=== PATIENT | female | born 1935 | race Caucasian/White ===

== ENCOUNTER → 2020-08-15 10:15 | Outpatient (BNVA) | payer MEDICARE, SELFPAY | PROVIDERS: PCP Internal Medicine; Visit Provider Internal Medicine Cardiovascular Disease ==

== ENCOUNTER → 2020-08-30 09:02 | Outpatient (REF) | payer MEDICARE, SELFPAY ==
--- NOTE | ~2020-08-30 | NM_ITS ---
Exercise Myocardial perfusion study Indication: Chest pain and shortness of breath to evaluate for myocardial ischemia Technique: The patient was brought in for an exercise perfusion study on 08/30/2020. Patient performed exercise as per Sanket protocol and was injected 30 mCi of sestamibi was given intravenously one target HR was achieved. Images were obtained using the SPECT gamma camera interlaced with the gating device. Images were obtained in supine position. Resting perfusion study was performed on 08/31/2020. Patient was administered 30 mCi of sestamibi intravenously at rest. Images were then obtained in supine position. Images obtained with and without CT attenuation. Total DLP 153 mGy-cm. Images were processed with the software and compared side to side in short axis, horizontal long axis and vertical long axis views. Findings: The stress perfusion study showed both on attenuated as well as attenuated corrected images show normal uptake of radiotracer in all segments of LV myocardium. There is suggestion of left ventricle hypertrophy.. The gated study shows normal LV systolic function with calculated LVEF of 70%. LV cavity is normal in size. The gated study shows normal systolic wall thickening and contraction of all segments. There is no transient ischemic dilation. Resting study shows nontender images show mildly reduced uptake in the basal and mid lateral wall of the LV myocardium. Attenuation corrected images show minimally reduced uptake in the distal septum of the LV myocardium.. Gating at rest reveals normal systolic wall motion with visually estimated ejection fraction at greater than 70 %. The findings are consistent with normal myocardial perfusion. NM/NM cardiolite stress test Impression: 1. Normal myocardial fusion 2. Gated LVEF is 70% 3. Transient ischemic dilatation not present Stress EKG is positive for ischemia
--- NOTE | 2020-08-30 09:06 | CA_ITS ---
Transthoracic Echocardiogram Patient (Last, First, Middle): Vanessa Hightower, Gender: Female Date of : 1935 Age: 84 Procedure Date: 08/30/2020 Procedure Type: Transthoracic Echocardiogram Location: OP Height: 167.64 cm Weight: 92.53 kg BSA: 2.02 m2 Heart Rate: bpm BP: 160 / 70 mmHg Motion And Time Study Teacher: ASCENCION Referring MD: Julio Cesar Min MD Tearoom Host: Julio Cesar Min MD Symptoms: R06.02 - Shortness of breath Study Quality: Technically Difficult ECG Rhythm: Sinus Conclusions: - 1. Technically difficult study 2. Normal LV systolic function with impaired relaxation filling pattern with elevated filling pressures 3. Mildly dilated left atrium 4. Bioprosthetic aortic valve with normal gradients up to 15 mm Hg 5. No gross pericardial effusion Findings Left Ventricle Normal left ventricular size, thickness, and systolic function. The visually estimated ejection fraction is between 55-60%. Regional wall motion abnormalities can not be excluded due to suboptimal endocardial definition. Spectral Doppler is indicative of an impaired relaxation filling pattern. Elevated filling pressures. E/E prime ratio is >15, consistent with elevated filling pressures. Right Ventricle Normal right ventricular cavity size and systolic function. Atria The left atrium is mildly dilated. Interatrial shunt cannot be excluded. The right atrium was not well visualized. Aortic Valve A bioprosthetic aortic valve is present. The prosthetic aortic valve appears to be functioning normally. The aortic valve was not well visualized. There is mild calcification of the aortic valve. The peak aortic gradient is 26 mmHg.The mean gradient is 15 mmHg. There is no aortic valve regurgitation. the valve leaflets are not well visualized. The valve is well seated with no abnormal rocking motion. Mitral Valve There is mild anterior and moderate posterior mitral leaflet thickening. There is mild mitral annular calcification. There is mild mitral valve regurgitation. There is no mitral valve stenosis. Pulmonic Valve The pulmonic valve was not well visualized. Tricuspid Valve The tricuspid valve was not well visualized. Tricuspid regurgitation envelope is inadequate for calculation of right ventricular systolic pressure. Great Vessels All visible segments of the aorta are normal in size. The pulmonary artery was not well visualized. Venous The inferior vena cava was not well visualized. Pericardium/Pleural There is no evidence of pericardial effusion. Prior Study Comparison No previous study in the last 5 years for comparison Measurements M-Mode Liner Measurements Normals - Women/Men AOV Cusps: 1.80 1.5-2.6 cm/m2 2D Linear Measurements IVSd: 1.07 0.6-0.9/0.6-1.0 cm LVIDd: 4.52 3.9-5.3/4.2-5.9 cm LVIDd Index: 2.24 2.4-3.2/2.2-3.1 cm/m2 LVIDs: 3.06 2.0-3.6 cm LVPWd: 1.07 0.7-1.1 cm Ao Root: 2.70 2.1-3.5 cm LA Diam: 3.60 2.7-3.8/3.0-4.0 cm LAIDs Index: 1.78 1.5-2.3 cm/m2 LV Mass: 211.19 67-162/88-224 g LV Mass Index: 104.55 43-95/49-115 g/m2 LVOT Diam: 2.20 3.0+(-)1.3 cm 2D Systolic Function EF 4C: 46.40 >55% EF 2C: 56.70 >55% Mitral Valve MV Pk E: 1.48 MV PK A: 1.53 MV Decel Time: 309.00 E/A: 1.00 E'Lateral: 7.51 E'Medial: 4.57 E/E' Med: 32.40 E/E' Lat: 19.70 PHT: 90.00 MVA PHT: 2.44 Decel [place]: 4.78 Aortic Valve AoV Pk Tim: 2.53 AoV Mn Tim: 1.77 AoV VTI: 0.60 AoV Pk Grad: 26.00 Aov Mn Grad: 15.00 RODRIGO Cont.VTI: 1.85 LVOT LVOT Pk Tim: 1.07 LVOT Mn Tim: 0.68 LVOT VTI: 0.29 LVOT Pk Grad: 5.00 LVOT Mn Grad: 2.00 LVOT Diam: 2.20 LVOT Area: 3.80 Diastolic Function MV Pk E: 1.48 MV Pk A: 1.53 E/A: 1.00 E'Medial: 4.57 E/E' Med: 32.40 E' Laterial: 7.51 E/E' Lat: 19.70 Tricuspid Valve RA Press: 8.00 Great Vessels Aorta Ao Root-2D: 2.70 2.0-3.7 cm Ao Asc: 2.60 2.1-3.4 cm Ao Arch: 2.90 Pulmonary Valve PV Pk Tim: 1.29 Peak PV Grad: 7.00 Updated in Other Vendor System with Status of Final Julio Cesar Min MD electronically signed on 08/31/2020 5:38:14 PM with status of Final
--- NOTE | 2020-08-30 09:30 | CA_ITS ---
Acquisition Time: 2020-08-30 09:27:21 Total Exercise Time: 00:05:01 Test Indications: SOB Medications: SEE CHART Protocol: SILVIA Max HR: 137 BPM 99% of Pred: 138 BPM Max BP: 210/084 mmHG Max Work Load: 4.6 METS Exercise stress test with exercise 5 min 1 sec of Silvia stage 1, with moderate shortness of breath, no chest discomfort, with one 3 beat NSVT at 4 min exercise, with hypertensive response to exercise with max BP 210/84, with EKG changes meeting criteria for ischemia: downsloping ST depressions 2mm lead II, 1.5mm leads III, aVF, V5, 1 mm V4, V6 with slow gradual improvement in recovery back to baseline. SOB improved quickly with rest. Nuclear images pending. Test reviewed with Dr Min. Referred By: Julio Cesar Min Overread By: MERRITT LEYVA
== END ==
LOC: HO.CARD 09:02
PROVIDERS: PCP Nurse Practitioner Family; Visit Provider Internal Medicine Cardiovascular Disease
DX: R07.9 Chest pain, unspecified (principal); R06.02 Shortness of breath
CPT/HCPCS: 78452; 93017; 93306; A9500

== ENCOUNTER → 2020-08-30 | Outpatient (REF) | payer MEDICARE, SELFPAY | LOC: HO.CARD | PROVIDERS: Visit Provider Internal Medicine Cardiovascular Disease | DX: R06.02 Shortness of breath (principal); I10 Essential (primary) hypertension; E78.5 Hyperlipidemia, unspecified; Z95.2 Presence of prosthetic heart valve; Z79.82 Long term (current) use of aspirin; Z79.899 Other long term (current) drug therapy | CPT/HCPCS: 93005; 99202 ==

== ENCOUNTER → 2020-09-06 10:04 | Outpatient (BNVA) | payer MEDICARE, SELFPAY | PROVIDERS: PCP Nurse Practitioner Family; Visit Provider Internal Medicine Cardiovascular Disease | DX: Z13.89 Encounter for screening for other disorder (principal) | CPT/HCPCS: Q3014 ==

== ENCOUNTER → 2021-05-04 10:53 | Outpatient (BNVA) | payer MEDICARE, SELFPAY | PROVIDERS: PCP Nurse Practitioner Family; Visit Provider Internal Medicine Cardiovascular Disease | DX: I10 Essential (primary) hypertension (principal); Z95.2 Presence of prosthetic heart valve | CPT/HCPCS: 99212 ==

== ENCOUNTER → 2021-08-22 10:32 | Outpatient (REF) | payer MEDICARE, SELFPAY ==
--- NOTE | 2021-08-22 10:34 | CA_ITS ---
Transthoracic Echocardiogram Patient (Last, First, Middle): Vanessa Hightower, Gender: Female Date of : 1935 Age: 85 Procedure Date: 08/22/2021 Procedure Type: Transthoracic Echocardiogram Location: OP Height: 170.18 cm Weight: 89.81 kg BSA: 2.01 m2 Heart Rate: 71 bpm BP: 143 / 73 mmHg Diaper Folder: BILL Referring MD: Julio Cesar Min MD Events Associate: Julio Cesar Min MD Symptoms: Z95.2 - Presence of prosthetic heart valve Study Quality: Fair/Contrast ECG Rhythm: Sinus Conclusions: - 1. Normal LV systolic function with impaired relaxation filling pattern with elevated filling pressures 2. Moderately dilated left atrium 3. Normally function bioprosthetic aortic valve with mean gradient of 12 mmHg 4. Severe mitral calcification 5. No gross pericardial effusion Findings Procedure Information Contrast agent, definity, is being given per protocol without apparent complications. Left Ventricle Normal left ventricular size, thickness, and systolic function. The visually estimated ejection fraction is between 65-70%. Spectral Doppler is indicative of an impaired relaxation filling pattern. Elevated left atrial and left ventricular end-diastolic pressures. E/E prime ratio is >15, consistent with elevated filling pressures. There is mild septal asymmetric hypertrophy. Right Ventricle Normal right ventricular cavity size and systolic function. Atria The left atrium is moderately dilated. There is no evidence of interatrial shunt. The right atrium is mildly dilated. Aortic Valve A bioprosthetic aortic valve is present. The prosthetic aortic valve appears to be functioning normally. The mean gradient is 12 mmHg. There is no aortic valve regurgitation. Mitral Valve There is mild anterior and moderate posterior mitral leaflet thickening. There is severe mitral annular calcification. There is trace mitral valve regurgitation. There is no mitral valve stenosis. Pulmonic Valve The pulmonic valve is likely normal. There is trace pulmonic valve regurgitation. Tricuspid Valve Likely normal tricuspid valve structure and function. Tricuspid regurgitation envelope is inadequate for calculation of right ventricular systolic pressure. Normal right atrial pressure. Great Vessels All visible segments of the aorta are normal in size. The pulmonary artery was not well visualized. Venous The inferior vena cava is normal in size and collapses greater than 50% with inspiration. Pericardium/Pleural There is no evidence of pericardial effusion. Prior Study Comparison No significant change compared to prior study dated: 08/30/2020. Measurements 2D Linear Measurements IVSd: 1.46 0.6-0.9/0.6-1.0 cm LVIDd: 3.85 3.9-5.3/4.2-5.9 cm LVIDd Index: 1.92 2.4-3.2/2.2-3.1 cm/m2 LVIDs: 2.51 2.0-3.6 cm LVPWd: 0.89 0.7-1.1 cm LA Diam: 4.20 2.7-3.8/3.0-4.0 cm LAIDs Index: 2.09 1.5-2.3 cm/m2 LV Mass: 188.15 67-162/88-224 g LV Mass Index: 93.61 43-95/49-115 g/m2 LVOT Diam: 2.20 3.0+(-)1.3 cm 2D Systolic Function EF 4C: 74.70 >55% EF 2C: 79.80 >55% Mitral Valve MV VTI: 0.52 MV Pk Tim: 1.58 MV Mn Tim: 0.94 MV Pk Grad: 10.00 MV Mn Grad: 4.00 MV Pk E: 1.40 MV PK A: 1.48 MV Decel Time: 313.00 E/A: 0.90 E'Lateral: 8.60 E'Medial: 6.24 E/E' Med: 22.40 E/E' Lat: 16.30 PHT: 92.00 MVA PHT: 2.39 MVA Continuity: 1.92 Decel [place]: 4.47 Aortic Valve AoV Pk Tim: 2.21 AoV Mn Tim: 1.53 AoV VTI: 0.46 AoV Pk Grad: 20.00 Aov Mn Grad: 12.00 RODRIGO Cont.VTI: 2.15 LVOT LVOT Pk Tim: 1.02 LVOT Mn Tim: 0.74 LVOT VTI: 0.26 LVOT Pk Grad: 4.00 LVOT Mn Grad: 3.00 LVOT Diam: 2.20 LVOT Area: 3.80 Diastolic Function MV Pk E: 1.40 MV Pk A: 1.48 E/A: 0.90 E'Medial: 6.24 E/E' Med: 22.40 E' Laterial: 8.60 E/E' Lat: 16.30 Right Ventricle TAPSE (mm): 15.10 TVS' Tim: 7.97 Tricuspid Valve RA Press: 3.00 Great Vessels Aorta Ao Asc: 3.30 2.1-3.4 cm Pulmonary Valve PV Pk Tim: 1.06 Peak PV Grad: 4.00 Updated in Other Vendor System with Status of Final Julio Cesar Min MD electronically signed on 08/23/2021 4:16:32 PM with status of Final
== END ==
LOC: HO.CARD 10:32
PROVIDERS: PCP Nurse Practitioner Family; Visit Provider Internal Medicine Cardiovascular Disease
DX: Z95.2 Presence of prosthetic heart valve (principal)
CPT/HCPCS: 93306; Q9957

== ENCOUNTER → 2021-11-08 10:40 | Outpatient (BNVA) | payer MEDICARE, SELFPAY | PROVIDERS: PCP Nurse Practitioner Family; Visit Provider Internal Medicine Cardiovascular Disease | DX: I10 Essential (primary) hypertension (principal); Z95.2 Presence of prosthetic heart valve | CPT/HCPCS: 93005; 99212 ==

== ENCOUNTER → 2022-10-23 10:00 | Outpatient (REF) | payer MEDICARE, SELFPAY ==
--- NOTE | 2022-10-23 10:03 | CA_ITS ---
Transthoracic Echocardiogram Patient (Last, First, Middle): Vanessa Hightower, Gender: Female Date of : 1935 Age: 86 Procedure Date: 10/23/2022 Procedure Type: Transthoracic Echocardiogram Location: OP Height: 167.64 cm Weight: 83.92 kg BSA: 1.93 m2 Heart Rate: bpm BP: 148 / 66 mmHg Finance Business Partner: TO Referring MD: Julio Cesar Min MD Symptoms: Z95.2 - Presence of prosthetic heart valve Study Quality: Fair/contrast ECG Rhythm: Sinus Conclusions: - The left ventricular systolic function is hyperdynamic. The visually estimated ejection fraction is >70%. - A bioprosthetic aortic valve is present. The prosthetic aortic valve appears to be functioning normally. Findings Procedure Information Contrast agent, definity, is being given per protocol without apparent complications. Left Ventricle Normal left ventricular cavity size. The left ventricular systolic function is hyperdynamic. The visually estimated ejection fraction is >70%. There is no evidence of regional wall motion abnormalities. Evidence suggests grade I (mild) diastolic dysfunction. There is moderate septal asymmetric hypertrophy. Right Ventricle Mildly increased right ventricular cavity size. There is normal right ventricular systolic function. Atria The left atrium is moderately dilated. The right atrium is normal in size. Aortic Valve A bioprosthetic aortic valve is present. The prosthetic aortic valve appears to be functioning normally. There is no aortic valve regurgitation. Mitral Valve There is mild anterior mitral leaflet thickening. There is mild mitral annular calcification. There is trace mitral valve regurgitation. There is no mitral valve stenosis. Pulmonic Valve There is trace pulmonic valve regurgitation. Tricuspid Valve Normal tricuspid valve structure. There is trace tricuspid valve regurgitation. There is no evidence of pulmonary hypertension. Great Vessels The asc aorta is normal in size. Venous The inferior vena cava is normal in size and collapses greater than 50% with inspiration. Pericardium/Pleural There is no evidence of pericardial effusion. Prior Study Comparison No significant change compared to prior study dated: 08/22/2021. Measurements 2D Linear Measurements IVSd: 1.36 0.6-0.9/0.6-1.0 cm LVIDd: 3.80 3.9-5.3/4.2-5.9 cm LVIDd Index: 1.97 2.4-3.2/2.2-3.1 cm/m2 LVIDs: 2.32 2.0-3.6 cm LVPWd: 1.01 0.7-1.1 cm LA Diam: 3.90 2.7-3.8/3.0-4.0 cm LAIDs Index: 2.02 1.5-2.3 cm/m2 LV Mass: 187.21 67-162/88-224 g LV Mass Index: 97.00 43-95/49-115 g/m2 LVOT Diam: 2.00 3.0+(-)1.3 cm 2D Systolic Function EF 4C: 75.50 >55% Mitral Valve MV VTI: 0.59 MV Pk Tim: 1.58 MV Mn Tim: 0.82 MV Pk Grad: 10.00 MV Mn Grad: 3.00 MV Pk E: 1.19 MV PK A: 1.38 MV Decel Time: 328.00 E/A: 0.90 E'Lateral: 7.18 E'Medial: 3.70 E/E' Med: 32.20 E/E' Lat: 16.60 PHT: 96.00 MVA PHT: 2.29 MVA Continuity: 1.54 Decel [place]: 3.64 Aortic Valve AoV Pk Tim: 2.46 AoV Mn Tim: 1.83 AoV VTI: 0.62 AoV Pk Grad: 24.00 Aov Mn Grad: 15.00 RODRIGO Cont.VTI: 1.47 LVOT LVOT Pk Tim: 1.09 LVOT Mn Tim: 0.77 LVOT VTI: 0.29 LVOT Pk Grad: 5.00 LVOT Mn Grad: 3.00 LVOT Diam: 2.00 LVOT Area: 3.14 Diastolic Function MV Pk E: 1.19 MV Pk A: 1.38 E/A: 0.90 E'Medial: 3.70 E/E' Med: 32.20 E' Laterial: 7.18 E/E' Lat: 16.60 Right Ventricle TAPSE (mm): 17.80 TVS' Tim: 8.81 Tricuspid Valve RA Press: 3.00 Great Vessels Aorta Sinus of Valsalva: 3.07 2.0-3.[address] [place]: 2.21 1.7-3.4 cm Ao Asc: 3.40 2.1-3.4 cm Updated in Other Vendor System with Status of Final Dante Barnett MD electronically signed on 10/26/2022 9:58:46 AM with status of Final
== END ==
LOC: HO.CARD 10:00
PROVIDERS: PCP Nurse Practitioner Family; Visit Provider Internal Medicine Cardiovascular Disease
DX: Z95.2 Presence of prosthetic heart valve (principal)
CPT/HCPCS: 93306; Q9957

== ENCOUNTER → 2022-10-23 10:03 | Outpatient (BNV) | payer MEDICARE, SELFPAY | PROVIDERS: PCP Nurse Practitioner Family; Visit Provider Internal Medicine | DX: I34.81 Nonrheumatic mitral (valve) annulus calcification (principal); Z95.2 Presence of prosthetic heart valve | CPT/HCPCS: 93306 ==

== ENCOUNTER 2022-11-11 11:12 | Outpatient (AMB) | payer MEDICARE, SELFPAY ==
[2022-11-11 11:16] VITALS: BP 140/50; PULSE 69; BMI 31.0
--- NOTE | 2022-11-11 11:16 | A.OFFVIS_ITS ---
Intake Vital Signs 11/11/22 11:16 Height 5 ft 6 in Weight 191 lb 12.835 oz BMI 31.0 BP 140/50 H Blood Pressure Location Lt brachial Position Sitting Pulse 69 Intake Visit Reasons: 1 year follow up, after echo Intake Note: 1 year f/up after echo some s/b Recyclable Materials Collector Required: No Allergies Sulfa (Sulfonamide Antibiotics) [SULFA (SULFONAMIDE ANTIBIOTICS)] Allergy (Unknown, Verified 11/11/22 11:27) RASH Medication List - Last Reconciled 11/11/22 by Julio Cesar Min MD acetaminophen (Tylenol Extra Strength) 1,000 mg PO ONCE PRN amlodipine 5 mg PO DAILY amoxicillin 2,000 mg (4 x 500 mg) PO ONCE PRN aspirin (Adult Low Dose Aspirin) 81 mg PO DAILY atorvastatin 20 mg PO DAILY cholecalciferol (vitamin D3) 25 mcg PO DAILY levothyroxine 125 mcg PO DAILY losartan 100 mg PO DAILY metoprolol succinate ER 25 mg PO DAILY omeprazole 20 mg PO DAILY HPI HPI Comments History of Present Illness Details Vanessa comes for follow-up. She denies any new cardiac symptoms. Denies any prolonged palpitation irregular heartbeat. Denies any worsening shortness of breath. Continues to have exertional shortness of breath. Recent echocardiogram shows normally functioning bioprosthetic aortic valve. She denies any orthopnea, PND, leg edema. Denies any prolonged palpitations or lightheadedness. [facility] Medical History HTN (hypertension) Hyperlipidemia Melanoma Severe aortic stenosis Surgical History H/O mastectomy History of partial colectomy Status post aortic valve replacement Family History Father No problems noted. Mother No problems noted. Social History Household Members: Children Housing: House Alcohol intake: former Patient Tobacco Use Status: Former Tobacco user Quit Date: 1975 Tobacco use type: Cigarette Cigarette Packs Per Day: 1 Current occupational status: retired Review of Systems ENT Reports dizziness Card Denies chest pain, Denies chest pain at rest, Denies chest pain with activity, Denies rapid heart rate, Denies pedal edema, Denies edema, Denies leg edema, Denies lightheadedness, Denies palpitations, Denies dyspnea, Denies dyspnea on exertion and Denies orthopnea Resp Denies cough, Denies dyspnea and Denies dyspnea on exertion GI Denies hematochezia and Denies change in stool character Musc Denies abnormal gait, Reports limited range of motion, Reports muscle cramps, Denies muscle weakness, Denies numbness, Denies radiating pain into limb, Denies stiffness and Denies tingling Neuro Denies abnormal gait, Reports dizziness, Denies numbness and Denies tingling Endo Denies palpitations Physical Exam Vital Signs: Last Vital Signs Pulse 69 11/11/22 11:16 BP 140/50 H 11/11/22 11:16 BMI result Body Mass Index 31.0 Repeat blood pressure is 152/70 Const General: cooperative, comfortable, no acute distress, alert, awake and well groomed Nutritional Appearance: obese Orientation/consciousness: patient oriented x3 Limitations: no limitations HEENT Head: Yes normocephalic and Yes atraumatic Neck Neck: Yes trachea midline, Yes supple and Yes no JVD Chest Chest palpation & inspection: abnormal inspection of the chest kyphotic and other (Well-healed sternotomy scar) Resp Effort & Inspection: normal respiratory effort Auscultation: clear to auscultation bilaterally Cardio Jugular venous distension: no JVD Palpation: normal PMI Rate: regular rate Rhythm: regular rhythm Heart sounds: S1 normal heart sound present, S2 normal heart sound present, Murmur heart sound present systolic early and Other heart sounds present (S4 present) GI Auscultation: normal bowel sounds Skin General skin exam: no rashes or lesions noted Neuro General: patient oriented x3 and no focal motor deficits Extrem General: No no clubbing, cyanosis or edema and Yes other (Bilateral varicosities as well as discoloration around the ankles and spide) Psych Appearance: grossly normal Office Procedures EKG Details: EKG shows normal sinus rhythm with nonspecific ST T wave changes [id number], Complete Assessment & Plan Assessment & Plan (1) Status post aortic valve replacement: Comment: 23 mm bioprosthetic aortic valve replacement, bovine prosthesis, April [address] Nando Hendricks. No concomitant CAD Code(s): Z95.2 - Presence of prosthetic heart valve Plan: Status post bioprosthetic aortic valve replacement surgically. No recurrent symptoms and the bioprosthetic valve is working well. She is doing very well from this perspective. Continue low-dose aspirin therapy for life. Continue SBE prophylaxis as per ACC/aha guidelines. Advise lipid modification goal LDL less than 100 mg/dL. (2) HTN (hypertension): Code(s): I10 - Essential (primary) hypertension Plan: Hypertension which is currently well optimized. Advised to monitor blood pressure intermittently at home. Target goal blood pressure less than 130/84. Low-salt diet was discussed. Advised to maintain activity level as tolerated. Will follow up in the clinic in 1 year's time, sooner p.r.n.. Thank you for allowing me to partake in her care Orders: Orders CA echo transthoracic complete 52 Weeks Z95.2 - Presence of prosthetic heart valve Coding Level of Care Code Est Pt Level 4 (90800) Diagnoses Status post aortic valve replacement Z95.2 HTN (hypertension) I10 CPT Codes EKG - CPT: 93378-[id number], Complete ([id number])
== END 2022-11-11 11:37 | disposition home or self-care (01) ==
PROVIDERS: PCP Nurse Practitioner Family; Visit Provider Internal Medicine Cardiovascular Disease
DX: Z95.2 Presence of prosthetic heart valve (principal); I10 Essential (primary) hypertension
CPT/HCPCS: 93010; 99214

== ENCOUNTER → 2022-11-11 11:12 | Outpatient (BNVA) | payer MEDICARE, SELFPAY | PROVIDERS: PCP Nurse Practitioner Family; Visit Provider Internal Medicine Cardiovascular Disease | DX: I10 Essential (primary) hypertension (principal); Z95.2 Presence of prosthetic heart valve | CPT/HCPCS: 93005; 99212 ==

== ENCOUNTER 2022-12-14 19:42 | Inpatient (IN) | payer MEDICARE, SELFPAY ==
--- NOTE | ~2022-12-14 | FL_ITS ---
EXAMINATION: Intraoperative fluoroscopy CLINICAL INFORMATION: Intramedullary nailing of the right hip. COMPARISON: Right hip x-rays December 14, 2022 TECHNIQUE: Intraoperative fluoroscopy was provided for use by Dr. Phelps. A total of 4 images were saved to PACS. A radiologist was not present during imaging. Today's dictation is only for administrative purposes to document intraoperative fluoroscopic usage. TOTAL FLUOROSCOPIC TIME: 0.7 minutes DAP: 0.416 mGy-m2 FL/FL guidance in OR FINDINGS~\^^ Intraoperative fluoroscopy provided for use by Dr. Phelps. Please see operative note for detailed findings.
--- NOTE | ~2022-12-14 | XR_ITS ---
EXAMINATION: XR CHEST CLINICAL INFORMATION: Preoperative. COMPARISON: None available. TECHNIQUE: Frontal view of the chest was obtained. FINDINGS: Prominent cardiomediastinal silhouette with midline sternotomy wires and aortic valve replacement. Diffuse nonspecific interstitial thickening. No focal consolidation, pleural effusion or pneumothorax. Bilateral axillary surgical clips. No acute osseous findings. Additional surgical clips projecting over the right lower cervical region. XR/XR chest 1V IMPRESSION: 1. No focal consolidation, pleural effusion or pneumothorax. 2. Nonspecific diffuse interstitial thickening which could be seen with asthma, bronchitis, reactive airways disease or atypical infections. This could also be chronic in nature related with underlying emphysema/interstitial lung disease. No prior images are available for comparison.
--- NOTE | ~2022-12-14 | XR_ITS ---
EXAMINATION: XR HIP, RIGHT CLINICAL INFORMATION: Fall. COMPARISON: None available. TECHNIQUE: Two views of the right hip. FINDINGS: Right intertrochanteric femoral fracture with approximately 1.5 cm of lateral distraction of the distal fragment. Suggestion of nonspecific cortical irregularity of the left lesser trochanter. Pelvic rim and pubic symphysis are maintained. SI joints are symmetric. Prominent multifocal osseous spurring. 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 Small pelvic phleboliths. Scattered vascular calcifications. XR/XR hip RT w PEL1V IMPRESSION: 1. Right intertrochanteric femoral fracture with approximately 1.5 cm of lateral distraction of the distal fragment. 2. Suggestion of nonspecific cortical irregularity of the left lesser trochanter, underlying pathologic fracture is not excluded, recommend correlation with point tenderness. Further evaluation with CT or MRI as clinically deemed appropriate.
[2022-12-14 19:53] VITALS: BP 182/62; PULSE 60; RESP 14; TEMP 36.8; O2SAT 96; BMI 28.2
[2022-12-14 19:57] VITALS: BP 182/62; PULSE 60; RESP 14; TEMP 36.8; O2SAT 96
[2022-12-14 20:02] VITALS: BP 182/62; PULSE 60; RESP 14; TEMP 36.8; O2SAT 96
--- NOTE | 2022-12-14 20:03 | PC.NURSE ---
Pt ca&ox4, no signs of distress. Pts family member at bedside. Pt reports she took her HTN meds this morning, but expected her b/p to be high. Pt denies headstrike/LOC Pt reports 10/10 inner right leg/thigh/groin pain. Plan of care ongoing.
--- NOTE | 2022-12-14 20:30 | ED.FALL ---
HPI - Fall General Chief Complaint: Fall Stated Complaint: fall, pain in hip on right side, per ems Time Seen by Provider: 12/14/22 19:45 Source: patient Mode of arrival: EMS Limitations: no limitations History of Present Illness HPI Narrative: Patient apparently was in the kitchen cleaning up after dinner psychiatric social worker supervisor door was open when she turned tripped over the psychiatric social worker supervisor door and landed on her right side complaining of pain in the right hip and groin area unable to bear weight because of pain no head injury no loss of consciousness no chest pain dizziness or palpitation patient not on any blood thinners Related Data Home Medications Medication Instructions Recorded Confirmed acetaminophen 500 mg tablet 1,000 mg PO ONCE PRN Pain 08/15/20 11/11/22 (Tylenol Extra Strength) aspirin 81 mg tablet,delayed 81 mg PO DAILY 08/15/20 11/11/22 release (Adult Low Dose Aspirin) atorvastatin 20 mg tablet 20 mg PO DAILY 08/15/20 11/11/22 levothyroxine 125 mcg tablet 125 mcg PO DAILY 08/15/20 11/11/22 omeprazole 20 mg capsule,delayed 20 mg PO DAILY 08/15/20 11/11/22 release cholecalciferol (vitamin D3) 25 25 mcg PO DAILY 09/06/20 11/11/22 mcg (1,000 unit) capsule Previous Rx's Medication Instructions Recorded amoxicillin 500 mg tablet 2,000 mg (4 x 500 mg) PO ONCE PRN 09/04/21 Prior to dental visit #4 tabs amlodipine 5 mg tablet 5 mg PO DAILY #90 tabs 01/14/22 losartan 100 mg tablet 100 mg PO DAILY #90 tabs 10/07/22 metoprolol succinate 25 mg 25 mg PO DAILY #90 tabs 12/12/22 tablet,extended release 24 hr Allergies Allergy/AdvReac Type Severity Reaction Status Date / Time Sulfa (Sulfonamide Allergy Unknown RASH Verified 11/11/22 11:27 Antibiotics) [SULFA (SULFONAMIDE ANTIBIOTICS)] Review of Systems Review of Systems: Yes all other systems are reviewed and are negative PMFSH Past Medical History Medical History Melanoma Hyperlipidemia HTN (hypertension) Severe aortic stenosis Surgical History H/O mastectomy History of partial colectomy Status post aortic valve replacement Family History Family History Father No problems noted. Mother No problems noted. Social History Social History Household Members: Children Housing: House Alcohol intake: former Patient Tobacco Use Status: Former Tobacco user Quit Date: 1975 Tobacco use type: Cigarette Cigarette Packs Per Day: 1 Smoked in Last 30 Days: No Use of substances other than those prescribed or required for medical reasons: No Advance Directives: No Advance Directives Information Provided: No Current occupational status: retired Physical Exam Vital Signs: Vital Signs: Last Vital Signs Temp 98.2 F 12/14/22 20:02 Pulse 60 12/14/22 20:02 Resp 14 12/14/22 20:02 BP 182/62 H 12/14/22 20:02 Pulse Ox 96 12/14/22 20:02 O2 Del Method Room Air 12/14/22 20:02 BMI result Body Mass Index 28.2 Appearance: Alert. Oriented X3. In moderate distress Eyes: PERRLA, ENT: Pharynx normal. Oral Mucosa moist Neck: Normal inspection. Neck supple. CVS: Normal heart rate and rhythm. Pulses normal. Respiratory: No respiratory distress. Equal air entry bilateral, no wheezing/rales/rhonchi Abdomen: Soft and nontender. Bowel sounds are present, no mass palpable, no CVA tenderness Skin: Skin warm and dry. Normal skin color. Normal skin turgor. Extremities: No lower extremity edema. No calf tenderness right leg externally rotated and shortened tenderness in the groin area Neuro: Oriented X 3. No motor deficit. No sensory deficit.No cerebellar signs , cranial nerves II-XII intact Medical Decision Making Medical Decision Making MDM Narrative: Patient with mechanical fall hip x-ray showed a right intertrochanteric fracture will admit patient for Ortho Consult Healthcare Provider Management of the patient was discussed with: Hospitalist Discharge Plan Discharge Clinical Impression: Closed fracture of right hip Patient Disposition: Admitted As Inpatient
--- NOTE | 2022-12-14 20:36 | ECG_ITS ---
Test Reason : FALL Blood Pressure : / mmHG Vent. Rate : 059 BPM Atrial Rate : 059 BPM P-R Int : 118 ms QRS Dur : 108 ms QT Int : 450 ms P-R-T Axes : 046 041 076 degrees QTc Int : 445 ms Sinus bradycardia Nonspecific T wave abnormality Abnormal ECG No previous ECGs available Referred By: Jorge Luis Sherwood Electronically Signed By:HOMERO BOB
[2022-12-14] MEDS: Morphine Sulfate 4 MG/ML CARTRIDGE IVPUSH (21:52)
[2022-12-14] MEDS: ondansetron HCL 4 MG/2 ML VIAL IVPUSH (21:52)
[2022-12-14 21:53] LABS: Basophils Absolute Auto 0.1 X10*3/uL (0.0-0.2); Basophils Percent Auto 1.2 % (0-2); Eosinophils Absolute Auto 0.5 X10*3/uL (0.0-0.4); Eosinophils Percent Auto 3.9 % (0-4); Hematocrit 40.2 % (37.0-47.0); Hemoglobin 12.7 g/dl (12.0-16.0); Imm Gran Abs Auto 0.04 X10*3/uL (0.00-0.03); Imm Gran Pct Auto 0.3 % (0.0-0.4); Lymphocytes Absolute Auto 2.8 X10*3/uL (1.2-4.9); MANUAL DIFF FLAG NO; Mean Corpuscular HGB Conc 31.6 g/dl (31.0-35.0); Mean Corpuscular Hemoglobin 30.5 pg (27.0-33.0); Mean Corpuscular Volume 96.4 fL (80.0-98.0); Mean Platelet Volume 10.9 fL (9.4-12.3); Monocytes Absolute Auto 0.9 X10*3/uL (0.1-1.2); Neutrophils Absolute Auto 7.2 x10*3/uL (2.0-8.3); Neutrophils Percent Auto 62.6 % (45-73); Platelet Count 193 X10*3/uL (160-400); Red Blood Count 4.17 X10*6/uL (4.20-5.50); Red Cell Distribution Width 13.8 % (11.0-16.0); White Blood Count 11.6 X10*3/uL (4.8-10.8)
--- NOTE | 2022-12-14 21:57 | P.HPHOSP_ITS ---
History of Present Illness Date of Service: 12/14/22 Chief Complaint: Fall This is a 87-year-old female with pertinent history of essential hypertension, mixed hyperlipidemia, hypothyroidism, gastroesophageal reflux disease presents to the emergency department for evaluation after a fall. 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 No loss of consciousness prior to the fall. No chest pain or palpitations prior to the fall. No rhythmic jerking movement of extremities or tongue bite. Patient complains of severe right-sided hip pain after the fall. No fever, chills, shortness of breath, abdominal pain, changes in urinary or bowel habits. In the emergency department, imaging with right intertrochanteric femur fracture Review of Systems 2 Constitutional: Constitutional: Reports no additional constitutional complaints Cardiovascular: Cardiovascular: Reports no additional cardiovascular complaints Respiratory: Respiratory: Reports no additional respiratory complaints Gastrointestinal: Gastrointestinal: Reports no additional gastrointestinal complaints Genitourinary: Genitourinary: Reports no additional female genitourinary complaints Musculoskeletal: Musculoskeletal: Reports arthralgias PMFSH Medical History Melanoma Hyperlipidemia HTN (hypertension) Severe aortic stenosis Family History Father No problems noted. Mother No problems noted. Surgical History H/O mastectomy History of partial colectomy Status post aortic valve replacement Social History Household Members: Children Housing: House Alcohol intake: former Patient Tobacco Use Status: Former Tobacco user Quit Date: 1975 Tobacco use type: Cigarette Cigarette Packs Per Day: 1 Smoked in Last 30 Days: No Use of substances other than those prescribed or required for medical reasons: No Advance Directives: No Advance Directives Information Provided: No Current occupational status: retired Meds Allergies Allergy/AdvReac Type Severity Reaction Status Date / Time Sulfa (Sulfonamide Allergy Unknown RASH Verified 11/11/22 11:27 Antibiotics) [SULFA (SULFONAMIDE ANTIBIOTICS)] Home Medications Medication Instructions Recorded Confirmed Last Taken Type acetaminophen 500 mg tablet 1,000 mg PO ONCE PRN Pain 08/15/20 11/11/22 Unknown History (Tylenol Extra Strength) aspirin 81 mg tablet,delayed 81 mg PO DAILY 08/15/20 11/11/22 Unknown History release (Adult Low Dose Aspirin) atorvastatin 20 mg tablet 20 mg PO DAILY 08/15/20 11/11/22 Unknown History levothyroxine 125 mcg tablet 125 mcg PO DAILY 08/15/20 11/11/22 Unknown History omeprazole 20 mg capsule,delayed 20 mg PO DAILY 08/15/20 11/11/22 Unknown History release cholecalciferol (vitamin D3) 25 25 mcg PO DAILY 09/06/20 11/11/22 Unknown History mcg (1,000 unit) capsule Physical Exam 2 Vital Signs and Narrative: Vital Signs: Last Vital Signs Temp 98.2 F 12/14/22 20:02 Pulse 60 12/14/22 20:02 Resp 14 12/14/22 20:02 BP 182/62 H 12/14/22 20:02 Pulse Ox 96 12/14/22 20:02 O2 Del Method Room Air 12/14/22 20:02 BMI result Body Mass Index 28.2 Elderly female lying in bed in no distress, hard of hearing Neck supple, no JVD Regular rate and rhythm, S1-S2 heard Regular breath sounds bilaterally, no wheezing or crackles appreciated Abdomen soft nontender, no guarding, no rigidity Patient is awake, alert and oriented to self, place, time and person ; no focal motor deficit Musculoskeletal: Limited right lower extremity movement due to pain Psych: Normal mood No pedal edema Results Labs 12/14/22 21:47 12/14/22 21:47 Labs: Laboratory Results - last 24 hr 12/14/22 21:47 MCV 96.4 MCH 30.5 MCHC 31.6 RDW 13.8 Plt Count 193 MPV 10.9 Immature Gran % (Auto) 0.3 Neut % (Auto) 62.6 Lymph % (Auto) 24.0 [place]es % (Auto) 8.0 Eos % (Auto) 3.9 Baso % (Auto) 1.2 Lymph # (Auto) 2.8 [place] # (Auto) 0.9 Eos # (Auto) 0.5 H Baso # (Auto) 0.1 Abs Immat Gran (auto) 0.04 H Absolute Neuts (auto) 7.2 Absolute Nucleated RBC 0.000 Nucleated RBC % (auto) 0.0 Imaging Radiologist's Impressions: Impressions Chest X-Ray 12/14/22 21:06 IMPRESSION: 1. No focal consolidation, pleural effusion or pneumothorax. 2. Nonspecific diffuse interstitial thickening which could be seen with asthma, bronchitis, reactive airways disease or atypical infections. This could also be chronic in nature related with underlying emphysema/interstitial lung disease. No prior images are available for comparison. Hip/Pelvis X-Ray 12/14/22 21:06 IMPRESSION: 1. Right intertrochanteric femoral fracture with approximately 1.5 cm of lateral distraction of the distal fragment. 2. Suggestion of nonspecific cortical irregularity of the left lesser trochanter, underlying pathologic fracture is not excluded, recommend correlation with point tenderness. Further evaluation with CT or MRI as clinically deemed appropriate. Assessment and Plan (1) Fracture, intertrochanteric, right femur: Status: Acute Plan This is a 87-year-old female with pertinent history of essential hypertension, mixed hyperlipidemia, hypothyroidism, gastroesophageal reflux disease presents to the emergency department for evaluation after a fall. #. Right intertrochanteric femoral fracture due to mechanical fall. Will admit patient and initiate IV opioids p.r.n. for symptomatic relief. Consult orthopedic surgery, appreciate assistance. Will keep patient NPO after midnight #. Preoperative risk. RCRI score 0, class 1 risk. #. Essential hypertension. Hold ARB for possible surgery to prevent postoperative hypotension. Continue beta-taran and amlodipine #. Mixed hyperlipidemia on statin #. Hypothyroidism on Synthroid #. Gastroesophageal reflux disease on PPI Med rec pending DVT prophylaxis: Hold Lovenox until surgical evaluation Full code. Discussed with patient and daughter at bedside Admit as inpatient and will require two night minimum hospital stay for evaluation of right femoral fracture. Specialist consult pending Time Spent With Patient Time: Total time managing care of this patient today ____ minutes. Quality Stroke Does the patient have a stroke diagnosis?: No VTE Prior VTE?: No VTE Risk Level:: Medical - moderate - high VTE Device Contraindication: Treatment Not Indicated VTE Drug Contraindication: Treatment Not Indicated
--- NOTE | 2022-12-14 21:57 | PC.NURSE ---
pt ca&ox4, no signs of distress. daughter remains at bedside. Pt medicated per may. IV placed 20g in right ac
--- NOTE | 2022-12-14 21:59 | PC.NURSE ---
labs collected and sent. plan of care ongoing.
[2022-12-14 22:05] LABS: Prothrombin Time 12.5 SEC (11.1-13.3)
[2022-12-14 22:10] LABS: Alanine Aminotransferase 17 U/L (0-31); Albumin Level 4.2 g/dL (3.5-5.0); Alkaline Phosphatase 140 U/L (39-117); Anion Gap 18 (12-20); Aspartate Amino Transferase 26 U/L (5-31); Bilirubin Total 0.5 mg/dL (0.0-1.0); Blood Urea Nitrogen 20 mg/dL (9-16); Calcium 9.8 mg/dL (8.4-10.2); Carbon Dioxide 22 mmol/L (22-29); Chloride 106 mmol/L (96-108); Creatinine Clr Calc Pharmacy 39.3; Estimated Glomerular Filt Rate 45; Glucose Random 111 mg/dL (60-115); Potassium 4.1 mmol/L (3.3-5.1); Sodium 142 mmol/L (135-145); Total Protein 8.5 g/dL (6.5-8.0)
[2022-12-14 22:36] VITALS: BP 154/58; PULSE 59; RESP 17; TEMP 36.7; O2SAT 94
--- NOTE | 2022-12-14 23:43 | PC.NURSE ---
Pt changed into hospital attire. Nikolai farrar placed Pt repositioned Plan of care ongoing.
[2022-12-15] VITALS (16 sets, daily range): BP systolic 128–169; BP diastolic 18–88; PULSE 61–73; RESP 13–18; TEMP 36.2–36.9; O2SAT 76–97
[2022-12-15] MEDS: 0.9 % Sodium Chloride Flush 3 ML SYRINGE IVFLUSH ×4 (00:37→23:46)
--- NOTE | 2022-12-15 01:06 | PC.NURSE ---
Pt noted to desat while asleep down to 82%. When stimulated, O2 sat increasing easily. MD Mckinney notified, O2 applied @ 1 lpm via NC. O2 sat increasing to 96%. Primary RN [place] notified. Staff transferring pt into a hospital bed for comfort and pain management.
[2022-12-15] MEDS: Morphine Sulfate 4 MG/ML CARTRIDGE IVPUSH ×2 (01:18→06:39)
--- NOTE | 2022-12-15 01:22 | PC.NURSE ---
Pt ca&ox4, no signs of distress. Pt reporting 8/10 hip pain pt medicated per mar. Plan of care ongoing.
--- NOTE | 2022-12-15 01:24 | PC.NURSE ---
Provider Dr. Mckinney made aware of pts b/p 156/37.
--- NOTE | 2022-12-15 05:14 | PC.NURSE ---
Camera placed in patient room due to hip fracture post fall. Camera #[id number], and camera room notified. I delivered patient label stickers to camera room. There were two staff and they informed me that they are at the max amount of patients they can each watch on their screen. There is hope there will be three camera monitors in the morning to add this patient to the camera sitter system. Patient however is alert and oriented and knows their limits, and agrees to ring for assistance.
[2022-12-15 08:14] LABS: Alanine Aminotransferase 19 U/L (0-31); Albumin Level 3.5 g/dL (3.5-5.0); Alkaline Phosphatase 111 U/L (39-117); Anion Gap 16 (12-20); Aspartate Amino Transferase 28 U/L (5-31); Bilirubin Total 0.5 mg/dL (0.0-1.0); Blood Urea Nitrogen 22 mg/dL (9-16); Calcium 9.3 mg/dL (8.4-10.2); Carbon Dioxide 25 mmol/L (22-29); Chloride 107 mmol/L (96-108); Creatinine Clr Calc Pharmacy 37.9; Estimated Glomerular Filt Rate 43; Glucose Random 111 mg/dL (60-115); Potassium 4.6 mmol/L (3.3-5.1); Sodium 143 mmol/L (135-145)
--- NOTE | 2022-12-15 08:35 | PM.EVENT ---
Event Note Date of Service: 12/15/22 Event Note: Right hip intertrochanteric fx -plan is to take to OR today for Right IMN -NPO full consult note to follow Time Spent With Patient Time: Total time managing care of this patient today ____ minutes.
--- NOTE | 2022-12-15 08:53 | PHA.MEDREC ---
Pharmacy Consult ? Medication Reconciliation Pharmacy has completed the medication reconciliation. Spoke to patient at bedside, she was able to report on most medications
--- NOTE | 2022-12-15 11:51 | HO.ANESPROP2 ---
HPI - Anesthesia Eval Consult details Narrative: Right femur fracture PMF Active Problems Active Problems: All Active Problems (Updated 12/14/22 @ 22:01 by Peri Mckinney MD) Fracture, intertrochanteric, right femur (Acute) Closed fracture of right hip (Acute) SOB (shortness of breath) on exertion (Acute) Breast cancer (Chronic) Hyperlipidemia (Acute) HTN (hypertension) (Acute) Status post aortic valve replacement (Acute) Past Medical History Medical History (Updated 12/15/22 @ 11:52 by Nasir Horta MD) Hypothyroidism Melanoma Hyperlipidemia HTN (hypertension) Severe aortic stenosis Family History Family History Father No problems noted. Mother No problems noted. Family history of problems with anesthesia: No Surgical History Surgical History H/O mastectomy History of partial colectomy Status post aortic valve replacement History of Problems with Anesthesia: No Social History Social History Household Members: Spouse and Family Housing: House Do you presently have visiting nurse or other home services: No Alcohol intake: former Patient Tobacco Use Status: Former Tobacco user Quit Date: 1975 Tobacco use type: Cigarette Cigarette Packs Per Day: 1 Second Hand Smoke Exposure: No Current occupational status: retired Meds Allergies Allergy/AdvReac Type Severity Reaction Status Date / Time Sulfa (Sulfonamide Allergy Unknown RASH Verified 11/11/22 11:27 Antibiotics) [SULFA (SULFONAMIDE ANTIBIOTICS)] Active Medications: Current Medications Acetaminophen (Acetaminophen 325 Mg Tablet) 650 mg PO Q6H PRN PRN Reason: Pain, Mild (Pain Scale 1-3) Acetaminophen (Acetaminophen Supp 650 Mg Supp.Rect) 650 mg AR Q6H PRN PRN Reason: Pain, Mild (Pain Scale 1-3) Amlodipine Besylate (Amlodipine Besylate 5 Mg Tablet) 5 mg PO DAILY [facility]; Protocol Atorvastatin Calcium (Atorvastatin Calcium 20 Mg Tablet) 20 mg PO DAILY [facility] Cefazolin Sodium/Dextrose (Ancef) 2 gm in 50 mls @ 100 mls/hr IV PREOP ONE Stop: 12/15/22 12:03 Levothyroxine Sodium (Levothyroxine Sodium 125 Mcg Tablet) 125 mcg PO DAILY@0600 [facility] Metoprolol Succinate (Metoprolol Succinate Er 25 Mg Tab.Er.24h) 25 mg PO DAILY [facility]; Protocol Morphine Sulfate (Morphine Sulfate 4 Mg/Ml Cartridge) 4 mg IVPUSH Q4H PRN; Protocol PRN Reason: Pain, Severe (Pain Scale 7-10) Last Admin: 12/15/22 06:39 Dose: 4 mg Omeprazole (Omeprazole 20 Mg Capsule.Dr) 20 mg PO DAILY@0630 [facility] Ondansetron HCl (Ondansetron Hcl 4 Mg/2 Ml Vial) 4 mg IVPUSH Q8H PRN PRN Reason: Nausea and Vomiting Sodium Chloride (0.9 % Sodium Chloride Flush 3 Ml Syringe) [facility] Last Admin: 12/15/22 08:22 Dose: 3 ml Home Medications Medication Instructions Recorded Confirmed Last Taken Type aspirin 81 mg tablet,delayed 81 mg PO DAILY 08/15/20 12/15/22 12/14/22 History release (Adult Low Dose Aspirin) atorvastatin 20 mg tablet 20 mg PO DAILY 08/15/20 12/15/22 12/14/22 History levothyroxine 125 mcg tablet 125 mcg PO DAILY 08/15/20 12/15/22 12/14/22 History omeprazole 20 mg capsule,delayed 20 mg PO DAILY 08/15/20 12/15/22 12/14/22 History release cholecalciferol (vitamin D3) 25 25 mcg PO DAILY 09/06/20 12/15/22 12/14/22 History mcg (1,000 unit) capsule Exam Exam Date and Time: December 15, 2022 115 Height,Weight and Vital Signs: Height 5 ft 7 in Weight 81.647 kg Last Vital Signs Temp 97.1 F 12/15/22 07:45 Pulse 61 12/15/22 07:45 Resp 18 12/15/22 07:45 BP 145/67 H 12/15/22 07:45 Pulse Ox 96 12/15/22 07:45 O2 Del Method Nasal Cannula 12/15/22 07:45 O2 Flow Rate 1 12/15/22 07:45 Pertinent Lab Results Pertinent Lab Results: Laboratory Tests 12/14/22 12/15/22 21:47 06:29 WBC 11.6 H RBC 4.17 L Hgb 12.7 Hct 40.2 MCV 96.4 MCH 30.5 MCHC 31.6 RDW 13.8 Plt Count 193 MPV 10.9 Immature Gran % (Auto) 0.3 Neut % (Auto) 62.6 Lymph % (Auto) 24.0 [place] % (Auto) 8.0 Eos % (Auto) 3.9 Baso % (Auto) 1.2 Lymph # (Auto) 2.8 [place] # (Auto) 0.9 Eos # (Auto) 0.5 H Baso # (Auto) 0.1 Abs Immat Gran (auto) 0.04 H Absolute Neuts (auto) 7.2 Absolute Nucleated RBC 0.000 Nucleated RBC % (auto) 0.0 Hold Purple Top SEE NOTE PT 12.5 INR 1.0 Sodium 142 143 Potassium 4.1 4.6 Chloride 106 107 Carbon Dioxide 22 25 Anion Gap 18 16 BUN 20 H 22 H Creatinine 1.15 1.19 Estim Creat Clear Calc 39.3 37.9 Estimated GFR 45 43 Random Glucose 111 111 Calcium 9.8 9.3 Total Bilirubin 0.5 0.5 AST 26 28 ALT 17 19 Alkaline Phosphatase 140 H 111 Total Protein 8.5 H 7.0 Albumin 4.2 3.5 Airway Mallampati Class: II TM Dist: >3cm Neck ROM: Full Loose/Missing/Broken Teeth: No Heart: RRR Lungs: CTA Assessment and Plan Assessment Anesthesia Assessment: Anesthesia Plan Discussed and Chart Reviewed Final Anesthetic Review Family History of Problems with Anesthesia: No History of Problems with Anesthesia: No NPO: Yes ASA Class: III and Emergency Final Preanesthetic Review: No Changes in Pt Med Stat, Meds/Allgs Chart Reviewed, Consent Obtained/Reviewed and Anes Risks/Benef Reviewed Patient Risk: Intermediate Procedure Risk: Intermediate Anesthetic Plan Anesthetic Plan: GA Disposition: Standard PACU
--- NOTE | 2022-12-15 11:54 | P.CONOP_ITS ---
History of Present Illness [facility] Consult date: 12/15/22 Consult reason: fracture Chief complaint: Fall Narrative: 87 yo F s/p fall on right hip. no LOC. No additional complaints. Imaging in the ED revealed an intertrochanteric femur fracture. She was admitted to the hospitalist service. Today she complains of right hip pain with movement. She was previously ambulatory. Review of Systems 2 Review of Systems: Yes all other systems are reviewed and are negative, unobtainable due to endotracheal tube, Unobtainable due to mental condition, Unobtainable due to mental status and Other Constitutional: Constitutional: Reports no additional constitutional complaints Eyes: Eyes: Reports no additional eye complaints ENT: Reports system reviewed and no additional complaints, except as documented Cardiovascular: Cardiovascular: Reports no additional cardiovascular complaints Respiratory: Respiratory: Reports no additional respiratory complaints Gastrointestinal: Gastrointestinal: Reports no additional gastrointestinal complaints Musculoskeletal: Musculoskeletal: Reports as per HPI Integumentary/Breasts: Skin/Breast: Reports system reviewed and no additional complaints, except as docu Neurologic: Reports system reviewed and no additional complaints, except as documented and Reports as per HPI Psychiatric: Psychiatric: Reports no additional psychiatric complaints [facility] Past Medical History Medical History (Updated 12/15/22 @ 11:52 by Nasir Horta MD) Hypothyroidism Melanoma Hyperlipidemia HTN (hypertension) Severe aortic stenosis Family History Family History Father No problems noted. Mother No problems noted. Surgical History Surgical History H/O mastectomy History of partial colectomy Status post aortic valve replacement Social History Social History Household Members: Spouse and Family Housing: House Do you presently have visiting nurse or other home services: No Alcohol intake: former Patient Tobacco Use Status: Former Tobacco user Quit Date: 1975 Tobacco use type: Cigarette Cigarette Packs Per Day: 1 Second Hand Smoke Exposure: No Current occupational status: retired Meds Allergies Allergy/AdvReac Type Severity Reaction Status Date / Time Sulfa (Sulfonamide Allergy Unknown RASH Verified 11/11/22 11:27 Antibiotics) [SULFA (SULFONAMIDE ANTIBIOTICS)] Active Medications: Current Medications Acetaminophen (Acetaminophen 325 Mg Tablet) 650 mg PO Q6H PRN PRN Reason: Pain, Mild (Pain Scale 1-3) Acetaminophen (Acetaminophen Supp 650 Mg Supp.Rect) 650 mg DE Q6H PRN PRN Reason: Pain, Mild (Pain Scale 1-3) Amlodipine Besylate (Amlodipine Besylate 5 Mg Tablet) 5 mg PO DAILY [facility]; Protocol Atorvastatin Calcium (Atorvastatin Calcium 20 Mg Tablet) 20 mg PO DAILY [facility] Cefazolin Sodium/Dextrose (Ancef) 2 gm in 50 mls @ 100 mls/hr IV PREOP ONE Stop: 12/15/22 12:03 Levothyroxine Sodium (Levothyroxine Sodium 125 Mcg Tablet) 125 mcg PO DAILY@0600 [facility] Metoprolol Succinate (Metoprolol Succinate Er 25 Mg Tab.Er.24h) 25 mg PO DAILY [facility]; Protocol Morphine Sulfate (Morphine Sulfate 4 Mg/Ml Cartridge) 4 mg IVPUSH Q4H PRN; Protocol PRN Reason: Pain, Severe (Pain Scale 7-10) Last Admin: 12/15/22 06:39 Dose: 4 mg Omeprazole (Omeprazole 20 Mg Capsule.Dr) 20 mg PO DAILY@0630 [facility] Ondansetron HCl (Ondansetron Hcl 4 Mg/2 Ml Vial) 4 mg IVPUSH Q8H PRN PRN Reason: Nausea and Vomiting Sodium Chloride (0.9 % Sodium Chloride Flush 3 Ml Syringe) [facility] Last Admin: 12/15/22 08:22 Dose: 3 ml Home Medications Medication Instructions Recorded Confirmed Last Taken Type aspirin 81 mg tablet,delayed 81 mg PO DAILY 08/15/20 12/15/22 12/14/22 History release (Adult Low Dose Aspirin) atorvastatin 20 mg tablet 20 mg PO DAILY 08/15/20 12/15/22 12/14/22 History levothyroxine 125 mcg tablet 125 mcg PO DAILY 08/15/20 12/15/22 12/14/22 History omeprazole 20 mg capsule,delayed 20 mg PO DAILY 08/15/20 12/15/22 12/14/22 History release cholecalciferol (vitamin D3) 25 25 mcg PO DAILY 09/06/20 12/15/22 12/14/22 History mcg (1,000 unit) capsule Physical Exam 2 Vital Signs: Vital Signs: Last Vital Signs Temp 97.1 F 12/15/22 07:45 Pulse 61 12/15/22 07:45 Resp 18 12/15/22 07:45 BP 145/67 H 12/15/22 07:45 Pulse Ox 96 12/15/22 07:45 O2 Del Method Nasal Cannula 12/15/22 07:45 O2 Flow Rate 1 12/15/22 07:45 BMI result Body Mass Index 28.2 Const: General: cooperative, healthy appearing, no acute distress, well developed and alert HEENT: Head: Yes normal to inspection, Yes normocephalic and Yes atraumatic Mouth: moist mucous membranes Eyes: General: appearance normal, both eyes and all related structures EOM: EOMs intact bilaterally Chest: Other: no audible wheezing. Resp: Other: No audible wheezing Effort & Inspection: normal respiratory effort Cardio: Other: Radial pulse palpable with no rythmic abnormalities Back/Spine/Pelvis: Cervical Spine: normal cervical lordosis Skin: General skin exam: no rashes or lesions noted Neuro: General: no focal motor deficits Extrem: Other: externally rotated right hip. Pain with log roll. Psych: Appearance: grossly normal and well kempt Mental Status: mental status grossly normal Speech and movement: Normal speech and movement present Affect: normal affect Attitude: cooperative Results Labs 12/14/22 21:47 12/15/22 06:29 Labs: Abnormal lab results 12/14/22 12/15/22 Range/Units 21:47 06:29 WBC 11.6 H (4.8-10.8) X10*3/uL RBC 4.17 L (4.20-5.50) X10*6/uL Eos # (Auto) 0.5 H (0.0-0.4) X10*3/uL Abs Immat Gran (auto) 0.04 H (0.00-0.03) X10*3/uL BUN 20 H 22 H (9-16) mg/dL Alkaline Phosphatase 140 H (39-117) U/L Total Protein 8.5 H (6.5-8.0) g/dL H & H 12/14/22 Range/Units 21:47 Hgb 12.7 (12.0-16.0) g/dl Hct 40.2 (37.0-47.0) % Coagulation 12/14/22 Range/Units 21:47 INR 1.0 (0.9-1.1) All other labs normal. Diagnostic results Hip x-ray: image reviewed (Intertrochanteric hip fracture right hip) Assessment and Plan (1) Closed fracture of right hip: Status: Acute Plan Closed fracture , intertrochanteric, right hip. I recommend fixation. SHe is ambulatroy. She does have but not modifiable. This is a risk factor as well as ago and complaints of SOB at baseline. I discussed the risks benefits and alternatives including but not limited to the risk of pain, infection, stiffness, need for further surgery as well as potential medical complications such as blood clots, pulmonary embolism and cardiac complications. We will proceed forward. Time Spent With Patient Time: Total time managing care of this patient today __20__ minutes. Procedures Date of Service Date of Service: 12/15/22
[2022-12-15] MEDS: Metoprolol Succinate ER 25 MG TAB.ER.24H PO (12:00)
--- NOTE | 2022-12-15 12:14 | HO.PM.IMPN ---
Subjective Subjective Date of Service: 12/15/22 Interval History: seen and evaluated this morning Pain under fair control No other complaints Review of Systems Review of Systems: Yes all other systems are reviewed and are negative Physical Exam Vital Signs: Vital Signs: Last Vital Signs Temp 97.1 F 12/15/22 07:45 Pulse 61 12/15/22 07:45 Resp 18 12/15/22 07:45 BP 145/67 H 12/15/22 07:45 Pulse Ox 96 12/15/22 07:45 O2 Del Method Nasal Cannula 12/15/22 07:45 O2 Flow Rate 1 12/15/22 07:45 BMI result Body Mass Index 28.2 Const: Other: Constitutional : Awake, interactive, not in distress Neck : Normal inspection, Supple Cardiovascular : RRR, no JVP, no lower extremity edema Respiratory : good bilateral air entry, no crackles, wheezes or rhonchi Gastrointestinal: soft, lax, Normal bowel sounds, Non tender Skin : Warm, Dry Skeletal: Right leg shorter and externally rotated Neurological : Alert & oriented x3, No focal deficit Objective Data Active Medications Acetaminophen (Acetaminophen 325 Mg Tablet) 650 mg PO Q6H PRN PRN Reason: Pain, Mild (Pain Scale 1-3) Acetaminophen (Acetaminophen Supp 650 Mg Supp.Rect) 650 mg [place] Q6H PRN PRN Reason: Pain, Mild (Pain Scale 1-3) Amlodipine Besylate (Amlodipine Besylate 5 Mg Tablet) 5 mg PO DAILY [facility]; Protocol Atorvastatin Calcium (Atorvastatin Calcium 20 Mg Tablet) 20 mg PO DAILY [facility] Fentanyl (Fentanyl Citrate/Pf 100 Mcg/2 Ml Vial) 25 mcg IVPUSH Q5M PRN; Protocol PRN Reason: Pain, Moderate(Pain Scale 4-6) Cefazolin Sodium/Dextrose (Ancef) 2 gm in 50 mls @ 100 mls/hr IV PREOP ONE Stop: 12/15/22 12:30 Levothyroxine Sodium (Levothyroxine Sodium 125 Mcg Tablet) 125 mcg PO DAILY@0600 [facility] Metoprolol Succinate (Metoprolol Succinate Er 25 Mg Tab.Er.24h) 25 mg PO DAILY [facility]; Protocol Last Admin: 12/15/22 12:00 Dose: 25 mg Documented By: ALEKSANDR Morphine Sulfate (Morphine Sulfate 4 Mg/Ml Cartridge) 4 mg IVPUSH Q4H PRN; Protocol PRN Reason: Pain, Severe (Pain Scale 7-10) Last Admin: 12/15/22 06:39 Dose: 4 mg Documented By: MONALISA Morphine Sulfate (Morphine Sulfate 2 Mg/Ml Cartridge) 2 mg IVPUSH Q5M PRN; Protocol PRN Reason: Pain, Moderate(Pain Scale 4-6) Omeprazole (Omeprazole 20 Mg Capsule.Dr) 20 mg PO DAILY@0630 [facility] Ondansetron HCl (Ondansetron Hcl 4 Mg/2 Ml Vial) 4 mg IVPUSH Q8H PRN PRN Reason: Nausea and Vomiting Oxycodone HCl (Oxycodone Hcl Immed Release 5 Mg Tablet) 5 mg PO ONCE PRN PRN Reason: Pain, Severe (Pain Scale 7-10) Sodium Chloride (0.9 % Sodium Chloride Flush 3 Ml Syringe) 3 ml IVFLUSH QSHIFT [facility] Last Admin: 12/15/22 08:22 Dose: 3 ml Documented By: ALEKSANDR Labs 12/14/22 21:47 12/15/22 06:29 Labs: Laboratory Results - last 24 hr 12/14/22 12/15/22 21:47 06:29 MCV 96.4 MCH 30.5 MCHC 31.6 RDW 13.8 Plt Count 193 MPV 10.9 Immature Gran % (Auto) 0.3 Neut % (Auto) 62.6 Lymph % (Auto) 24.0 [place] % (Auto) 8.0 Eos % (Auto) 3.9 Baso % (Auto) 1.2 Lymph # (Auto) 2.8 [place] # (Auto) 0.9 Eos # (Auto) 0.5 H Baso # (Auto) 0.1 Abs Immat Gran (auto) 0.04 H Absolute Neuts (auto) 7.2 Absolute Nucleated RBC 0.000 Nucleated RBC % (auto) 0.0 Hold Purple Top SEE NOTE PT 12.5 INR 1.0 Anion Gap 18 16 Estim Creat Clear Calc 39.3 37.9 Estimated GFR 45 43 Random Glucose 111 111 Calcium 9.8 9.3 Total Bilirubin 0.5 0.5 AST 26 28 ALT 17 19 Alkaline Phosphatase 140 H 111 Total Protein 8.5 H 7.0 Albumin 4.2 3.5 Assessment and Plan (1) Fracture, intertrochanteric, right femur: Status: Acute (2) Closed fracture of right hip: Status: Acute Plan This is a 87-year-old female with pertinent history of essential hypertension, mixed hyperlipidemia, hypothyroidism, gastroesophageal reflux disease presents to the emergency department for evaluation after a fall. # Right intertrochanteric femoral fracture due to mechanical fall. IV opioids p.r.n. for pain orthopedic surgery NPO after midnight # Essential hypertension Hold ARB to prevent postoperative hypotension. Continue beta-taran and amlodipine # Mixed hyperlipidemia statin # Hypothyroidism Synthroid # Gastroesophageal reflux disease PPI DVT prophylaxis SCDs Admit as inpatient and will require overnight minimum hospital stay for evaluation of right femoral fracture. Specialist consult pending Time Spent With Patient Time: Total time managing care of this patient today ____ minutes. Quality Stroke Does the patient have a stroke diagnosis?: No VTE Prior VTE?: No VTE Risk Level:: Medical - moderate - high VTE Device Contraindication: Treatment Not Indicated VTE Drug Contraindication: Treatment Not Indicated
--- NOTE | 2022-12-15 14:14 | PM.OP ---
Brief Operative Note Date of Service: 12/15/22 Pre-op diagnosis: Right IT hip fracture Post-op diagnosis: same Procedure: IMN right hip Implants: Karen [id number] 125 deg imn with 105 mm hip screw and 40 mm distal interlock Surgeon: Nestor Phelps MD Anesthesia: GETA Was an Lumber Salvager used for this Procedure?: No Estimated blood loss (mL): 100 IV fluids (mL): 600 Pathology: none sent Condition: stable Disposition: PACU
--- NOTE | 2022-12-15 14:50 | MHC.CM.PN ---
CM MET WITH PTS DAUGHTER, MONSE, GRAND DAUGHTER, AND SON IN ROOM WHILE PT WAS OFF UNIT PER FAMILY, PT LIVES WITH HER , DAUGHTER AND GRAND DAUGHTER AND IS INDEPENDENT WITH CARE SHE USES A CANE PRN AND HAD NO SERVICES PER FAMILY, PT IS VERY INDEPENDENT AND ACTIVE AT BASELINE THEY REPORT THERE IS A HCP AT HOME, THEY WILL BRING A COPY ON FRIDAY PCP: SADIQ HAN DCP: [facility] IS PREFERRED [facility] SECOND CHOICE BLS TRANSPORT
[2022-12-15] MEDS: Acetaminophen 325 MG TABLET 650 MG PO (15:52)
[2022-12-15] MEDS: ceFAZolin Sodium/Dextrose,Iso 2 GM/50 ML PIGGYBACK IV (19:18)
[2022-12-16] VITALS: BP 121/58; PULSE 61; RESP 18; TEMP 36.4; O2SAT 99
[2022-12-16] MEDS: Levothyroxine Sodium 125 MCG TABLET PO (05:16)
[2022-12-16] MEDS: Omeprazole 20 MG CAPSULE.DR PO (05:16)
[2022-12-16] MEDS: Acetaminophen 325 MG TABLET 650 MG PO (05:19)
[2022-12-16 05:27] VITALS: O2SAT 96
[2022-12-16 07:04] VITALS: BP 120/83; PULSE 55; RESP 16; TEMP 36.6; O2SAT 91
[2022-12-16 07:25] LABS: Hematocrit 32.5 % (37.0-47.0); Hemoglobin 10.1 g/dl (12.0-16.0); Mean Corpuscular HGB Conc 31.1 g/dl (31.0-35.0); Mean Corpuscular Hemoglobin 31.1 pg (27.0-33.0); Mean Platelet Volume 12.5 fL (9.4-12.3); Platelet Count 141 X10*3/uL (160-400); Red Blood Count 3.25 X10*6/uL (4.20-5.50); Red Cell Distribution Width 14.1 % (11.0-16.0); White Blood Count 9.8 X10*3/uL (4.8-10.8)
--- NOTE | 2022-12-16 07:27 | PM.PNORT ---
Subjective Subjective Date of Service: 12/16/22 Interval history: POD1 s/p rt hip IM Nail. No overnight events. Pain is well managed. Resting in bed comfortably. No additional compalints. Physical Exam Vital Signs: Vital Signs: Last Vital Signs Temp 97.9 F 12/16/22 07:04 Pulse 55 12/16/22 07:04 Resp 16 12/16/22 07:04 BP 120/83 12/16/22 07:04 Pulse Ox 91 L 12/16/22 07:04 O2 Del Method Room Air 12/16/22 07:04 O2 Flow Rate 2 12/16/22 00:00 BMI result Body Mass Index 28.2 Const: General: cooperative, healthy appearing and no acute distress Resp: Effort & Inspection: normal respiratory effort and able to speak in complete sentences Cardio: Rate: regular rate Peripheral pulses: Peripheral pulses 2+ throughout GI: Palpation (GI): Soft to palpation Skin: Lesions: no lesions Rashes: no rashes Extrem: Other: Right hip bandages are c/d/i. Able o dorsi/plantar flex. NVI. Procedures Date of Service Date of Service: 12/16/22 Progress Note: A&P Assessment and plan (1) Fracture, intertrochanteric, right femur: Status: Acute Plan Continue pain mgmnt Begin Lovenox for dvt ppx begin PT for right hip IM Nail - WBAT Dispo planning-Pending PT eval, pain mgmnt Time Spent With Patient Time: Total time managing care of this patient today ____ minutes. Quality Stroke Does the patient have a stroke diagnosis?: No VTE Prior VTE?: No VTE Risk Level:: Medical - moderate - high VTE Device Contraindication: Treatment Not Indicated VTE Drug Contraindication: Treatment Not Indicated
[2022-12-16] MEDS: Morphine Sulfate 4 MG/ML CARTRIDGE IVPUSH ×2 (07:28→14:14)
[2022-12-16 07:40] LABS: Anion Gap 13 (12-20); Blood Urea Nitrogen 26 mg/dL (9-16); Calcium 9.1 mg/dL (8.4-10.2); Carbon Dioxide 25 mmol/L (22-29); Chloride 106 mmol/L (96-108); Estimated Glomerular Filt Rate 46; Glucose Random 118 mg/dL (60-115); Sodium 139 mmol/L (135-145)
[2022-12-16 08:26] VITALS: BP 120/83; PULSE 55; O2SAT 91
--- NOTE | 2022-12-16 08:43 | W.PM.OPN ---
Operative Note Operative Note Date of Service: 12/15/22 Narrative: Date of Service: 12/15/22 Pre-op diagnosis: Right IT hip fracture Post-op diagnosis: same Procedure: IMN right hip Implants: Karen [id number] 125 deg imn with 105 mm hip screw and 40 mm distal interlock Surgeon: Nestor Phelps MD Anesthesia: GETA Was an Pharmacy Graduate Intern used for this Procedure?: No Estimated blood loss (mL): 100 IV fluids (mL): 600 Pathology: none sent Condition: stable Disposition: PACU Procedure in detail: Patient was brought to the operating room and prepped and draped in standard sterile fashion. Time-out was called to identify proper site procedure proper surgeon and IV antibiotics per weight were administered. She was positioned on the fracture table and a traction and slight internal rotation were performed and biplanar fluoroscopy confirmed initial fracture reduction. I then made a stab incision proximal to the greater trochanter in using a guidewire made a entry point just lateral to the tip of the greater trochanter and placed a guidewire into the femoral metadiaphysis. I then over-reamed with 15 mm Reamer placed my ball-tip guidewire down distally in the femur. I selected a [id number] 125 deg IMN nail. I placed the nail without difficulty. I then turned my attention to the hip screw where I used a guidewire and a tip apex distance of less than 1.5 measured my hip screw. The K wire was not passing through the center of the nail and the tip sheared off. This was not retrievable and was left intra-osseous adjacent to the nail. It was of no clinical significance and retrieval would have been morbid. The size was < 5 mm. A second K wire was reinserted and the hip screw re measured. A 105 mm hip screw was measured. I then pre drilled and placed a hip screw using biplanar fluoroscopy. Once I was happy with the position of the hip screw I turned my attention to the distal aspect of the nail. Using the staytic guide I placed 1 static distal interlocking screw in standard AO technique. I then removed all I then placed my set screw proximally and removed all extraneous instrumentation. Final biplanar radiographs were taken. I was satisfied with the position of the hardware and the fracture reduction. I think copiously irrigated closed with absorbable sutures charleen Traction was let down patient was placed in sterile dressing awakened from anesthesia brought to recovery room stable condition there were no known complications.
[2022-12-16] MEDS: 0.9 % Sodium Chloride Flush 3 ML SYRINGE IVFLUSH ×3 (09:03→20:19)
[2022-12-16] MEDS: Atorvastatin Calcium 20 MG TABLET PO (09:04)
[2022-12-16] MEDS: amLODIPine Besylate 5 MG TABLET PO (09:04)
[2022-12-16] MEDS: Metoprolol Succinate ER 25 MG TAB.ER.24H PO (09:04)
[2022-12-16 09:14] LABS: Hematocrit 31.6 % (37.0-47.0); Hemoglobin 9.8 g/dl (12.0-16.0)
[2022-12-16] MEDS: Enoxaparin Sodium 40 MG/0.4 ML SYRINGE SUBCUT (14:04)
--- NOTE | 2022-12-16 14:21 | HO.POSTANES ---
Post Anesthesia Evaluation Post Anesthesia Evaluation Date of Service: 12/16/22 Vital Signs: Vital Signs Temp Pulse Resp BP Pulse Ox O2 Del Method 12/16/22 08:26 55 120/83 91 L 12/16/22 07:04 97.9 F 55 16 120/83 91 L Room Air 12/16/22 05:27 96 Room Air Anesthesia: General Mental Status: Awake Pain Control: Satisfactory Nausea/Vomiting: None Hydration: Adequate Anesthesia-Related Issues: No Anes. Related Issues
--- NOTE | 2022-12-16 14:59 | P.PNIM_ITS ---
Subjective Subjective Date of Service: 12/16/22 Interval History: seen and evaluated this morning Pain under fair control POD1 No other complaints Review of Systems Review of Systems: Yes all other systems are reviewed and are negative Physical Exam 2 Vital Signs: Vital Signs: Last Vital Signs Temp 97.9 F 12/16/22 07:04 Pulse 55 12/16/22 08:26 Resp 16 12/16/22 07:04 BP 120/83 12/16/22 08:26 Pulse Ox 91 L 12/16/22 08:26 O2 Del Method Room Air 12/16/22 07:04 O2 Flow Rate 2 12/16/22 00:00 BMI result Body Mass Index 28.2 Const: Other: Constitutional : Awake, interactive, not in distress Neck : Normal inspection, Supple Cardiovascular : RRR, no JVP, no lower extremity edema Respiratory : good bilateral air entry, no crackles, wheezes or rhonchi Gastrointestinal: soft, lax, Normal bowel sounds, Non tender Skin : Warm, Dry Skeletal: surgical wound clean with no surrounding erythema or drainage Neurological : Alert & oriented x3, No focal deficit Objective Data Active Medications Acetaminophen (Acetaminophen 325 Mg Tablet) 650 mg PO Q6H PRN PRN Reason: Pain, Mild (Pain Scale 1-3) Last Admin: 12/16/22 05:19 Dose: 650 mg Documented By: PRADIP Acetaminophen (Acetaminophen Supp 650 Mg Supp.Rect) 650 mg [place] Q6H PRN PRN Reason: Pain, Mild (Pain Scale 1-3) Amlodipine Besylate (Amlodipine Besylate 5 Mg Tablet) 5 mg PO DAILY [facility]; Protocol Last Admin: 12/16/22 09:04 Dose: 5 mg Documented By: GA Atorvastatin Calcium (Atorvastatin Calcium 20 Mg Tablet) 20 mg PO DAILY [facility] Last Admin: 12/16/22 09:04 Dose: 20 mg Documented By: GA Enoxaparin Sodium (Enoxaparin Sodium 40 Mg/0.4 Ml Syringe) 40 mg SUBCUT Q24H [facility] Last Admin: 12/16/22 14:04 Dose: 40 mg Documented By: GA Levothyroxine Sodium (Levothyroxine Sodium 125 Mcg Tablet) 125 mcg PO DAILY@0600 [facility] Last Admin: 12/16/22 05:16 Dose: 125 mcg Documented By: PRADIP Metoprolol Succinate (Metoprolol Succinate Er 25 Mg Tab.Er.24h) 25 mg PO DAILY [facility]; Protocol Last Admin: 12/16/22 09:04 Dose: 25 mg Documented By: GA Morphine Sulfate (Morphine Sulfate 4 Mg/Ml Cartridge) 4 mg IVPUSH Q4H PRN; Protocol PRN Reason: Pain, Severe (Pain Scale 7-10) Last Admin: 12/16/22 14:14 Dose: 4 mg Documented By: GA Omeprazole (Omeprazole 20 Mg Capsule.Dr) 20 mg PO DAILY@0630 [facility] Last Admin: 12/16/22 05:16 Dose: 20 mg Documented By: PRADIP Ondansetron HCl (Ondansetron Hcl 4 Mg/2 Ml Vial) 4 mg IVPUSH Q8H PRN PRN Reason: Nausea and Vomiting Sodium Chloride (0.9 % Sodium Chloride Flush 3 Ml Syringe) 3 ml IVFLUSH QSHIFT [facility] Last Admin: 12/16/22 09:03 Dose: 3 ml Documented By: GA Labs 12/16/22 08:58 12/16/22 05:44 Labs: Laboratory Results - last 24 hr 12/16/22 05:44 MCV 100.0 H MCH 31.1 MCHC 31.1 RDW 14.1 Plt Count 141 L D MPV 12.5 H Absolute Nucleated RBC 0.000 Nucleated RBC % (auto) 0.0 Anion Gap 13 Estim Creat Clear Calc 40.0 Estimated GFR 46 Random Glucose 118 H Calcium 9.1 Assessment and Plan (1) Fracture, intertrochanteric, right femur: Status: Acute Plan This is a 87-year-old female with pertinent history of essential hypertension, mixed hyperlipidemia, hypothyroidism, gastroesophageal reflux disease presents to the emergency department for evaluation after a fall. # Right intertrochanteric femoral fracture S\P IMN right hip POD 1 opioids p.r.n. for pain orthopedic surgery following PT, OT start Lovenox dvt ppx # Essential hypertension Hold ARB to prevent postoperative hypotension. Continue beta-taran and amlodipine # Mixed hyperlipidemia statin # Hypothyroidism Synthroid # Gastroesophageal reflux disease PPI DVT prophylaxis Lovenox Admit as inpatient and will require overnight minimum hospital stay for evaluation of right femoral fracture. Specialist consult pending Time Spent With Patient Time: Total time managing care of this patient today ____ minutes. Quality Stroke Does the patient have a stroke diagnosis?: No VTE Prior VTE?: No VTE Risk Level:: Medical - moderate - high VTE Device Contraindication: Treatment Not Indicated VTE Drug Contraindication: Treatment Not Indicated
[2022-12-16 16:00] VITALS: BP 133/86; PULSE 71; RESP 16; TEMP 36.1
--- NOTE | 2022-12-16 16:17 | MHC.CM.PN ---
EMR reviewed. Per MD rounds pt to DC tomorrow 12/17/22. [facility] has accepted. Transportation scheduled for 12/17 at 11am via [facility]. LM for daughter, Sangeeta, to update on plan and request copy of HCP. Awaiting response. CM will continue to follow.
[2022-12-17] VITALS: BP 130/87; PULSE 81; RESP 18; TEMP 37.5; O2SAT 96
[2022-12-17] MEDS: Omeprazole 20 MG CAPSULE.DR PO (05:13)
[2022-12-17] MEDS: Levothyroxine Sodium 125 MCG TABLET PO (05:13)
[2022-12-17] MEDS: Morphine Sulfate 4 MG/ML CARTRIDGE IVPUSH (05:16)
[2022-12-17 08:00] VITALS: BP 132/60; PULSE 64; RESP 17; TEMP 36.3; O2SAT 100
[2022-12-17] MEDS: Metoprolol Succinate ER 25 MG TAB.ER.24H PO (09:14)
[2022-12-17] MEDS: Atorvastatin Calcium 20 MG TABLET PO (09:14)
[2022-12-17] MEDS: amLODIPine Besylate 5 MG TABLET PO (09:14)
[2022-12-17] MEDS: 0.9 % Sodium Chloride Flush 3 ML SYRINGE IVFLUSH (09:15)
--- NOTE | 2022-12-17 10:27 | P.DS_ITS ---
DS: Providers Provider Date of Service: 12/17/22 Date of admission: 12/14/22 21:55 Primary care physician: Christiane Greenwood NP Consults: 12/14/22 22:44 Consult to Orthopedics Routine Consulting Provider: [facility] [place] Orth[facility] Surgeons Reason for consultation: right femur fracture DS: Diagnosis Discharge Diagnosis (1) Fracture, intertrochanteric, right femur: Status: Acute (2) Closed fracture of right hip: Status: Acute (3) Fall: Status: Acute DS: Summary Hospital Course Hospital Course: Admission note HPI This is a 87-year-old female with pertinent history of essential hypertension, mixed hyperlipidemia, hypothyroidism, gastroesophageal reflux disease presents to the emergency department for evaluation after a fall. Patient states the structural steel engineer door was open and while she was stepping back, she tripped on it and fell on her right side. No loss of consciousness prior to the fall. No chest pain or palpitations prior to the fall. No rhythmic jerking movement of extremities or tongue bite. Patient complains of severe right-sided hip pain after the fall. No fever, chills, shortness of breath, abdominal pain, changes in urinary or bowel habits. In the emergency department, imaging with right intertrochanteric femur fracture Hospital course # Right intertrochanteric femoral fracture S\P IMN right hip Admitted for surgical intervention. IMN was done by dr Phelps with good results as she was able to participate with PT with good tolerance. Started on Lovenox SC for DVT prophylaxis. Continue physical therapy Oxycodone as needed for pain Miralax daily for constipation Lovenox for clots prevention for 4 weeks To follow with Orthopedic team as outpatient in clinic Time Spent with Patient Time attestation: Total time managing care of this patient today ____ minutes. Discharge coordination time: Greater than 30 minutes Quality: Safe Use of Opioids Does Pt have an Active Cancer Diagnosis on the Problem List?: No Quality: Stroke Does the patient have a stroke diagnosis?: No Physical Exam Vital Signs: Vital Signs: Last Vital Signs Temp 97.4 F 12/17/22 08:00 Pulse 64 12/17/22 08:00 Resp 17 12/17/22 08:00 BP 132/60 12/17/22 08:00 Pulse Ox 100 12/17/22 08:00 O2 Del Method Nasal Cannula 12/17/22 08:00 O2 Flow Rate 3.0 12/17/22 08:00 BMI result Body Mass Index 28.2 Const: Other: Constitutional : Awake, interactive, not in distress Neck : Normal inspection, Supple Cardiovascular : RRR, no JVP, no lower extremity edema Respiratory : good bilateral air entry, no crackles, wheezes or rhonchi Gastrointestinal: soft, lax, Normal bowel sounds, Non tender Skin : Warm, Dry Skeletal: surgical wound clean with no surrounding erythema or drainage Neurological : Alert & oriented x3, No focal deficit DS: Data Imaging XR : Radiologist's impression: ITS Impressions Chest X-Ray 12/14/22 21:06 IMPRESSION: 1. No focal consolidation, pleural effusion or pneumothorax. 2. Nonspecific diffuse interstitial thickening which could be seen with asthma, bronchitis, reactive airways disease or atypical infections. This could also be chronic in nature related with underlying emphysema/interstitial lung disease. No prior images are available for comparison. Hip/Pelvis X-Ray 12/14/22 21:06 IMPRESSION: 1. Right intertrochanteric femoral fracture with approximately 1.5 cm of lateral distraction of the distal fragment. 2. Suggestion of nonspecific cortical irregularity of the left lesser trochanter, underlying pathologic fracture is not excluded, recommend correlation with point tenderness. Further evaluation with CT or MRI as clinically deemed appropriate. Guidance Fluoroscopy 12/15/22 14:02 FINDINGS~\^^ Intraoperative fluoroscopy provided for use by Dr. Phelps. Please see operative note for detailed findings. Discharge Plan Discharge Anticipated Discharge Date/Time: 12/17/22 10:22 Patient Disposition: Xfer SNF Discharge Diagnosis: Femur fracture Referrals: [facility] [place] [Outside] - 1 Week Christiane Greenwood NP [Primary Care Provider] - 1 Week Discharge Medications: New enoxaparin 40 mg/0.4 mL Syringe 40 mg subcut Q24H 28 Days Qty: 11.2 0RF oxycodone 5 mg tablet 5 mg PO Q6H PRN (Reason: pain (scale score 7-10)) Qty: 14 0RF Rx Instructions: Partial Fill upon patient request. polyethylene glycol 3350 [Miralax] 17 gram/dose powder 17 g PO DAILY 10 Days Qty: 170 0RF Continued amlodipine 5 mg tablet 5 mg PO DAILY Qty: 90 2RF losartan 100 mg tablet 100 mg PO DAILY Qty: 90 3RF metoprolol succinate 25 mg tablet extended release 24 hr 25 mg PO DAILY Qty: 90 3RF cholecalciferol (vitamin D3) 25 mcg (1,000 unit) capsule 25 mcg PO DAILY omeprazole 20 mg capsule,delayed release(DR/EC) 20 mg PO DAILY levothyroxine 125 mcg tablet 125 mcg PO DAILY atorvastatin 20 mg tablet 20 mg PO DAILY aspirin [Adult Low Dose Aspirin] 81 mg tablet,delayed release (DR/EC) 81 mg PO DAILY Discharge Orders: Discharge Order (Routine); Ordered 12/17/22 Ordered By: Sunny Julian Diet: Low salt diet Activity on Discharge: As tolerated Stand Alone Forms: Patient Portal Discharge page Care Plan Goals: Read below Health Concerns: Read below Plan of Treatment: Read below Assessment: You were admitted for right hip fracture that was corrected by surgical intervention. Continue physical therapy Oxycodone as needed for pain Miralax daily for constipation Lovenox for clots prevention for 4 weeks To follow with Orthopedic team as outpatient in clinic Discharge Date/Time: 12/17/22 15:37
--- NOTE | 2022-12-17 10:54 | PM.PNORT ---
Subjective Subjective Date of Service: 12/17/22 Interval history: POD 2 s/p rt hip IM Nail. No overnight events. Pain is well managed. Resting in bed comfortably. No additional compalints. Physical Exam Vital Signs: Vital Signs: Last Vital Signs Temp 97.4 F 12/17/22 08:00 Pulse 64 12/17/22 08:00 Resp 17 12/17/22 08:00 BP 132/60 12/17/22 08:00 Pulse Ox 100 12/17/22 08:00 O2 Del Method Nasal Cannula 12/17/22 08:00 O2 Flow Rate 3.0 12/17/22 08:00 BMI result Body Mass Index 28.2 Const: General: cooperative, healthy appearing and no acute distress Resp: Effort & Inspection: normal respiratory effort and able to speak in complete sentences Cardio: Rate: regular rate Peripheral pulses: Peripheral pulses 2+ throughout GI: Palpation (GI): Soft to palpation Skin: Lesions: no lesions Rashes: no rashes Extrem: Other: Right hip bandages are c/d/i. Able o dorsi/plantar flex. NVI. Procedures Date of Service Date of Service: 12/17/22 Progress Note: A&P Assessment and plan (1) Fracture, intertrochanteric, right femur: Status: Acute Plan Continue pain mgmnt Lovenox for dvt ppx PT for right hip IM Nail - WBAT Dispo planning-Pending PT eval, pain mgmnt Time Spent With Patient Time: Total time managing care of this patient today ____ minutes. Quality Stroke Does the patient have a stroke diagnosis?: No VTE Prior VTE?: No VTE Risk Level:: Medical - moderate - high VTE Device Contraindication: Treatment Not Indicated VTE Drug Contraindication: Treatment Not Indicated
--- NOTE | 2022-12-17 11:20 | MHC.CM.PN ---
IMM 12/17/22 Patient is discharged today to [facility]. 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 DC info has been sent to the facility.
--- NOTE | 2022-12-17 12:36 | P.CDIM_ITS ---
PROVIDER RESPONSE TEXT: To clarify, the appropriate diagnosis supported by the clinical indicators: Acute blood loss anemia QUERY TEXT: PHYSICIAN'S DOCUMENTATION REQUEST Date of Query: 12/16/2022 12:33 PM EDT Patient Name: Vanessa Hightower Admit Date: 12/15/2022 Dear Sunny Julian, A review of the medical record indicates additional documentation may be needed. Please review below and update the documentation accordingly. Clinical Indicators: H&H on 12/14/22: 12.7/40.2 Underwent IMN R intertrochanteric fracture on 12/15/22, EBL 100 ml H&H on 12/16/22: 9.8/31.6 Based on the above, could you clarify which of the following is the most likely type of anemia you ar e evaluating, treating, and/or monitoring? Acute blood loss anemia Other Anemia, please specify (specify type) Other (explain)Clinically unable to determine (explain)Thank you, Bruna Garnica RN Use of terms such as suspected, likely, concern for, or probable (associated with a specific diagnosi s that is being evaluated, monitored, or treated as if it exists) are acceptable and can be coded in the inpatient se tting, when documented at the time of discharge. Please use your independent medical judgment in providing your response. THIS QUERY IS PART OF THE PERMANENT MEDICAL RECORD
[2022-12-17] MEDS: Acetaminophen 325 MG TABLET 650 MG PO (14:08)
[2022-12-17] MEDS: Enoxaparin Sodium 40 MG/0.4 ML SYRINGE SUBCUT (14:08)
== END 2022-12-17 15:37 | disposition skilled nursing facility (03) | DRG 481 ==
LOC: HO.ED 21:20 → HO.EDOVER 22:00 → HO.S3 12-15 01:12
PROVIDERS: Orthopaedic Surgery; Physician Assistant; Admitting Provider Student in an Organized Health Care Education/Training Program; Emergency Provider Internal Medicine; PCP Nurse Practitioner Family; Visit Provider Student in an Organized Health Care Education/Training Program
DX: S72.141A Displaced intertrochanteric fracture of right femur, initial encounter for closed fracture (principal); D62 Acute posthemorrhagic anemia; K21.9 Gastro-esophageal reflux disease without esophagitis; Z95.2 Presence of prosthetic heart valve; W01.0XXA Fall on same level from slipping, tripping and stumbling without subsequent striking against object, initial encounter; E78.2 Mixed hyperlipidemia; E03.9 Hypothyroidism, unspecified; Z87.891 Personal history of nicotine dependence; Z79.82 Long term (current) use of aspirin; Z79.890 Hormone replacement therapy; Z79.899 Other long term (current) drug therapy
CPT/HCPCS: 36415; 71045; 73502; 80048; 80053; 85014; 85018; 85025; 85027; 85610; 93005; 97161; 99285; C1713; J0690; J1100; J1650; J2270; J2405; J3010

== ENCOUNTER → 2022-12-14 21:55 | Outpatient (BNV) | payer MEDICARE, SELFPAY | PROVIDERS: Admitting Provider Student in an Organized Health Care Education/Training Program; Emergency Provider Internal Medicine; PCP Nurse Practitioner Family; Visit Provider Student in an Organized Health Care Education/Training Program | DX: S72.141A Displaced intertrochanteric fracture of right femur, initial encounter for closed fracture (principal); W19.XXXA Unspecified fall, initial encounter | CPT/HCPCS: 99222; 99232; 99239 ==

== ENCOUNTER → 2022-12-14 21:55 | Outpatient (BNV) | payer MEDICARE, SELFPAY | PROVIDERS: Admitting Provider Student in an Organized Health Care Education/Training Program; Emergency Provider Internal Medicine; PCP Nurse Practitioner Family; Visit Provider Physician Assistant | DX: S72.141A Displaced intertrochanteric fracture of right femur, initial encounter for closed fracture (principal) | CPT/HCPCS: 27245; 99024; 99212; 99231 ==

== ENCOUNTER 2023-01-02 11:21 | Outpatient (AMB) | payer MEDICARE, SELFPAY ==
--- NOTE | 2023-01-02 11:43 | A.OFFVIS_ITS ---
Intake Intake Visit Reasons: PO- RT hip IMN 12/15/22 Intake Note: Vanessa an 87 year old female presents today for a post operative right hip IMN, DOS 12/15/22. Patient reports she is doing well, denies pain. Allergies Sulfa (Sulfonamide Antibiotics) [SULFA (SULFONAMIDE ANTIBIOTICS)] Allergy (Unknown, Verified 01/02/23 11:47) RASH acetaminophen [From Percocet] Adverse Reaction (Verified 01/02/23 11:47) Headache oxycodone [From Percocet] Adverse Reaction (Verified 01/02/23 11:47) Headache HPI PO- RT hip IMN 12/15/22 HPI Details 87-year-old female who returns to the [facility] today in a wheelchair for post-op right hip IMN, 12/15/22. She states she has no pain and is doing well overall. She has no concerns today. [facility] Medical History (Updated 12/25/22 @ 00:02 by Tamia Kamara) Hypothyroidism Melanoma Hyperlipidemia HTN (hypertension) Severe aortic stenosis Surgical History H/O mastectomy History of partial colectomy Status post aortic valve replacement Family History Father No problems noted. Mother No problems noted. Social History Household Members: Spouse and Family Housing: House Do you presently have visiting nurse or other home services: No Alcohol intake: former Patient Tobacco Use Status: Former Tobacco user Quit Date: 1975 Tobacco use type: Cigarette Cigarette Packs Per Day: 1 Second Hand Smoke Exposure: No service: No Current occupational status: retired Review of Systems Const All systems reviewed & are unremarkable except as noted in HPI and below Physical Exam Extrem Other: Right hip: Incision clean, dry and intact. No erythema. No pain with hip ROM. Mild discomfort with hip flexion. Calf supple, nontender. NVI. Results Reviewed Results Reviewed: Xrays were obtained in the office today and personally reviewed by me of the right hip show intact IMN with interval healing. Assessment & Plan Assessment & Plan (1) Fracture, intertrochanteric, right femur: Code(s): S72.141A - Displaced intertrochanteric fracture of right femur, initial encounter for closed fracture Plan [place] removed, steri strips applied. She will begin to transition to Outpatient PT to continue working on Gait training, ROM and quad strength. No driving for another 4 weeks. She will require ppx abx for dental procedures. She will f/u in 4 weeks, sooner if needed. Orders: Orders XR knee RT 2V 01/02/23 M25.569 - Pain in unspecified knee XR pelvis 1-2V 01/02/23 M25.559 - Pain in unspecified hip Patient Instructions: Scribed for Elvis Al PA-C, by Pedro Alonso biomedical equipment technician, on 01/02/2023 at 11:15 AM EST. Elvis Akhtar PA-C, have personally reviewed and agree with the information entered by the scribe. Coding Level of Care Code Global (38496) Diagnoses Fracture, intertrochanteric, right femur S72.141A
== END 2023-01-02 12:14 | disposition home or self-care (01) ==
PROVIDERS: PCP Nurse Practitioner Family; Visit Provider Physician Assistant
DX: S72.141A Displaced intertrochanteric fracture of right femur, initial encounter for closed fracture (principal)
CPT/HCPCS: 99024

== ENCOUNTER 2023-01-02 16:34 | Outpatient (REF) | payer MEDICARE, SELFPAY ==
--- NOTE | ~2023-01-02 | XR_ITS ---
EXAMINATION: XR PELVIS XR KNEE, RIGHT CLINICAL INFORMATION: Pain of unspecified knee. Pain in unspecified hip. COMPARISON: Right hip x-rays 12/14/2022. TECHNIQUE: 2 AP views of the pelvis. AP and 2 lateral views of the right knee. FINDINGS: PELVIS: Intramedullary miguel and fixation screw traverse previously identified right intertrochanteric femoral fracture. Bones are diffusely demineralized. Vascular calcifications. Redemonstration of mild cortical irregularity of the left lesser trochanter of uncertain significance. Moderate degenerative changes in bilateral hips. Degenerative changes in the imaged lower lumbar spine. Degenerative changes in the bilateral sacroiliac joints. RIGHT KNEE: The bones are diffusely demineralized. Distal portion of femoral intramedullary miguel is seen in the mid femur and appears intact. Small joint effusion at the knee. Advanced degenerative changes on limited views of the knee with joint space narrowing and hypertrophic change. Dedicated views centered on the knee should be obtained if there is concern for pathology at this level. XR/XR pelvis 1-2V IMPRESSION: 1. Status post internal fixation of right intertrochanteric femoral fracture. Hardware appears intact. Distraction of fragments has improved. 2. Advanced degenerative changes on limited views of the knee. Dedicated views centered on the knee should be obtained if there is concern for pathology at this level.
--- NOTE | ~2023-01-02 | XR_ITS ---
EXAMINATION: XR PELVIS XR KNEE, RIGHT CLINICAL INFORMATION: Pain of unspecified knee. Pain in unspecified hip. COMPARISON: Right hip x-rays 12/14/2022. TECHNIQUE: 2 AP views of the pelvis. AP and 2 lateral views of the right knee. FINDINGS: PELVIS: Intramedullary miguel and fixation screw traverse previously identified right intertrochanteric femoral fracture. Bones are diffusely demineralized. Vascular calcifications. Redemonstration of mild cortical irregularity of the left lesser trochanter of uncertain significance. Moderate degenerative changes in bilateral hips. Degenerative changes in the imaged lower lumbar spine. Degenerative changes in the bilateral sacroiliac joints. RIGHT KNEE: The bones are diffusely demineralized. Distal portion of femoral intramedullary miguel is seen in the mid femur and appears intact. Small joint effusion at the knee. Advanced degenerative changes on limited views of the knee with joint space narrowing and hypertrophic change. Dedicated views centered on the knee should be obtained if there is concern for pathology at this level. XR/XR knee RT 2V IMPRESSION: 1. Status post internal fixation of right intertrochanteric femoral fracture. Hardware appears intact. Distraction of fragments has improved. 2. Advanced degenerative changes on limited views of the knee. Dedicated views centered on the knee should be obtained if there is concern for pathology at this level.
== END 2023-01-02 16:35 | disposition home or self-care (01) ==
LOC: HO.HOSX 16:34
PROVIDERS: Visit Provider Physician Assistant
DX: S72.141D Displaced intertrochanteric fracture of right femur, subsequent encounter for closed fracture with routine healing (principal); M25.561 Pain in right knee
CPT/HCPCS: 72170; 73560; 99212

== ENCOUNTER 2023-02-06 09:02 | Outpatient (REF) | payer MEDICARE, SELFPAY ==
--- NOTE | ~2023-02-06 | XR_ITS ---
EXAMINATION: XR HIP, RIGHT CLINICAL INFORMATION: Pain. COMPARISON: Radiographs dated 01/02/2023. TECHNIQUE: AP and frog-leg lateral views of the right hip are submitted, together with a frontal view of the pelvis. FINDINGS: There is bony demineralization. An intramedullary miguel, femoral neck compression screw and fixator screws are applied to the proximal right femur. There is stable alignment of intertrochanteric fracture lines. No hardware failure or loosening is seen. The left acetabular joint space is well-maintained. The bilateral sacroiliac joints are symmetric and well-maintained. There is old osteitis pubis. There are pelvic phleboliths. No foreign body is seen. There are atherosclerotic calcifications. XR/XR hip RT w PEL1V IMPRESSION: A fracture is redemonstrated of the intertrochanteric region of the proximal right femur, in stable alignment. No new callus formation is seen. No hardware failure or loosening is noted.
== END 2023-02-06 09:03 | disposition home or self-care (01) ==
LOC: HO.HOSX 09:02
PROVIDERS: Visit Provider Physician Assistant
DX: S72.144D Nondisplaced intertrochanteric fracture of right femur, subsequent encounter for closed fracture with routine healing (principal)
CPT/HCPCS: 73502

== ENCOUNTER 2023-02-06 14:52 | Outpatient (AMB) | payer MEDICARE, SELFPAY ==
--- NOTE | 2023-02-06 15:12 | A.OFFVIS_ITS ---
Intake Intake Visit Reasons: PO-RT hip IMN 12/15/22 w xrays Intake Note: Vanessa an 87 year old female presents today for a post operative right hip IMN, DOS 12/15/22. Xrays updated in office. Patient reports she is doing well, states good and bad days. Allergies Sulfa (Sulfonamide Antibiotics) [SULFA (SULFONAMIDE ANTIBIOTICS)] Allergy (Unknown, Verified 01/02/23 11:47) RASH acetaminophen [From Percocet] Adverse Reaction (Verified 01/02/23 11:47) Headache oxycodone [From Percocet] Adverse Reaction (Verified 01/02/23 11:47) Headache HPI PO-RT hip IMN 12/15/22 w xrays HPI Details 87-year-old female who returns to the [facility] today for post-op right hip IMN, 12/15/22. She states she has occasional pain in her hip but is doing well overall. She has no other concerns today. [facility] Medical History (Updated 02/07/23 @ 12:49 by Elvis Al PA-C) Hypothyroidism Melanoma Hyperlipidemia HTN (hypertension) Severe aortic stenosis Surgical History H/O mastectomy History of partial colectomy Status post aortic valve replacement Family History Father No problems noted. Mother No problems noted. Social History Household Members: Spouse and Family Housing: House Do you presently have visiting nurse or other home services: No Alcohol intake: former Patient Tobacco Use Status: Former Tobacco user Quit Date: 1975 Tobacco use type: Cigarette Cigarette Packs Per Day: 1 Second Hand Smoke Exposure: No service: No Current occupational status: retired Review of Systems Const All systems reviewed & are unremarkable except as noted in HPI and below Physical Exam Extrem Other: Right hip: Incision clean well healed. No erythema. No pain with hip ROM. Mild discomfort with hip flexion. Calf supple, nontender. NVI. Results Reviewed Results Reviewed: Xrays were obtained in the office today and personally reviewed by me of the right hip show intact IMN with interval healing. Assessment & Plan Assessment & Plan (1) Fracture, intertrochanteric, right femur: Code(s): S72.141A - Displaced intertrochanteric fracture of right femur, initial encounter for closed fracture Qualifiers: Encounter type: subsequent encounter Fracture type: closed Fracture alignment: nondisplaced Fracture healing: with routine healing Qualified Code(s): S72.144D - Nondisplaced intertrochanteric fracture of right femur, subsequent encounter for closed fracture with routine healing Plan She is going to continue working with physical therapy. I would like to see her back in 6 weeks with new x-rays, sooner if needed. Orders: Orders XR hip RT w PEL1V 02/06/23 M25.559 - Pain in unspecified hip UA CC w/rflx Micro + Cult 02/06/23 R35.0 - Frequency of micturition Patient Instructions: Scribed for Elvis Al PA-C, by Pedro Alonso medical assistant dermatology, on 02/06/2023 at 2:45 PM EST. I, Elvis Al PA-C, have personally reviewed and agree with the information entered by the scribe. Coding Level of Care Code Global (16472) Diagnoses Closed nondisplaced intertrochanteric fracture of right femur with routine healing, subsequent encounter S72.144D Encounter type: subsequent encounter Fracture type: closed Fracture alignment: nondisplaced Fracture healing: with routine healing
== END 2023-02-06 15:49 | disposition home or self-care (01) ==
PROVIDERS: PCP Nurse Practitioner Family; Visit Provider Physician Assistant
DX: S72.144D Nondisplaced intertrochanteric fracture of right femur, subsequent encounter for closed fracture with routine healing (principal)
CPT/HCPCS: 99024

== ENCOUNTER 2023-02-13 11:24 | Emergency (ER) | payer MEDICARE, SELFPAY ==
--- NOTE | ~2023-02-13 | US_ITS ---
EXAMINATION: US VENOUS ULTRASOUND WITH DOPPLER LOWER EXTREMITY, RIGHT CLINICAL INFORMATION: Pain and swelling COMPARISON: None available. TECHNIQUE: Ultrasound of the deep veins is performed from the hip to the calf with compression sonography and color and pulse Doppler assessment. Spectral analysis with color-flow imaging is performed. FINDINGS: There is normal venous compression and respiratory variation and augmented flow. The visualized common femoral vein, superficial femoral vein, profunda femoral vein, popliteal vein, and the trifurcation region shows no evidence of deep venous thrombosis. The peroneal vein is not visualized. There are prominent varicose vein with thrombus suggestive of thrombophlebitis. There is no significant popliteal fossa cyst. If the patient's symptoms persist, followup ultrasound in 5 days 7 days might be of value to exclude proximal propagation from a non-visualized calf vein. US/US venous duplex LE RT IMPRESSION: No DVT demonstrated in the right lower extremity. Superficial thrombophlebitis in right proximal calf.
[2023-02-13 11:29] VITALS: BP 150/57; PULSE 78; RESP 18; TEMP 36.1; O2SAT 95; BMI 29.0
--- NOTE | 2023-02-13 11:29 | ED.GENADULT ---
HPI - General Adult General Chief complaint: Extremity Injury, Lower Stated complaint: Lump on R calf Time Seen by Provider: 02/13/23 11:43 Related Data Home Medications Medication Instructions Recorded Confirmed aspirin 81 mg tablet,delayed 81 mg PO DAILY 08/15/20 12/15/22 release (Adult Low Dose Aspirin) atorvastatin 20 mg tablet 20 mg PO DAILY 08/15/20 12/15/22 levothyroxine 125 mcg tablet 125 mcg PO DAILY 08/15/20 12/15/22 omeprazole 20 mg capsule,delayed 20 mg PO DAILY 08/15/20 12/15/22 release cholecalciferol (vitamin D3) 25 25 mcg PO DAILY 09/06/20 12/15/22 mcg (1,000 unit) capsule Previous Rx's Medication Instructions Recorded amlodipine 5 mg tablet 5 mg PO DAILY #90 tabs 01/14/22 losartan 100 mg tablet 100 mg PO DAILY #90 tabs 10/07/22 metoprolol succinate 25 mg 25 mg PO DAILY #90 tabs 12/12/22 tablet,extended release 24 hr enoxaparin 40 mg/0.4 mL 40 mg (0.4 mL) subcut Q24H 28 days 12/17/22 subcutaneous syringe #11.2 mL oxycodone 5 mg tablet 5 mg PO Q6H PRN pain (scale score 12/17/22 7-10) #14 tabs polyethylene glycol 3350 17 17 g PO DAILY 10 days #170 grams 12/17/22 gram/dose oral powder (Miralax) Allergies Allergy/AdvReac Type Severity Reaction Status Date / Time Sulfa (Sulfonamide Allergy Unknown RASH Verified 01/02/23 11:47 Antibiotics) [SULFA (SULFONAMIDE ANTIBIOTICS)] acetaminophen [From Percocet] AdvReac Headache Verified 01/02/23 11:47 oxycodone [From Percocet] AdvReac Headache Verified 01/02/23 11:47 PMFSH Past Medical History Medical History Hip fracture Hypothyroidism Melanoma Hyperlipidemia HTN (hypertension) Severe aortic stenosis Surgical History H/O mastectomy History of partial colectomy Status post aortic valve replacement Family History Family History Father No problems noted. Mother No problems noted. Social History Household Members: Spouse and Family Housing: House Do you presently have visiting nurse or other home services: No Alcohol intake: former Patient Tobacco Use Status: Former Tobacco user Quit Date: 1975 Tobacco use type: Cigarette Cigarette Packs Per Day: 1 Smoked in Last 30 Days: No Second Hand Smoke Exposure: No Use of substances other than those prescribed or required for medical reasons: No Advance Directives: Yes Advance Directives Information Provided: No Advance Directives on File: No service: No Current occupational status: retired Physical Exam ED Vital Signs: Vital Signs - 24 hr 02/13/23 11:29 02/13/23 11:48 Temperature 96.9 F 98.3 F Pulse Rate 78 80 Respiratory Rate 18 20 Blood Pressure 150/57 H 112/40 L Pulse Oximetry 95 92 Oxygen Delivery Method Room Air Room Air BMI result Body Mass Index 29.0 Course Course Course Narrative: This is a rapid medical exam: Additional HPI, ROS, PE not included below will be deferred to primary provider. Patient is an 87-year-old female presenting to the emergency department with complaint of right calf pain and swelling since this morning. Daughter reports patient had surgery to her femur around 7 weeks ago, was on lovenox for 2 weeks following surgery, but is not on lovenox now. Patient denies any injury to the area. Plan: basic labs, U/S Reevaluation(s) Reevaluation #1: 87-year-old female with superficial thrombophlebitis of a varicose vein in the right calf, the case discussed with Dr. Mckenzie who I recommended no anticoagulation, warm compression, NSAIDs, and follow up at his office this week. Time: 14:46 Medical Decision Making Differential Diagnosis Differential Diagnoses: The differential diagnosis associated with the presentation includes ( DVT, superficial thrombophlebitis, infection, severe anemia, electrolyte abnormality.) Admission/Observation Consideration of admission/observation: Escalation of care including admission/observation considered Consult Healthcare Provider Management of the patient was discussed with: [employer]er ( Dr. Mckenzie) Lab Data MDM Lab Attestation statement: I reviewed the patient's lab results. 02/13/23 11:59 02/13/23 11:59 Labs: Lab Results 02/13/23 Range/Units 11:59 WBC 9.9 (4.8-10.8) X10*3/uL RBC 3.99 L D (4.20-5.50) X10*6/uL Hgb 11.9 L D (12.0-16.0) g/dl Hct 38.0 D (37.0-47.0) % MCV 95.2 (80.0-98.0) fL MCH 29.8 (27.0-33.0) pg MCHC 31.3 (31.0-35.0) g/dl RDW 13.9 (11.0-16.0) % Plt Count 246 D (160-400) X10*3/uL MPV 10.3 (9.4-12.3) fL Immature Gran % (Auto) 0.3 (0.0-0.4) % Neut % (Auto) 52.0 (45-73) % Lymph % (Auto) 31.7 (20-40) % [place] % (Auto) 10.4 (2-11) % Eos % (Auto) 4.2 H (0-4) % Baso % (Auto) 1.4 (0-2) % Lymph # (Auto) 3.1 (1.2-4.9) X10*3/uL [place] # (Auto) 1.0 (0.1-1.2) X10*3/uL Eos # (Auto) 0.4 (0.0-0.4) X10*3/uL Baso # (Auto) 0.1 (0.0-0.2) X10*3/uL Abs Immat Gran (auto) 0.03 (0.00-0.03) X10*3/uL Absolute Neuts (auto) 5.1 (2.0-8.3) x10*3/uL Absolute Nucleated RBC 0.000 (0.0-0.012) X10*3/uL Nucleated RBC % (auto) 0.0 (0.0-0.2) /100WBC PT 12.3 (11.1-13.3) SEC INR 1.0 (0.9-1.1) APTT 31.0 (26.0-36.4) SEC Sodium 140 (135-145) mmol/L Potassium 4.0 (3.3-5.1) mmol/L Chloride 105 (96-108) mmol/L Carbon Dioxide 26 (22-29) mmol/L Anion Gap 13 (12-20) BUN 16 (9-16) mg/dL Creatinine 1.38 (0.5-1.4) mg/dL Estim Creat Clear Calc 32.0 Estimated GFR 36 Random Glucose 128 H (60-115) mg/dL Calcium 10.0 D (8.4-10.2) mg/dL Chronic Conditions Patient?s care impacted by: Other ( varicose vein) Discharge Plan Discharge Clinical Impression: Superficial thrombophlebitis Qualifiers: Superficial thrombophlebitis-Involved body area: lower extremity Laterality: right Qualified Code(s): I80.01 - Phlebitis and thrombophlebitis of superficial vessels of right lower extremity Varicose vein of leg Qualifiers: Laterality: right Patient Disposition: Home, Self-Care Instructions: Superficial Thrombophlebitis (ED) Additional Instructions: apply warm compression on the tender area. take 200 mg tablet of ibuprofen ([id number]) every 12 hours if needed for pain. Prescriptions: No Action amlodipine 5 mg tablet 5 mg PO DAILY Qty: 90 2RF losartan 100 mg tablet 100 mg PO DAILY Qty: 90 3RF metoprolol succinate 25 mg tablet extended release 24 hr 25 mg PO DAILY Qty: 90 3RF enoxaparin 40 mg/0.4 mL Syringe 40 mg subcut Q24H 28 Days Qty: 11.2 0RF oxycodone 5 mg tablet 5 mg PO Q6H PRN (Reason: pain (scale score 7-10)) Qty: 14 0RF Rx Instructions: Partial Fill upon patient request. polyethylene glycol 3350 [Miralax] 17 gram/dose powder 17 g PO DAILY 10 Days Qty: 170 0RF cholecalciferol (vitamin D3) 25 mcg (1,000 unit) capsule 25 mcg PO DAILY omeprazole 20 mg capsule,delayed release(DR/EC) 20 mg PO DAILY levothyroxine 125 mcg tablet 125 mcg PO DAILY atorvastatin 20 mg tablet 20 mg PO DAILY aspirin [Adult Low Dose Aspirin] 81 mg tablet,delayed release (DR/EC) 81 mg PO DAILY Referrals: Valerio Mckenzie MD [Physician] -
[2023-02-13 11:48] VITALS: BP 112/40; PULSE 80; RESP 20; TEMP 36.8; O2SAT 92
--- NOTE | 2023-02-13 11:54 | PC.NURSE ---
patient a&ox3, RLE palpable lump that the patient states is painful only with palp, tech to draw labs, US ordered-pt awaiting radiology, call marshall within reach, will continue to monitor
--- NOTE | 2023-02-13 11:57 | ED.LOWEXIN ---
HPI - Extremity Injury (Lower) General Chief Complaint: Extremity Injury, Lower Stated Complaint: Lump on R calf Time Seen by Provider: 02/13/23 11:43 Source: patient and family ( Daughter) Mode of arrival: ambulatory Limitations: no limitations History of Present Illness HPI Narrative: 87-year-old female s/p right hip replacement 4 weeks ago woke up this morning with a painful lump on her right calf. No fever, no chills, no SOB, no CP. Related Data Home Medications Medication Instructions Recorded Confirmed aspirin 81 mg tablet,delayed 81 mg PO DAILY 08/15/20 12/15/22 release (Adult Low Dose Aspirin) atorvastatin 20 mg tablet 20 mg PO DAILY 08/15/20 12/15/22 levothyroxine 125 mcg tablet 125 mcg PO DAILY 08/15/20 12/15/22 omeprazole 20 mg capsule,delayed 20 mg PO DAILY 08/15/20 12/15/22 release cholecalciferol (vitamin D3) 25 25 mcg PO DAILY 09/06/20 12/15/22 mcg (1,000 unit) capsule Previous Rx's Medication Instructions Recorded amlodipine 5 mg tablet 5 mg PO DAILY #90 tabs 01/14/22 losartan 100 mg tablet 100 mg PO DAILY #90 tabs 10/07/22 metoprolol succinate 25 mg 25 mg PO DAILY #90 tabs 12/12/22 tablet,extended release 24 hr enoxaparin 40 mg/0.4 mL 40 mg (0.4 mL) subcut Q24H 28 days 12/17/22 subcutaneous syringe #11.2 mL oxycodone 5 mg tablet 5 mg PO Q6H PRN pain (scale score 12/17/22 7-10) #14 tabs polyethylene glycol 3350 17 17 g PO DAILY 10 days #170 grams 12/17/22 gram/dose oral powder (Miralax) Allergies Allergy/AdvReac Type Severity Reaction Status Date / Time Sulfa (Sulfonamide Allergy Unknown RASH Verified 01/02/23 11:47 Antibiotics) [SULFA (SULFONAMIDE ANTIBIOTICS)] acetaminophen [From Percocet] AdvReac Headache Verified 01/02/23 11:47 oxycodone [From Percocet] AdvReac Headache Verified 01/02/23 11:47 Review of Systems Review of Systems: All other systems are reviewed and are negative Constitutional: Reports as per HPI and Reports no additional constitutional complaints Eyes: Reports as per HPI and Reports no additional eye complaints Reports system reviewed and no additional complaints, except as documented Cardiovascular: Reports as per HPI and Reports no additional cardiovascular complaints Respiratory: Reports as per HPI and Reports no additional respiratory complaints Gastrointestinal: Reports as per HPI and Reports no additional gastrointestinal complaints Genitourinary: Reports no additional female genitourinary complaints Musculoskeletal: Reports no additional musculoskeletal complaints Skin/Breast: Reports system reviewed and no additional complaints, except as docu Psychiatric: Reports no additional psychiatric complaints Endocrine: Reports no additional endocrine complaints Hematologic/Lymphatic: Reports no additional hematologic/lymphatic complaints Allergic/Immunologic: Reports no additional allergic/immunologic complaints Reports system reviewed and no additional complaints, except as documented and Reports Abnormal speech present [facility] Past Medical History Medical History Hip fracture Hypothyroidism Melanoma Hyperlipidemia HTN (hypertension) Severe aortic stenosis Surgical History H/O mastectomy History of partial colectomy Status post aortic valve replacement Family History Family History Father No problems noted. Mother No problems noted. Social History Household Members: Spouse and Family Housing: House Do you presently have visiting nurse or other home services: No Alcohol intake: former Patient Tobacco Use Status: Former Tobacco user Quit Date: 1975 Tobacco use type: Cigarette Cigarette Packs Per Day: 1 Smoked in Last 30 Days: No Second Hand Smoke Exposure: No Use of substances other than those prescribed or required for medical reasons: No Advance Directives: Yes Advance Directives Information Provided: No Advance Directives on File: No service: No Current occupational status: retired Physical Exam Vital Signs: Vital Signs: Last Vital Signs Temp 98.3 F 02/13/23 11:48 Pulse 80 02/13/23 11:48 Resp 20 02/13/23 11:48 BP 112/40 L 02/13/23 11:48 Pulse Ox 92 02/13/23 11:48 O2 Del Method Room Air 02/13/23 11:48 BMI result Body Mass Index 29.0 Vital signs have been reviewed and appear to be correct. Blood pressure elevated. Heart rate normal. Respiratory rate normal. Temperature normal. Oxygen saturation normal. Appearance: Alert. Oriented X3. No acute distress. Head: Normal external exam. Normocephalic. Atraumatic. No Gil signs noted. No raccoon eyes noted Eyes: PERRLA. EOMI. Conjunctiva and sclera normal. Eyelids normal. ENT: TM's Normal. Pharynx normal. Uvula midline. Moist mucous membranes. No trismus noted. No drooling noted. No muffled voice noted. Neck: Normal inspection. Neck supple. FROM. No adenopathy. Thyroid Normal. No meningeal signs. No neck mass noted. CVS: Normal heart rate and rhythm. Heart sound normal. No murmurs noted. Pulses normal throughout. Respiratory: No respiratory distress. Painless inspiration. Breath sounds normal. No wheezes/rales/rhonchi noted. Chest nontender. No accessory muscle usage noted or decreased air movement noted. Abdomen: Soft and nontender. Bowel sounds normal in all 4 quadrants. No distention noted. No organomegaly noted. No visible injury noted. Back: No CVA tenderness. Full range of motion noted. Skin: Skin warm and dry. Normal skin color. Normal skin turgor. No rashes/lesions/lacerations noted. Extremities: 2 x 3 cm area of tenderness with cystic consistency, no redness, no hotness. Neuro: Oriented X 3. Cranial nerve exam: II-XII are grossly intact No motor deficit. No sensory deficit. Reflexes normal. Course Course Course Narrative: 87-year-old female came in with right superficial thrombophlebitis of a varicose vein, the case discussed with Dr. Mckenzie who recommended no anticoagulation and he will follow as an outpatient. Medical Decision Making Differential Diagnosis Differential Diagnoses: The differential diagnosis associated with the presentation includes (DVT, superficial thrombophlebitis, pulled muscle.) Admission/Observation Consideration of admission/observation: Escalation of care including admission/observation considered Consult Healthcare Provider Management of the patient was discussed with: Director Internal Control (Dr. Mckenzie) Lab Data [facility] Lab Attestation statement: I reviewed the patient's lab results. 02/13/23 11:59 02/13/23 11:59 Labs: Lab Results 02/13/23 Range/Units 11:59 WBC 9.9 (4.8-10.8) X10*3/uL RBC 3.99 L D (4.20-5.50) X10*6/uL Hgb 11.9 L D (12.0-16.0) g/dl Hct 38.0 D (37.0-47.0) % MCV 95.2 (80.0-98.0) fL MCH 29.8 (27.0-33.0) pg MCHC 31.3 (31.0-35.0) g/dl RDW 13.9 (11.0-16.0) % Plt Count 246 D (160-400) X10*3/uL MPV 10.3 (9.4-12.3) fL Immature Gran % (Auto) 0.3 (0.0-0.4) % Neut % (Auto) 52.0 (45-73) % Lymph % (Auto) 31.7 (20-40) % [place] % (Auto) 10.4 (2-11) % Eos % (Auto) 4.2 H (0-4) % Baso % (Auto) 1.4 (0-2) % Lymph # (Auto) 3.1 (1.2-4.9) X10*3/uL [place] # (Auto) 1.0 (0.1-1.2) X10*3/uL Eos # (Auto) 0.4 (0.0-0.4) X10*3/uL Baso # (Auto) 0.1 (0.0-0.2) X10*3/uL Abs Immat Gran (auto) 0.03 (0.00-0.03) X10*3/uL Absolute Neuts (auto) 5.1 (2.0-8.3) x10*3/uL Absolute Nucleated RBC 0.000 (0.0-0.012) X10*3/uL Nucleated RBC % (auto) 0.0 (0.0-0.2) /100WBC PT 12.3 (11.1-13.3) SEC INR 1.0 (0.9-1.1) APTT 31.0 (26.0-36.4) SEC Sodium 140 (135-145) mmol/L Potassium 4.0 (3.3-5.1) mmol/L Chloride 105 (96-108) mmol/L Carbon Dioxide 26 (22-29) mmol/L Anion Gap 13 (12-20) BUN 16 (9-16) mg/dL Creatinine 1.38 (0.5-1.4) mg/dL Estim Creat Clear Calc 32.0 Estimated GFR 36 Random Glucose 128 H (60-115) mg/dL Calcium 10.0 D (8.4-10.2) mg/dL Independent Interpretation I performed an independent interpretation of an: Ultrasound (No DVT demonstrated in the right lower extremity. Superficial thrombophlebitis in right proximal calf. ) Radiology Impression Discussion of test interpretation with radiology: I have reviewed the radiologist's reading. Discharge Plan Discharge Clinical Impression: Superficial thrombophlebitis, Varicose vein of leg Patient Disposition: Home, Self-Care Instructions: Superficial Thrombophlebitis (ED) Additional Instructions: apply warm compression on the tender area. take 200 mg tablet of ibuprofen ([id number]) every 12 hours if needed for pain. Prescriptions: No Action amlodipine 5 mg tablet 5 mg PO DAILY Qty: 90 2RF losartan 100 mg tablet 100 mg PO DAILY Qty: 90 3RF metoprolol succinate 25 mg tablet extended release 24 hr 25 mg PO DAILY Qty: 90 3RF enoxaparin 40 mg/0.4 mL Syringe 40 mg subcut Q24H 28 Days Qty: 11.2 0RF oxycodone 5 mg tablet 5 mg PO Q6H PRN (Reason: pain (scale score 7-10)) Qty: 14 0RF Rx Instructions: Partial Fill upon patient request. polyethylene glycol 3350 [Miralax] 17 gram/dose powder 17 g PO DAILY 10 Days Qty: 170 0RF cholecalciferol (vitamin D3) 25 mcg (1,000 unit) capsule 25 mcg PO DAILY omeprazole 20 mg capsule,delayed release(DR/EC) 20 mg PO DAILY levothyroxine 125 mcg tablet 125 mcg PO DAILY atorvastatin 20 mg tablet 20 mg PO DAILY aspirin [Adult Low Dose Aspirin] 81 mg tablet,delayed release (DR/EC) 81 mg PO DAILY Referrals: Valerio Mckenzie MD [Physician] - Interventions: ED Discharge Assessment Last Done: 02/13/23 14:56 Discharge Date/Time: 02/13/23 14:57
[2023-02-13 12:04] LABS: MANUAL DIFF FLAG NO
[2023-02-13 12:06] LABS: Basophils Absolute Auto 0.1 X10*3/uL (0.0-0.2); Basophils Percent Auto 1.4 % (0-2); Eosinophils Absolute Auto 0.4 X10*3/uL (0.0-0.4); Eosinophils Percent Auto 4.2 % (0-4); Hemoglobin 11.9 g/dl (12.0-16.0); Imm Gran Abs Auto 0.03 X10*3/uL (0.00-0.03); Imm Gran Pct Auto 0.3 % (0.0-0.4); Lymphocytes Absolute Auto 3.1 X10*3/uL (1.2-4.9); Lymphocytes Percent Auto 31.7 % (20-40); Mean Corpuscular HGB Conc 31.3 g/dl (31.0-35.0); Mean Corpuscular Hemoglobin 29.8 pg (27.0-33.0); Mean Corpuscular Volume 95.2 fL (80.0-98.0); Mean Platelet Volume 10.3 fL (9.4-12.3); Monocytes Percent Auto 10.4 % (2-11); Neutrophils Absolute Auto 5.1 x10*3/uL (2.0-8.3); Platelet Count 246 X10*3/uL (160-400); Red Blood Count 3.99 X10*6/uL (4.20-5.50); Red Cell Distribution Width 13.9 % (11.0-16.0); White Blood Count 9.9 X10*3/uL (4.8-10.8)
[2023-02-13 12:16] LABS: Prothrombin Time 12.3 SEC (11.1-13.3)
[2023-02-13 12:18] LABS: Anion Gap 13 (12-20); Blood Urea Nitrogen 16 mg/dL (9-16); Carbon Dioxide 26 mmol/L (22-29); Chloride 105 mmol/L (96-108); Estimated Glomerular Filt Rate 36; Glucose Random 128 mg/dL (60-115); Sodium 140 mmol/L (135-145)
== END 2023-02-13 14:57 | disposition home or self-care (01) ==
PROVIDERS: Registered Nurse Emergency; Emergency Provider Emergency Medicine; PCP Nurse Practitioner Family
DX: I80.01 Phlebitis and thrombophlebitis of superficial vessels of right lower extremity (principal); I83.811 Varicose veins of right lower extremity with pain; M79.661 Pain in right lower leg; I10 Essential (primary) hypertension; E78.5 Hyperlipidemia, unspecified; Z95.2 Presence of prosthetic heart valve; Z85.3 Personal history of malignant neoplasm of breast; Z87.891 Personal history of nicotine dependence; Z79.82 Long term (current) use of aspirin; Z79.02 Long term (current) use of antithrombotics/antiplatelets; Z79.899 Other long term (current) drug therapy
CPT/HCPCS: 36415; 80048; 85025; 85610; 85730; 93971; 99284

== ENCOUNTER 2023-03-06 15:10 | Outpatient (AMB) | payer MEDICARE, SELFPAY ==
[2023-03-06 15:12] VITALS: BMI 29.0
--- NOTE | 2023-03-06 15:12 | MHC.OFFVIS ---
Intake Vital Signs 03/06/23 15:12 Height 5 ft 6 in Weight 180 lb BMI 29.0 Intake Visit Reasons: ED referral for superficial thrombosis Intake Note: ED referral for Right LE superficial thrombophlebitis s/p right hip /leg surgery ( miguel placement). Still has a small lump on her calf. Accompanied by: Daughter Allergies Sulfa (Sulfonamide Antibiotics) [SULFA (SULFONAMIDE ANTIBIOTICS)] Allergy (Unknown, Verified 03/06/23 15:20) RASH acetaminophen [From Percocet] Adverse Reaction (Verified 03/06/23 15:20) Headache oxycodone [From Percocet] Adverse Reaction (Verified 03/06/23 15:20) Headache HPI ED referral for superficial thrombosis HPI Details Very pleasant 87-year-old female presents for evaluation regarding right lower extremity superficial thrombophlebitis. She had hip replacement surgery performed on 12/15/2022. Subsequent to that on February 13 she ended up in the emergency room with right lower extremity superficial thrombophlebitis. She has been treating this with nonsteroidal anti-inflammatories and warm compresses. She reports that it has been improving over time. She now presents for follow-up evaluation. Patient denies any previous venous surgery or injections. Patient denies any history of DVT/ PE. Patient denies any history of phlebitis. Trial of compression includes - [id number] They now present for vascular evaluation regarding their varicose veins. [facility] Medical History Hip fracture Hypothyroidism Melanoma Hyperlipidemia HTN (hypertension) Severe aortic stenosis Surgical History H/O mastectomy History of partial colectomy Status post aortic valve replacement Family History Father No problems noted. Mother No problems noted. Social History Household Members: Spouse and Family Housing: House Do you presently have visiting nurse or other home services: No Alcohol intake: former Patient Tobacco Use Status: Former Tobacco user Quit Date: 1975 Tobacco use type: Cigarette Cigarette Packs Per Day: 1 Second Hand Smoke Exposure: No service: No Current occupational status: retired Review of Systems Const Reports as per HPI ENT Reports no additional complaints Card Denies chest pain, Denies chest pain at rest and Denies chest pain with activity Resp Denies chest congestion and Denies cough GI Reports no additional complaints Musc Details: pain over varicosities, aching of lower extremities, swelling, cramping, heaviness and tiredness, itching Denies abnormal gait Skin/Breast Reports pruritus and Denies wounds Neuro Reports no additional complaints and Denies abnormal gait Psych Denies no additional complaints Physical Exam Vital Signs: BMI result Body Mass Index 29.0 Const General: cooperative, healthy appearing and comfortable Orientation/consciousness: oriented to person, oriented to place and oriented to time Neck Carotids: no bruits Chest Chest palpation & inspection: normal inspection of the chest and normal palpation of entire chest wall Resp Effort & Inspection: normal respiratory effort and able to speak in complete sentences Cardio Rate: regular rate Heart sounds: S1 normal heart sound present and S2 normal heart sound present Peripheral pulses: Peripheral pulses 2+ throughout GI Inspection: Yes normal to inspection Skin Other: +2 edema, large rope-like varicosities greater than 4 mm right calf with evidence of previous superficial thrombophlebitis CEAP Classification C4 - skin color changes Ep - Etiology Primary As - superficial veins P - reflux General skin exam: dry skin Neuro General: oriented to person, oriented to place and oriented to time Extrem Right lower extremity: full ROM, normal capillary refill and edema Left lower extremity: full ROM, normal capillary refill and edema Psych Mental Status: mental status grossly normal Results Reviewed Results Reviewed: 02/13/2023 right lower extremity negative for DVT Assessment & Plan Assessment & Plan (1) Varicose veins of right lower extremity with inflammation: Code(s): I83.11 - Varicose veins of right lower extremity with inflammation Plan: In short, the patient has evidence of venous insufficiency. I have discussed the pathophysiology with the patient. In addition I have provided informational material regarding venous disease to the patient. We have discussed conservative measures including compression, elevation, and exercise. I have also provided a handout regarding appropriate use of compression stockings and where to purchase good compression stockings as well. I have taken the liberty of ordering venous insufficiency testing with the patient. They will follow up with me after testing. The patient had an opportunity to ask questions regarding the treatment plan. All questions were answered. Imaging studies, laboratory studies and physical exam results were discussed and reviewed in detail. No major barriers to understanding were identified. The patient expressed understanding and agreement with the above treatment plan. The patient is aware they should contact our office by phone for worsening of the current condition or the appearance of new symptoms. Thank you for allowing me to participate in the vascular care of this patient. If you have any questions or concerns regarding the treatment for the above condition please do not hesitate to contact me. The office telephone contact is [phone]. This note is constructed using voice recognition software. While every effort has been made to ensure accuracy, junior java developer errors may have been included. Thank you for allowing me to participate in the care of your patient. Yours sincerely, Valerio Mckenzie MD, FACS, R.P.V.I. Orders: Orders US venous duplex LE BI 1 Week I83.11 - Varicose veins of right lower extremity with inflammation Coding Level of Care Code New Pt Level 4 (05469) Diagnoses Varicose veins of right lower extremity with inflammation I83.11
== END 2023-03-06 16:07 | disposition home or self-care (01) ==
PROVIDERS: PCP Nurse Practitioner Family; Visit Provider Surgery Vascular Surgery
DX: I83.11 Varicose veins of right lower extremity with inflammation (principal); I80.01 Phlebitis and thrombophlebitis of superficial vessels of right lower extremity
CPT/HCPCS: 99203

== ENCOUNTER → 2023-03-06 15:10 | Outpatient (BNVA) | payer MEDICARE, SELFPAY | PROVIDERS: PCP Nurse Practitioner Family; Visit Provider Surgery Vascular Surgery | DX: I83.11 Varicose veins of right lower extremity with inflammation (principal) | CPT/HCPCS: 99202 ==

== ENCOUNTER 2023-03-20 09:38 | Outpatient (REF) | payer MEDICARE, SELFPAY | END 2023-03-20 09:39 | disposition home or self-care (01) | LOC: HO.HOSX 09:38 | PROVIDERS: Visit Provider Physician Assistant | DX: S72.001D Fracture of unspecified part of neck of right femur, subsequent encounter for closed fracture with routine healing (principal); Z98.890 Other specified postprocedural states; X58.XXXD Exposure to other specified factors, subsequent encounter | CPT/HCPCS: 73552; 99212 ==

== ENCOUNTER 2023-03-20 14:48 | Outpatient (AMB) | payer MEDICARE, SELFPAY ==
--- NOTE | 2023-03-20 14:59 | A.OFFVIS_ITS ---
Intake Vital Signs 03/20/23 15:03 Height 5 ft 6 in Weight 180 lb BMI 29.0 Intake Visit Reasons: PO-RT hip IMN 12/15/22 w xrays Intake Note: Vanessa an 87 year old female presents today for a post operative right hip IMN, DOS 12/15/22. Xrays updated in office. Patient reports intermittent pain and with laying down she will feel sharp pain in her groin area that will last for about 10-15 minutes. Allergies Sulfa (Sulfonamide Antibiotics) [SULFA (SULFONAMIDE ANTIBIOTICS)] Allergy (Unknown, Verified 03/20/23 15:04) RASH acetaminophen [From Percocet] Adverse Reaction (Verified 03/20/23 15:04) Headache oxycodone [From Percocet] Adverse Reaction (Verified 03/20/23 15:04) Headache HPI PO-RT hip IMN 12/15/22 w xrays HPI Details 87-year-old female who [facility] for post-op right hip IMN, 12/15/22. She states she has intermittent pain in her hip with laying down. Her pain is aggravated at night. She also reports she has pain in her groin area which last for about 10-15 minutes. She does c/o being unable to kneel back due to her pain. She is working on physical therapy as instructed. She is doing well otherwise and has no other concerns today. [facility] Medical History Hip fracture Hypothyroidism Melanoma Hyperlipidemia HTN (hypertension) Severe aortic stenosis Surgical History H/O mastectomy History of partial colectomy Status post aortic valve replacement Family History Father No problems noted. Mother No problems noted. Social History Household Members: Spouse and Family Housing: House Do you presently have visiting nurse or other home services: No Alcohol intake: former Patient Tobacco Use Status: Former Tobacco user Quit Date: 1975 Tobacco use type: Cigarette Cigarette Packs Per Day: 1 Second Hand Smoke Exposure: No service: No Current occupational status: retired Review of Systems Const All systems reviewed & are unremarkable except as noted in HPI and below Physical Exam Vital Signs: BMI result Body Mass Index 29.0 Extrem Other: Right hip: Incision clean well healed. No erythema. No pain with hip ROM. Mild discomfort with hip flexion. Calf supple, nontender. NVI. Results Reviewed Results Reviewed: Xrays were obtained in the office today and personally reviewed by me of the right hip show intact IMN with interval healing. Assessment & Plan Assessment & Plan (1) Closed fracture of right hip: Code(s): S72.001A - Fracture of unspecified part of neck of right femur, initial encounter for closed fracture Qualifiers: Encounter type: subsequent encounter Fracture healing: with routine healing Qualified Code(s): S72.001D - Fracture of unspecified part of neck of right femur, subsequent encounter for closed fracture with routine healing Plan She is going to begin physical therapy out patient to work on gait training and some more strengthening. She can increase activity as tolerated. She does not need to return unless she has any concerns or has difficulty with ambulating. She is content with this plan. Orders: Orders XR femur RT 2V Today S72.142A - Displaced intertrochanteric fracture of left femur, initial encounter for closed fracture PT Evaluation and Treatment Today S72.001A - Fracture of unspecified part of neck of right femur, initial encounter for closed fracture Patient Instructions: Scribed for Elvis Al PA-C, by Pedro Alonso medical scheduler, on 03/20/2023 at 2:45 PM EST. IElvis PA-C, have personally reviewed and agree with the information entered by the scribe. Coding Level of Care Code Global (98687) Diagnoses Closed fracture of right hip with routine healing, subsequent encounter S72.001D Encounter type: subsequent encounter Fracture healing: with routine healing
[2023-03-20 15:03] VITALS: BMI 29.0
== END 2023-03-20 15:22 | disposition home or self-care (01) ==
PROVIDERS: PCP Nurse Practitioner Family; Visit Provider Physician Assistant
DX: S72.001D Fracture of unspecified part of neck of right femur, subsequent encounter for closed fracture with routine healing (principal)
CPT/HCPCS: 99213

== ENCOUNTER 2023-04-04 12:47 | Outpatient (REF) | payer MEDICARE, SELFPAY ==
--- NOTE | ~2023-04-04 | US_ITS ---
EXAMINATION: US LOWER EXTREMITY VENOUS (REFLUX EXAM), BILATERAL CLINICAL INDICATION: Chronic venous insufficiency with lower extremity varicose veins with inflammation. Superficial thrombophlebitis seen in the right calf on prior ultrasound COMPARISON: Ultrasound from 02/13/2023 TECHNIQUE: Color flow triplex imaging and compression Doppler was performed to evaluate both the deep and the superficial systems bilaterally. To evaluate the superficial system, the examination was performed in the upright position. Color-flow Doppler ultrasound and compression ultrasound were utilized. In addition, maneuvers were utilized to demonstrate reflux. FINDINGS: 1. DEEP VENOUS ULTRASOUND OF THE RIGHT LOWER EXTREMITY: Common Femoral Vein: Compressible, normal respiratory variation and augmented flow. Femoral Vein: Compressible, normal color flow and augmentation. Popliteal Vein: Compressible, normal augmentation. Deep Reflux: There is no evidence of reflux in the deep system in either the common femoral vein, superficial femoral or the popliteal vein. There is no evidence of a Jenkins's cyst. 2. SUPERFICIAL ULTRASOUND WITH DOPPLER OF RIGHT LOWER EXTREMITY: GREAT SAPHENOUS VEIN: Saphenofemoral Junction: 0.5 cm; Reflux: 1828 ms Proximal Thigh: 0.5 cm; Reflux: 1828 ms Mid Thigh: 0.5 cm; Reflux: 0 ms Above Knee: 0.5 cm; Reflux: 2112 ms At Knee: 0.6 cm; Reflux: 1972 ms Below Knee: 0.4 cm; Reflux: 1804 ms Mid Calf: 0.4 cm; Reflux: 1356 ms Ankle: 0.2 cm; Reflux: 2048 ms DUPLICATED MEDIAL GREAT SAPHENOUS VEIN: Diameter: None imaged Reflux: NA DUPLICATED LATERAL GREAT SAPHENOUS VEIN: Diameter: None imaged Reflux: NA SMALL SAPHENOUS VEIN: Saphenopopliteal Junction: 0.4 cm; Reflux: 2104 ms Proximal: 0.3 cm; Reflux: 1792 ms Distal: 0.3 cm; Reflux: 0 ms VEIN OF GIACOMINI: Size: NA Reflux: NA PERFORATORS: Location: Proximal calf Size: 0.3 cm Reflux: 1912 ms VARICOSITIES: Location: Proximal thigh, distal thigh proximal calf and mid calf arising from the great saphenous vein. There is a separate varicose vein in the mid calf which is thrombosed measuring 6 mm in diameter. Prior ultrasound demonstrated this thrombosed varicosity extending throughout the proximal and mid calf Size: 0.3 to 0.4 cm Reflux: Ranging from 1324 ms to 1956 ms 3. DEEP VENOUS ULTRASOUND OF THE LEFT LOWER EXTREMITY: Common Femoral Vein: Compressible, normal respiratory variation and augmented flow. Femoral Vein: Compressible, normal color flow and augmentation. Popliteal Vein: Compressible, normal augmentation. Deep Reflux: There is no evidence of reflux in the deep system in either the common femoral vein, superficial femoral or the popliteal vein. There is no evidence of a Jenkins's cyst. 4. SUPERFICIAL ULTRASOUND WITH DOPPLER OF LEFT LOWER EXTREMITY: GREAT SAPHENOUS VEIN: Saphenofemoral Junction: 0.6 cm; Reflux: 0 ms Proximal Thigh: 0.6 cm; Reflux: 0 ms Mid Thigh: 0.4 cm; Reflux: 0 ms Above Knee: 0.5 cm; Reflux: 1840 ms At Knee: 0.4 cm; Reflux: 1756 ms Below Knee: 0.2 cm; Reflux: 0 ms Mid Calf: 0.2 cm; Reflux: 1224 ms Ankle: 0.3 cm; Reflux: 2360 ms DUPLICATED MEDIAL GREAT SAPHENOUS VEIN: Diameter: None imaged Reflux: NA DUPLICATED LATERAL GREAT SAPHENOUS VEIN: Diameter: None imaged Reflux: NA SMALL SAPHENOUS VEIN: Saphenopopliteal Junction: 0.2 cm; Reflux: 0 ms Proximal: 0.2 cm; Reflux: 0 ms Distal: 0.2 cm; Reflux: 0 ms VEIN OF GIACOMINI: Size: NA Reflux: NA PERFORATORS: Location: Proximal calf Size: 0.4 cm Reflux: None VARICOSITIES: Location: Proximal thigh, mid thigh and knee off the great saphenous vein. Posterior calf off the small saphenous vein Size: 0.3 to 0.7 cm Reflux: Ranging from 2020 ms to 2172 ms US/US venous duplex LE BI IMPRESSION: Right: Severe reflux throughout to the great saphenous vein and small saphenous vein. Multiple branching varicose veins with severe reflux as described above. Note is made of a thrombosed varicose vein in the mid calf which appears to have decreased in overall extent compared to the prior ultrasound Left: Severe reflux in the great saphenous vein as described above. Multiple branching varicose veins with severe reflux as described above
== END 2023-04-04 12:48 | disposition home or self-care (01) ==
LOC: HO.US 12:47
PROVIDERS: PCP Nurse Practitioner Family; Visit Provider Surgery Vascular Surgery
DX: I83.11 Varicose veins of right lower extremity with inflammation (principal)
CPT/HCPCS: 93970

== ENCOUNTER 2023-04-22 15:14 | Outpatient (AMB) | payer MEDICARE, SELFPAY ==
[2023-04-22 15:16] VITALS: BP 142/72; PULSE 70; O2SAT 94; BMI 29.0
--- NOTE | 2023-04-22 15:16 | A.OFFVIS_ITS ---
Intake Vital Signs 04/22/23 15:16 Height 5 ft 6 in Weight 180 lb BMI 29.0 BP 142/72 H Blood Pressure Location Rt brachial Position Sitting Pulse 70 Pulse Source Pulse Oximeter Pulse Oximetry (%) 94 Oxygen Delivery Method Room Air Intake Visit Reasons: follow up [facility] 04/04/2023 Intake Note: Pt presents to the office today for a follow up [facility] 04/04/23. Pt states her right leg is still sore and she is having trouble bearing weight on it. Pt denies any swelling or numbness. Allergies Sulfa (Sulfonamide Antibiotics) [SULFA (SULFONAMIDE ANTIBIOTICS)] Allergy (Unknown, Verified 04/22/23 15:17) RASH acetaminophen [From Percocet] Adverse Reaction (Verified 04/22/23 15:17) Headache oxycodone [From Percocet] Adverse Reaction (Verified 04/22/23 15:17) Headache HPI follow up [facility] 04/04/2023 HPI Details Very pleasant 87-year-old female presents for evaluation regarding venous insufficiency. She has significantly swollen and uncomfortable legs. Of note she does have an element of restless leg as well. She has skin discoloration as well. She has had a trial of compression which has not provided any relief. She also has had episodes of superficial phlebitis as w ell. She now presents for follow-up with venous insufficiency testing. [facility] Medical History Hip fracture Hypothyroidism Melanoma Hyperlipidemia HTN (hypertension) Severe aortic stenosis Surgical History H/O mastectomy History of partial colectomy Status post aortic valve replacement Family History Father No problems noted. Mother No problems noted. Social History Household Members: Spouse and Family Housing: House Do you presently have visiting nurse or other home services: No Alcohol intake: former Patient Tobacco Use Status: Former Tobacco user Quit Date: 1975 Tobacco use type: Cigarette Cigarette Packs Per Day: 1 Second Hand Smoke Exposure: No service: No Current occupational status: retired Review of Systems Const Reports as per HPI ENT Reports no additional complaints Card Denies chest pain, Denies chest pain at rest and Denies chest pain with activity Resp Denies chest congestion and Denies cough GI Reports no additional complaints Musc Details: pain over varicosities, aching of lower extremities, swelling, cramping, heaviness and tiredness, itching Denies abnormal gait Skin/Breast Reports pruritus and Denies wounds Neuro Reports no additional complaints and Denies abnormal gait Psych Denies no additional complaints Physical Exam Vital Signs: Last Vital Signs Pulse 70 04/22/23 15:16 BP 142/72 H 04/22/23 15:16 Pulse Ox 94 04/22/23 15:16 Oxygen Delivery Method Room Air 04/22/23 15:16 BMI result Body Mass Index 29.0 Const General: cooperative, healthy appearing and comfortable Orientation/consciousness: oriented to person, oriented to place and oriented to time Neck Carotids: no bruits Chest Chest palpation & inspection: normal inspection of the chest and normal palpation of entire chest wall Resp Effort & Inspection: normal respiratory effort and able to speak in complete sentences Cardio Rate: regular rate Heart sounds: S1 normal heart sound present and S2 normal heart sound present Peripheral pulses: Peripheral pulses 2+ throughout GI Inspection: Yes normal to inspection Skin Other: +2 edema, large rope-like varicosities greater than 4 mm CEAP Classification C4 - skin color changes Ep - Etiology Primary As - superficial veins P - reflux General skin exam: dry skin Neuro General: oriented to person, oriented to place and oriented to time Extrem Right lower extremity: full ROM, normal capillary refill and edema Left lower extremity: full ROM, normal capillary refill and edema Psych Mental Status: mental status grossly normal Results Reviewed Results Reviewed: Brief summary of venous insufficiency testing is as follows: right great saphenous vein: Positive right small saphenous vein: Positive right accessory vein: none present left great saphenous vein: Positive left small saphenous vein: negative left accessory vein: none present Please note there is no evidence of any venous aneurysms or significant tortuosity Assessment & Plan Assessment & Plan (1) Varicose veins of right lower extremity with inflammation: Code(s): I83.11 - Varicose veins of right lower extremity with inflammation Plan: This patient has varicose veins with inflammation. They continue to be a source of discomfort for the patient. The patient has tried conservative treatment with compression, leg elevation and exercise program for over 3 months time. They have been compliant with all treatment. This has provided minimal relief for the patient. I do not anticipate this course of treatment will alter the underlying etiology. The patient has been scheduled for lower extremity venous treatment inclusive of --- right great saphenous vein Cyanoacralate ablation. Risks, benefits, and complications of this procedure has been discussed in detail with the patient including but not limited to bleeding, infection, and the development of a DVT. The patient has demonstrated a clear understanding and has consented. We will schedule the patient as soon as possible. Thank you for allowing us to participate in this patient's care. If there are any questions or concerns please do not hesitate to contact us. Coding Level of Care Code Est Pt Level 4 (34818) Diagnoses Varicose veins of right lower extremity with inflammation I83.11
== END 2023-04-22 15:46 | disposition home or self-care (01) ==
PROVIDERS: PCP Nurse Practitioner Family; Visit Provider Surgery Vascular Surgery
DX: I83.11 Varicose veins of right lower extremity with inflammation (principal)
CPT/HCPCS: 99214

== ENCOUNTER → 2023-04-22 15:14 | Outpatient (BNVA) | payer MEDICARE, SELFPAY | PROVIDERS: PCP Nurse Practitioner Family; Visit Provider Surgery Vascular Surgery | DX: I83.11 Varicose veins of right lower extremity with inflammation (principal) | CPT/HCPCS: 99212 ==

== ENCOUNTER 2023-06-13 12:32 | Outpatient (AMB) | payer MEDICARE, SELFPAY ==
[2023-06-13 13:34] VITALS: BMI 29.0
--- NOTE | 2023-06-13 13:34 | MHC.OFFVIS ---
Intake Vital Signs 06/13/23 13:34 Height 5 ft 6 in Weight 180 lb BMI 29.0 Intake Visit Reasons: Right GSV Venaseal Allergies Sulfa (Sulfonamide Antibiotics) [SULFA (SULFONAMIDE ANTIBIOTICS)] Allergy (Unknown, Verified 06/13/23 13:34) RASH acetaminophen [From Percocet] Adverse Reaction (Verified 06/13/23 13:34) Headache oxycodone [From Percocet] Adverse Reaction (Verified 06/13/23 13:34) Headache PFSH Medical History Hip fracture Hypothyroidism Melanoma Hyperlipidemia HTN (hypertension) Severe aortic stenosis Surgical History H/O mastectomy History of partial colectomy Status post aortic valve replacement Family History Father No problems noted. Mother No problems noted. Social History Household Members: Spouse and Family Housing: House Do you presently have visiting nurse or other home services: No Alcohol intake: former Patient Tobacco Use Status: Former Tobacco user Quit Date: 1975 Tobacco use type: Cigarette Cigarette Packs Per Day: 1 Second Hand Smoke Exposure: No service: No Current occupational status: retired Physical Exam Vital Signs: BMI result Body Mass Index 29.0 Office Procedures Vascular Office Procedure Details Details: Diagnosis: Right Leg varicose veins with inflammation Procedure: Endovenous Ablation of the right Great Saphenous Vein with VenaSeal Closure System Anesthesia: Local infiltration 5 cc, Estimated Blood Loss: min Specimen: none Duplex ultrasound was used to map out the insufficient saphenous vein, and access was determined and marked on the overlying skin. The depth and diameter of the vein(s) to be treated was documented. The patient was placed supine on the procedure table and the leg was prepped and draped using sterile technique. Ultasound guidance was again used to localize the access site. 1% lidocaine was injected as a local anesthetic in the subcutaneous tissues at the target location in the GSV in the lower leg. Using ultrasound guidance, access was gained at this location with the 19 gauge thin walled access needle and followed by introduction of a short guidewire, location confirmed with ultrasound. A small, 3 mm incision was made at the access site to allow for introduction and placement of the 7 Fr x7cm introducer/dilator. The dilator and guidewire were removed. The 0.035 guidewire from the VenaSeal kit was then introduced and positioned at the saphenofemoral junction using ultrasound guidance. The 80 cm 7 Fr introducer sheath/dilator was positioned 5cm from the saphenofemoral junction. The guidewire and dilator were removed, and the remaining sheath was flushed with sterile saline, with the syringe remaining in place prior to the next steps. The cyanoacrylate adhesive was precisely primed into the 5 F delivery catheter and this catheter/syringe combination was attached within the dispenser gun. This assembly was introduced through the 7F sheath and positioned 5 cm caudal of the saphenofemoral junction under ultrasound guidance. The steps from the IFU were followed for dispensing amounts, locations and compression times, 2 aliquots proximally with 3 minutes of compression, and 1 aliquot every 3 cm distally with 30 sec of compression along the course of the vessel. Following the last injection and compression sequence, the catheter and introducer sheath were pulled out from the access site. Hemostasis was achieved with manual compression and an adhesive bandage was applied to the incision. Ultrasound confirmed complete coaptation and closure of the treated segments of the GSV, and the absence of any DVT at the saphenofemoral junction. Treatment time was approximately 6 minutes and the vein length treated was 47 cm. The drapes were removed and the patient cleaned and prepared for discharge. Post op ultrasound check is scheduled for 48-72 hours and the patient was given written post-op instructions. [id number] - Endoven Ther Chem Adhes 1st All charges added?: Procedure code (CPT) selection complete Assessment & Plan Assessment & Plan (1) Varicose veins of right lower extremity with inflammation: Comment: 06/13/2023 - right great saphenous vein Cyanoacralate ablation Code(s): I83.11 - Varicose veins of right lower extremity with inflammation Plan: See op note Coding Level of Care Code Procedure Only Diagnoses Varicose veins of right lower extremity with inflammation I83.11 CPT Codes Details - Vascular 3: 90733 - Endoven Ther Chem Adhes 1st ([id number])
== END 2023-06-13 15:04 | disposition home or self-care (01) ==
PROVIDERS: PCP Nurse Practitioner Family; Visit Provider Surgery Vascular Surgery
DX: I83.11 Varicose veins of right lower extremity with inflammation (principal)
CPT/HCPCS: 36482

== ENCOUNTER → 2023-06-13 12:32 | Outpatient (BNVA) | payer MEDICARE, SELFPAY | PROVIDERS: PCP Nurse Practitioner Family; Visit Provider Surgery Vascular Surgery | DX: I83.11 Varicose veins of right lower extremity with inflammation (principal) | CPT/HCPCS: 36482 ==

== ENCOUNTER 2023-06-16 10:00 | Outpatient (REF) | payer MEDICARE, SELFPAY ==
--- NOTE | ~2023-06-16 | US_ITS ---
EXAMINATION: TRIPLEX SCANNING OF RIGHT LOWER EXTREMITY; SUPERFICIAL ULTRASOUND WITH DOPPLER OF RIGHT LOWER EXTREMITY CLINICAL INFORMATION: Status post VenaSeal ablation of right great saphenous vein originally performed on 06/13/2023. COMPARISON: 04/04/2023. TECHNIQUE: Color flow triplex imaging and compression Doppler were performed as well as superficial ultrasound with Doppler. FINDINGS: TRIPLEX SCANNING OF RIGHT LOWER EXTREMITY: Respiratory variation, normal compression and augmented flow are noted throughout the lower extremity. The visualized common femoral vein, femoral vein, profunda femoral vein, popliteal vein and the calf veins show no evidence of deep venous thrombosis. There is no evidence of Jenkins's cyst. SUPERFICIAL ULTRASOUND WITH DOPPLER OF RIGHT LOWER EXTREMITY: The right great saphenous vein is occluded with the distal 1.7 cm remaining patent. There is no extension of thrombus into the deep system. US/US venous duplex LE RT IMPRESSION: 1. Normal triplex scan of the right without evidence of deep venous thrombosis. 2. Excellent appearance status post ablation of the right great saphenous vein.
== END 2023-06-16 10:01 | disposition home or self-care (01) ==
LOC: HO.HMGCX 10:00
PROVIDERS: PCP Nurse Practitioner Family; Visit Provider Surgery Vascular Surgery
DX: M79.604 Pain in right leg (principal)
CPT/HCPCS: 93971

== ENCOUNTER 2023-06-26 15:27 | Outpatient (AMB) | payer MEDICARE, SELFPAY ==
[2023-06-26 15:30] VITALS: BMI 29.0
--- NOTE | 2023-06-26 15:30 | A.OFFVIS_ITS ---
Intake Vital Signs 06/26/23 15:30 Height 5 ft 6 in Weight 180 lb BMI 29.0 Intake Visit Reasons: 2 week follow up Right GSV Venaseal 06/13/23 Intake Note: 2 week follow up Right GSV Venaseal 06/13/23, pt states that she has some pain in the groin and thigh area still along with some discoloration Accompanied by: Daughter Allergies Sulfa (Sulfonamide Antibiotics) [SULFA (SULFONAMIDE ANTIBIOTICS)] Allergy (Unknown, Verified 06/26/23 15:40) RASH acetaminophen [From Percocet] Adverse Reaction (Verified 06/26/23 15:40) Headache oxycodone [From Percocet] Adverse Reaction (Verified 06/26/23 15:40) Headache HPI 2 week follow up Right GSV Venaseal 06/13/23 HPI Details Very pleasant 87-year-old female presents for follow-up status post right great saphenous vein ablation. Reports that doing fairly well but some tenderness in the thigh. Overall feels somewhat better. Still has some generalized pain of the leg. Now for postprocedure follow-up. Of note postprocedure ultrasound was negative for DVT. [facility] Medical History Hip fracture Hypothyroidism Melanoma Hyperlipidemia HTN (hypertension) Severe aortic stenosis Surgical History H/O mastectomy History of partial colectomy Status post aortic valve replacement Family History Father No problems noted. Mother No problems noted. Social History Household Members: Spouse and Family Housing: House Do you presently have visiting nurse or other home services: No Alcohol intake: former Patient Tobacco Use Status: Former Tobacco user Quit Date: 1975 Tobacco use type: Cigarette Cigarette Packs Per Day: 1 Second Hand Smoke Exposure: No service: No Current occupational status: retired Review of Systems Const All systems reviewed & are unremarkable except as noted in HPI and below Reports no additional complaints ENT Reports Normal hearing present Card Denies chest pain, Denies chest pain at rest, Denies chest pain with activity and Denies pedal edema Resp Denies cough GI Denies abdominal pain Musc Denies abnormal gait, Denies muscle cramps and Denies radiating pain into limb Skin/Breast Denies skin ulcer and Denies wounds Neuro Reports Normal hearing present and Denies abnormal gait Psych Reports no additional complaints Physical Exam Vital Signs: BMI result Body Mass Index 29.0 Const General: cooperative, healthy appearing and comfortable Orientation/consciousness: oriented to person, oriented to place and oriented to time HEENT Head: Yes normal to inspection Neck Neck: Yes normal visual inspection Carotids: no bruits Chest Chest palpation & inspection: normal inspection of the chest Resp Effort & Inspection: normal respiratory effort and able to speak in complete sentences Auscultation: clear to auscultation bilaterally, no crackles, no rales, no rhonchi and no wheezes Cardio Rate: regular rate Rhythm: regular rhythm Heart sounds: S1 normal heart sound present and S2 normal heart sound present Bruits: no carotid bruits Peripheral pulses: Peripheral pulses 2+ throughout GI Inspection: Yes normal to inspection Skin Wounds: no wounds Hair: normal Neuro General: oriented to person, oriented to place and oriented to time Cranial nerves: Yes CN's II-XII intact bilaterally and Yes Normal hearing present Cognition (Neuro): normal cognition Motor exam (neuro): 5/5 motor strength present throughout Extrem Other: venous exam: +1 edema General: No clubbing, No cyanosis and Yes edema Psych Appearance: grossly normal Mental Status: mental status grossly normal Speech and movement: Normal speech and movement present Assessment & Plan Assessment & Plan (1) Varicose veins of right lower extremity with inflammation: Comment: 06/13/2023 - right great saphenous vein Cyanoacralate ablation Code(s): I83.11 - Varicose veins of right lower extremity with inflammation Plan: In short patient has done well with right great saphenous vein ablation. At the current time she would like to hold off on any further interventions. She will require right small saphenous and left great saphenous vein ablation is in the future. We will see how she does over the next 6 months. We did discuss routine conservative measures including compression elevation and exercise. She will follow up with us after the summer and will see how her legs are doing at that point. Thank you for allowing us to assist in her care. If there are any questions or concerns please do not hesitate to contact us Coding Level of Care Code Est Pt Level 3 (09977) Diagnoses Varicose veins of right lower extremity with inflammation I83.11
== END 2023-06-26 15:54 | disposition home or self-care (01) ==
PROVIDERS: PCP Nurse Practitioner Family; Visit Provider Surgery Vascular Surgery
DX: I83.11 Varicose veins of right lower extremity with inflammation (principal)
CPT/HCPCS: 99213

== ENCOUNTER → 2023-06-26 15:27 | Outpatient (BNVA) | payer MEDICARE, SELFPAY | PROVIDERS: PCP Nurse Practitioner Family; Visit Provider Surgery Vascular Surgery | DX: I83.11 Varicose veins of right lower extremity with inflammation (principal) | CPT/HCPCS: 99212 ==

== ENCOUNTER 2023-10-27 12:17 | Outpatient (REF) | payer MEDICARE, SELFPAY ==
--- NOTE | ~2023-10-27 | XR_ITS ---
EXAMINATION: XR HIP, RIGHT CLINICAL INFORMATION: Hip pain COMPARISON: 03/20/2023 hip radiographs TECHNIQUE: Two views of the right hip and pelvis. FINDINGS: Again seen is an ORIF of a comminuted intertrochanteric right hip fracture in similar alignment with persistent lucency of the fracture margins. No evidence of hardware fracture or complication. 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 Osteopenia. No new fracture or dislocation. 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 XR/XR hip RT min 2V IMPRESSION: 1. Again seen is an ORIF of a comminuted intertrochanteric right hip fracture in similar alignment with persistent lucency of the fracture margins. No evidence of hardware fracture or complication. 2. 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
== END 2023-10-27 12:18 | disposition home or self-care (01) ==
LOC: HO.HOSX 12:17
PROVIDERS: PCP Nurse Practitioner Family; Visit Provider Orthopaedic Surgery
DX: S72.001D Fracture of unspecified part of neck of right femur, subsequent encounter for closed fracture with routine healing (principal); X58.XXXD Exposure to other specified factors, subsequent encounter; Z98.890 Other specified postprocedural states
CPT/HCPCS: 73502; 99212

== ENCOUNTER 2023-10-27 12:17 | Outpatient (AMB) | payer MEDICARE, SELFPAY ==
--- NOTE | 2023-10-27 12:22 | MHC.OFFVIS ---
Intake Visit Reasons: OV- RT hip follow up Intake Note: Vanessa an 87 year old female presents today for a post operative right hip IMN, DOS 12/15/22. Patient reports that she is having a aching pain in the hip. The leg gives out on her when weight bearing, she is unable to walk without the cane. Allergies Sulfa (Sulfonamide Antibiotics) [SULFA (SULFONAMIDE ANTIBIOTICS)] Allergy (Unknown, Verified 10/27/23 12:25) RASH acetaminophen [From Percocet] Adverse Reaction (Verified 10/27/23 12:25) Headache oxycodone [From Percocet] Adverse Reaction (Verified 10/27/23 12:25) Headache HPI HPI OV- RT hip follow up: Details: Vanessa an 87 year old female presents today for a post operative right hip IMN, DOS 12/15/22. Patient reports that she is having a aching pain in the hip. The leg gives out on her when weight bearing, she is unable to walk without the cane. [facility] Medical History (Updated 10/27/23 @ 13:22 by Nestor Phelps MD) Hip fracture Hypothyroidism Melanoma Hyperlipidemia HTN (hypertension) Severe aortic stenosis Surgical History H/O mastectomy History of partial colectomy Status post aortic valve replacement Family History Father No problems noted. Mother No problems noted. Social History Household Members: Spouse and Family Housing: House Do you presently have visiting nurse or other home services: No Alcohol intake: former Patient Tobacco Use Status: Former Tobacco user Tobacco use type: Cigarette Cigarette Packs Per Day: 1 Second Hand Smoke Exposure: No service: No Current occupational status: retired Physical Exam Extrem Other: Trendelenberg gait with + impingement Results Reviewed Results Reviewed: I personally reviewed relevant radiographs. Healed IT fx with no harware complications Assessment & Plan Assessment & Plan (1) Hip fracture: Code(s): S72.009A - Fracture of unspecified part of neck of unspecified femur, initial encounter for closed fracture Category: Medical Plan: Right hip fracture doing well with persistent limp. I recommend a walker. An Rx was written Orders: Orders XR pelvis 1-2V Today M25.559 - Pain in unspecified hip Medications: New [walker with bench seat] As directed 1 ea 0RF S72.009A - Fracture of unspecified part of neck of unspecified femur, initial encounter for closed fracture Coding Level of Care Code Est Pt Level 3 (86504) Diagnoses Hip fracture S72.009A
== END 2023-10-27 13:26 | disposition home or self-care (01) ==
PROVIDERS: PCP Nurse Practitioner Family; Visit Provider Orthopaedic Surgery
DX: S72.009A Fracture of unspecified part of neck of unspecified femur, initial encounter for closed fracture (principal)
CPT/HCPCS: 99213

== ENCOUNTER → 2023-10-30 10:54 | Outpatient (REF) | payer MEDICARE, SELFPAY ==
--- NOTE | 2023-10-30 10:57 | CA_ITS ---
Transthoracic Echocardiogram Patient (Last, First, Middle): Vanessa Hightower, Gender: Female Date of : 1935 Age: 87 Procedure Date: 10/30/2023 Procedure Type: Transthoracic Echocardiogram Location: OP Height: 167.64 cm Weight: 81.65 kg BSA: 1.91 m2 Heart Rate: 60 bpm BP: 150 / 40 mmHg Tax Clerk: BILL Referring MD: Julio Cesar Min MD Warehouse Order Picker: Julio Cesar Min MD Symptoms: Z95.2 - Presence of prosthetic heart valve Study Quality: Adequate w contrast ECG Rhythm: Sinus Conclusions: - 1. Hyperdynamic LV ejection fraction of greater than 70% with pseudonormal filling pattern 2. Normally functioning bioprosthetic aortic valve with mean gradient of 8 mm Hg 3. Calcific mitral valve changes noted Findings Procedure Information Contrast agent, definity, is being given per protocol without apparent complications. Left Ventricle Normal left ventricular cavity size. There is normal left ventricular wall thickness. The left ventricular systolic function is hyperdynamic. The visually estimated ejection fraction is >70%. Regional wall motion abnormalities can not be excluded due to suboptimal endocardial definition. Spectral Doppler is indicative of a pseudonormal filling pattern. There is mild septal asymmetric hypertrophy. Right Ventricle Mildly increased right ventricular cavity size. There is normal right ventricular systolic function. Atria The left atrium is moderately dilated. Interatrial shunt cannot be excluded. The right atrium was not well visualized. Aortic Valve A bioprosthetic aortic valve is present. The prosthetic aortic valve appears to be functioning normally. The mean gradient is 8 mmHg. There is no aortic valve regurgitation. Mitral Valve There is moderate anterior and severe posterior mitral leaflet thickening. There is moderate anterior and moderate posterior mitral annular calcification. There is trace mitral valve regurgitation. There is no mitral valve stenosis. Pulmonic Valve The pulmonic valve was not well visualized. Tricuspid Valve The tricuspid valve was not well visualized. Tricuspid regurgitation envelope is inadequate for calculation of right ventricular systolic pressure. Indeterminate right atrial pressure. Great Vessels The aorta was not well visualized. The pulmonary artery was not well visualized. Venous The inferior vena cava was not well visualized. Pericardium/Pleural The pericardium was not well visualized. Prior Study Comparison No significant change compared to prior study dated: 10/23/2022. Measurements 2D Linear Measurements IVSd: 1.40 0.6-0.9/0.6-1.0 cm LVIDd: 4.12 3.9-5.3/4.2-5.9 cm LVIDs: 2.47 2.0-3.6 cm LVPWd: 0.82 0.7-1.1 cm LA Diam: 3.50 2.7-3.8/3.0-4.0 cm LV Mass: 191.80 67-162/88-224 g LVOT Diam: 2.10 3.0+(-)1.3 cm 2D Systolic Function EF 4C: 68.20 >55% EF 2C: 74.70 >55% EF BiP: 70.80 >55% Mitral Valve MV VTI: 0.54 MV Pk Tim: 1.50 MV Mn Tim: 0.87 MV Pk Grad: 9.00 MV Mn Grad: 4.00 MV Pk E: 1.41 MV PK A: 1.44 MV Decel Time: 302.00 E/A: 1.00 E'Lateral: 7.29 E'Medial: 4.57 E/E' Med: 30.90 E/E' Lat: 19.30 PHT: 88.00 MVA PHT: 2.50 MVA Continuity: 1.49 Decel [place]: 4.68 Aortic Valve AoV Pk Tim: 1.97 AoV Mn Tim: 1.33 AoV VTI: 0.43 AoV Pk Grad: 16.00 Aov Mn Grad: 8.00 RODRIGO Cont.VTI: 1.90 LVOT LVOT Pk Tim: 1.00 LVOT Mn Tim: 0.70 LVOT VTI: 0.23 LVOT Pk Grad: 4.00 LVOT Mn Grad: 2.00 LVOT Diam: 2.10 LVOT Area: 3.46 Diastolic Function MV Pk E: 1.41 MV Pk A: 1.44 E/A: 1.00 E'Medial: 4.57 E/E' Med: 30.90 E' Laterial: 7.29 E/E' Lat: 19.30 Right Ventricle TAPSE (mm): 18.80 Great Vessels Aorta Ao Asc: 3.40 2.1-3.4 cm Pulmonary Valve PV Pk Tim: 1.23 Peak PV Grad: 6.00 WV Pk Tim: 1.77 Updated in Other Vendor System with Status of Final Julio Cesar Min MD electronically signed on 10/31/2023 11:44:22 AM with status of Final
== END ==
LOC: HO.CARD 10:54
PROVIDERS: PCP Nurse Practitioner Family; Visit Provider Internal Medicine Cardiovascular Disease
DX: Z95.2 Presence of prosthetic heart valve (principal)
CPT/HCPCS: 93306; Q9957

== ENCOUNTER → 2023-10-30 10:57 | Outpatient (BNV) | payer MEDICARE, SELFPAY | PROVIDERS: PCP Nurse Practitioner Family; Visit Provider Internal Medicine Cardiovascular Disease | DX: I42.2 Other hypertrophic cardiomyopathy (principal); Z95.3 Presence of xenogenic heart valve | CPT/HCPCS: 93306 ==

== ENCOUNTER 2023-11-10 14:19 | Outpatient (AMB) | payer MEDICARE, SELFPAY ==
--- NOTE | 2023-11-10 14:38 | AM.OFFWIN_ITS ---
Intake Vital Signs 11/10/23 14:39 Height 5 ft 6 in Weight 178 lb BMI 28.7 BP 168/62 H Blood Pressure Location Lt brachial Position Sitting Pulse 74 Pulse Source Pulse Oximeter Temp 98.3 F Temp Source Oral Pulse Oximetry (%) 94 Oxygen Delivery Method Room Air Intake Visit Reasons: EP- SOB, sore throat, runny nose Intake Note: pt c/o SOB, sore throat, Runny nose. Started Friday. Fever 101 Friday Patient Tobacco Use Status: Former Tobacco user Allergies Sulfa (Sulfonamide Antibiotics) [SULFA (SULFONAMIDE ANTIBIOTICS)] Allergy (Unknown, Verified 11/10/23 14:39) RASH acetaminophen [From Percocet] Adverse Reaction (Verified 11/10/23 14:39) Headache oxycodone [From Percocet] Adverse Reaction (Verified 11/10/23 14:39) Headache Do you need a note to return to daycare/school/sports/work: No HPI HPI Comments History of Present Illness Details Patient is an 87-year-old female complaining of shortness of breath, runny nose, fever for 4 days. She states she had the fever 2 days ago and it went away on its own, her T-max was 102 degrees F. she has been taking Sudafed and Robitussin to treat her symptoms. She states no one at home is sick. She states this morning she started feeling a pressure in her chest and was worried it was moving into her lungs. She did not test for COVID at home. [facility] Medical History (Updated 11/10/23 @ 15:16 by Lorena Hernandez PA-C) Hip fracture Hypothyroidism Melanoma Hyperlipidemia HTN (hypertension) Severe aortic stenosis Surgical History H/O mastectomy History of partial colectomy Status post aortic valve replacement Family History Father No problems noted. Mother No problems noted. Social History Household Members: Spouse and Family Housing: House Do you presently have visiting nurse or other home services: No Alcohol intake: former Patient Tobacco Use Status: Former Tobacco user Tobacco use type: Cigarette Cigarette Packs Per Day: 1 Second Hand Smoke Exposure: No service: No Current occupational status: retired Review of Systems Const All systems reviewed & are unremarkable except as noted in HPI and below Physical Exam Vital Signs: Last Vital Signs Temp 98.3 F 11/10/23 14:39 Pulse 74 11/10/23 14:39 BP 168/62 H 11/10/23 14:39 Pulse Ox 94 11/10/23 14:39 Oxygen Delivery Method Room Air 11/10/23 14:39 BMI result Body Mass Index 28.7 Const General: cooperative, healthy appearing, comfortable and no acute distress Orientation/consciousness: patient oriented x3 Limitations: no limitations HEENT Head: Yes normal to inspection Ears: hearing grossly normal bilaterally, external ears normal and TM's normal bilaterally General nose exam: Normal external nose present, Normal nares present and No nasal discharge present Face and sinus: Yes normal facial exam and Yes sinuses nontender Mouth: Normal oral and palatal mucosa present and moist mucous membranes Throat: Yes tonsils normal, Yes uvula midline and Yes posterior oropharynx abnormal (Erythema) Eyes General: appearance normal, both eyes and all related structures Neck Neck: Yes normal visual inspection Resp Effort & Inspection: normal respiratory effort, able to speak in complete sentences, no respiratory distress, not tachypneic, no tripod positioning and no use of accessory muscles Auscultation: diminished lung sounds diffuse Cardio Rate: regular rate Rhythm: regular rhythm Heart sounds: normal S1 and S2 Skin General skin exam: no rashes or lesions noted Neuro General: patient oriented x3 Extrem General: Yes normal to inspection and Yes no clubbing, cyanosis or edema Results AMB Rapid Strep AMB Rapid Strep Negative Last Edit by Lul Magana CMA on 11/10/23 14:59 Results Reviewed Results Reviewed: Laboratory Last Values Strep Scn Rapid Clinic Negative 11/10/23 14:58 Assessment & Plan Assessment & Plan (1) URI (upper respiratory infection): Code(s): J06.9 - Acute upper respiratory infection, unspecified Qualifiers: URI type: unspecified URI Qualified Code(s): J06.9 - Acute upper respiratory infection, unspecified Plan: Rapid strep negative, we will send flu COVID and RSV. Chest x-ray ordered, treatment pending results of chest x-ray. 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 Educated patient on the effects of Sudafed on her blood pressure, as it was quite elevated today. Recommended she stopped taking Sudafed and recheck her blood pressure tomorrow. Plan See above Orders: Orders XR chest 2V Today R05.9 - Cough, unspecified SARS-CoV2/FLU/RSV Today J06.9 - Acute upper respiratory infection, unspecified AMB Rapid Strep Screen Today Z13.9 - Encounter for screening, unspecified Coding Level of Care Code New Pt Level 4 (06347) Diagnoses Upper respiratory tract infection, unspecified type J06.9 URI type: unspecified URI
[2023-11-10 14:39] VITALS: BP 168/62; PULSE 74; TEMP 36.8; O2SAT 94; BMI 28.7
== END 2023-11-10 15:19 | disposition home or self-care (01) ==
PROVIDERS: PCP Nurse Practitioner Family; Visit Provider Physician Assistant
DX: Z13.9 Encounter for screening, unspecified (principal); J06.9 Acute upper respiratory infection, unspecified
CPT/HCPCS: 87880; 99204

== ENCOUNTER 2023-11-10 15:09 | Outpatient (REF) | payer MEDICARE, SELFPAY ==
--- NOTE | ~2023-11-10 | XR_ITS ---
EXAMINATION: XR CHEST CLINICAL INFORMATION: Cough. COMPARISON: Chest x-ray December 14, 2022 TECHNIQUE: 2 views of the chest were obtained. FINDINGS: Status post median sternotomy for aortic valve repair. Heart size is normal. Cardiac mediastinal contours normal. No pulmonary vascular congestion. Lungs are normally aerated. There is no pleural effusion or pneumothorax. 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 XR/XR chest 2V IMPRESSION: No acute abnormality of the chest.
== END 2023-11-10 15:10 | disposition home or self-care (01) ==
LOC: HO.HMGCX 15:09
PROVIDERS: PCP Nurse Practitioner Family; Visit Provider Physician Assistant
DX: R05.9 Cough, unspecified (principal)
CPT/HCPCS: 71046

== ENCOUNTER 2023-11-10 15:10 | Outpatient (REF) | payer MEDICARE, SELFPAY ==
[2023-11-10 17:06] LABS: Influenza A PCR NEGATIVE (Negative); Influenza B PCR NEGATIVE (Negative); Resp Syncy Virus RNA Qual PCR NEGATIVE (Negative); SARS COV2 PCR INHOUSE POSITIVE (Negative)
== END 2023-11-10 15:11 | disposition home or self-care (01) ==
LOC: HO.LAB 15:10
PROVIDERS: Visit Provider Physician Assistant
DX: J06.9 Acute upper respiratory infection, unspecified (principal); R05.9 Cough, unspecified; Z98.890 Other specified postprocedural states
CPT/HCPCS: 0241U; 71046

== ENCOUNTER 2023-12-22 11:10 | Outpatient (AMB) | payer MEDICARE, SELFPAY ==
--- NOTE | 2023-12-22 11:15 | MHC.OFFVIS ---
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: No Accompanied by: Daughter Allergies Sulfa (Sulfonamide Antibiotics) [SULFA (SULFONAMIDE ANTIBIOTICS)] Allergy (Unknown, Verified 11/10/23 14:39) RASH acetaminophen [From Percocet] Adverse Reaction (Verified 11/10/23 14:39) Headache oxycodone [From Percocet] Adverse Reaction (Verified 11/10/23 14:39) Headache Medication List - Last Reconciled 12/22/23 by Julio Cesar Min MD acetaminophen (Tylenol Extra Strength) 1,000 mg PO QAM amlodipine 5 mg PO DAILY aspirin (Adult Low Dose Aspirin) 81 mg PO DAILY atorvastatin 20 mg PO DAILY cholecalciferol (vitamin D3) 25 mcg PO DAILY levothyroxine 125 mcg PO DAILY losartan 100 mg PO DAILY metoprolol succinate ER 25 mg PO DAILY omeprazole 20 mg PO DAILY polyethylene glycol 3350 (Miralax) 17 grams PO DAILY PRN [walker with bench seat As directed] HPI Comments Details: Vanessa comes for follow-up, accompanied by her daughter. She his very bothered by her right leg. She said she had a fracture of the hip which is never healed properly. She has difficulty walking although she does not want anymore procedures on her right leg or the left leg. She does have exertional shortness of which is not significantly changed. Denies any orthopnea, PND, leg edema. No lightheadedness, syncope. No prolonged palpitations or irregular heartbeat. No exertional chest pain. She had a recent echocardiogram which shows hyperdynamic LV ejection fraction greater than 70% with normally function bioprosthetic aortic valve. [facility] Medical History Hip fracture Hypothyroidism Melanoma Hyperlipidemia HTN (hypertension) Severe aortic stenosis Surgical History H/O mastectomy History of partial colectomy Status post aortic valve replacement Family History Father No problems noted. Mother No problems noted. Social History Household Members: Spouse and Family Housing: House Do you presently have visiting nurse or other home services: No Alcohol intake: former Patient Tobacco Use Status: Former Tobacco user Tobacco use type: Cigarette Cigarette Packs Per Day: 1 Second Hand Smoke Exposure: No service: No Current occupational status: retired Review of Systems Const Denies chills, Denies fatigue, Denies fever(s), Denies frequent falls, Denies weakness, Denies weight gain and Denies weight loss ENT Denies dizziness Card Denies chest pain, Denies leg edema, Denies lightheadedness, Denies palpitations, Denies dyspnea and Denies dyspnea on exertion Resp Denies cough, Denies dyspnea and Denies dyspnea on exertion GI Denies hematochezia Musc Denies abnormal gait, Denies muscle weakness, Denies numbness, Denies radiating pain into limb and Denies tingling Neuro Denies abnormal gait, Denies dizziness, Denies frequent falls, Denies numbness, Denies tingling and Denies weakness Endo Denies fatigue and Denies palpitations Physical Exam Vital Signs: Last Vital Signs Pulse 66 12/22/23 11:17 BP 130/62 12/22/23 11:17 BMI result Body Mass Index 29.2 Repeat blood pressure is 152/70 Const General: cooperative, comfortable, no acute distress, alert, awake and well groomed Nutritional Appearance: obese Orientation/consciousness: patient oriented x3 Limitations: no limitations HEENT Head: Yes normocephalic and Yes atraumatic Neck Neck: Yes trachea midline, Yes supple and Yes no JVD Chest Chest palpation & inspection: abnormal inspection of the chest kyphotic and other (Well-healed sternotomy scar) Resp Effort & Inspection: normal respiratory effort Auscultation: clear to auscultation bilaterally Cardio Jugular venous distension: no JVD Palpation: normal PMI Rate: regular rate Rhythm: regular rhythm Heart sounds: S1 normal heart sound present, S2 normal heart sound present, Murmur heart sound present systolic early and Other heart sounds present (S4 present) GI Auscultation: normal bowel sounds Skin General skin exam: no rashes or lesions noted Neuro General: patient oriented x3 and no focal motor deficits Extrem General: No no clubbing, cyanosis or edema and Yes other (Bilateral varicosities as well as discoloration around the ankles and spide) Psych Appearance: grossly normal Office Procedures EKG Details: EKG shows normal sinus rhythm with sinus arrhythmia with nonspecific ST changes 43310-[id number], Complete Assessment & Plan Assessment & Plan (1) Status post aortic valve replacement: Comment: 23 mm bioprosthetic aortic valve replacement, bovine prosthesis, April [address] Nando Hendricks. No concomitant CAD Code(s): Z95.2 - Presence of prosthetic heart valve Category: Surgical Plan: Bioprosthetic aortic valve replacement without any significant symptoms. The valve is working well clinically. Echocardiogram shows normal function of the valve itself. Continue low-dose aspirin therapy. SBE prophylaxis as per ACC/aha guidelines. Continue aggressive risk factor modification. Follow-up echocardiogram in 1 year's time (2) HTN (hypertension): Code(s): I10 - Essential (primary) hypertension Category: Medical Plan: Hypertension which is currently well optimized advised to monitor blood pressure at home maintain a log. Goal blood pressure less than 130/84. Low-salt diet was discussed. No change in therapy. Follow up in the clinic in 1 year's time, sooner p.r.n.. Thank you for allowing me to partake in her care Orders: Orders CA echo transthoracic complete 1 Year Z95.2 - Presence of prosthetic heart valve Coding Level of Care Code Est Pt Level 4 (32771) Diagnoses Status post aortic valve replacement Z95.2 HTN (hypertension) I10 CPT Codes EKG - CPT: 06676-[id number], Complete ([id number])
[2023-12-22 11:17] VITALS: BP 130/62; PULSE 66; BMI 29.2
== END 2023-12-22 11:38 | disposition home or self-care (01) ==
PROVIDERS: PCP Nurse Practitioner Family; Visit Provider Internal Medicine Cardiovascular Disease
DX: Z95.2 Presence of prosthetic heart valve (principal); I10 Essential (primary) hypertension
CPT/HCPCS: 93010; 99214

== ENCOUNTER → 2023-12-22 11:10 | Outpatient (BNVA) | payer MEDICARE, SELFPAY | PROVIDERS: PCP Nurse Practitioner Family; Visit Provider Internal Medicine Cardiovascular Disease | DX: I10 Essential (primary) hypertension (principal); Z95.2 Presence of prosthetic heart valve; R94.31 Abnormal electrocardiogram [ECG] [EKG] | CPT/HCPCS: 93005; 99212 ==

== ENCOUNTER 2024-01-06 11:05 | Outpatient (AMB) | payer MEDICARE, SELFPAY ==
--- NOTE | 2024-01-06 11:07 | MHC.OFFVIS ---
Intake Visit Reasons: 6 month leg check Intake Note: Patient presents for 6 month leg check. Patient has no complaints. Accompanied by: Self / Same As Patient Allergies Sulfa (Sulfonamide Antibiotics) [SULFA (SULFONAMIDE ANTIBIOTICS)] Allergy (Unknown, Verified 01/06/24 11:08) RASH acetaminophen [From Percocet] Adverse Reaction (Verified 01/06/24 11:08) Headache oxycodone [From Percocet] Adverse Reaction (Verified 01/06/24 11:08) Headache HPI HPI 6 month leg check: Details: Vanessa is an 88-year-old female patient presenting today for a six-month follow-up status post venaseal right great saphenous vein. She states she is feeling much better; however, she continues to endorse right upper thigh and hip pain she believes due to a old hip fracture with surgical fixation. She denies any other pain at this point. She denies any concerns with her left leg. She ambulates with a cane and/or walker all of the time due to her right hip issues. She is unable to walk long distances due to this. [facility] Medical History Hip fracture Hypothyroidism Melanoma Hyperlipidemia HTN (hypertension) Severe aortic stenosis Surgical History H/O mastectomy History of partial colectomy Status post aortic valve replacement Family History Father No problems noted. Mother No problems noted. Social History Household Members: Spouse and Family Housing: House Do you presently have visiting nurse or other home services: No Alcohol intake: former Patient Tobacco Use Status: Former Tobacco user Tobacco use type: Cigarette Cigarette Packs Per Day: 1 Second Hand Smoke Exposure: No service: No Current occupational status: retired Review of Systems Const Reports as per HPI and Denies weakness ENT Reports Normal hearing present and Denies dizziness Card Reports as per HPI, Denies chest pain, Denies chest pain at rest, Denies chest pain with activity, Denies dyspnea and Denies dyspnea on exertion Resp Reports as per HPI, Denies cough, Denies dyspnea and Denies dyspnea on exertion GI Reports as per HPI, Denies abdominal pain, Denies nausea and Denies vomiting Musc Denies numbness Skin/Breast Reports as per HPI, Denies erythema and Denies wounds Neuro Reports Normal hearing present, Denies dizziness, Denies numbness, Denies Sensory deficit (Neuro) and Denies weakness Psych Reports no additional complaints Endo Reports no additional complaints Physical Exam Const General: healthy appearing and no acute distress Orientation/consciousness: patient oriented x3 HEENT Head: Yes normal to inspection Ears: hearing grossly normal bilaterally Mouth: Normal oral and palatal mucosa present Resp Effort & Inspection: normal respiratory effort and able to speak in complete sentences Auscultation: clear to auscultation bilaterally Cardio Jugular venous distension: no JVD Rate: regular rate Rhythm: regular rhythm Heart sounds: S1 normal heart sound present and S2 normal heart sound present Bruits: no abdominal aortic bruits, no carotid bruits, no femoral bruits and no renal bruits Peripheral pulses: Peripheral pulses 2+ throughout GI Inspection: Yes normal to inspection Palpation (GI): No Abdominal aortic bruit present Skin Other: Bilateral positive DP pulses. General skin exam: no rashes or lesions noted Wounds: no wounds Hair: normal Neuro General: patient oriented x3 Cranial nerves: Yes Normal hearing present Cognition (Neuro): normal cognition Gait exam (Neuro): Normal gait present Motor exam (neuro): 5/5 motor strength present throughout Sensory Exam: No Sensory deficit (Neuro) Extrem General: Yes normal to inspection, Yes full ROM, Yes capillary refill normal and Yes normal gait Results Reviewed Results Reviewed: USVI Assessment & Plan Assessment & Plan (1) Varicose veins of right lower extremity with inflammation: Comment: 06/13/2023 - right great saphenous vein Cyanoacralate ablation Code(s): I83.11 - Varicose veins of right lower extremity with inflammation Category: Medical Plan: Patient is status post right great saphenous vein venous seal from earlier this year. She has healed well and has no concerns. She denies any pain bilaterally in the lower extremities. It was noted at her last visit that she may require a right small saphenous and left great saphenous vein ablation in the future; however, at this point she does not want to pursue any other surgical interventions. Patient states she has enough difficulty with walking and would not like to pursue any surgical interventions with either leg at this point. We did review the results from her US today. In short, the patient has evidence of venous insufficiency. I have discussed the pathophysiology with the patient. We have discussed conservative measures including compression, elevation, and exercise. I have also provided a handout regarding appropriate use of compression stockings and where to purchase good compression stockings as well. She states she has difficulty putting them on and has not/will not wear them at this point. Ambulation at this point it is difficult for the patient. The patient had an opportunity to ask questions regarding the treatment plan. All questions were answered. Imaging studies, laboratory studies and physical exam results were discussed and reviewed in detail. No major barriers to understanding were identified. The patient expressed understanding and agreement with the above treatment plan. The patient is aware they should contact our office by phone for worsening of the current condition or the appearance of new symptoms. After a lengthy discussion with the patient, we left it at the patient calling us if she decided to change her mind on surgical intervention or any further treatment options. Thank you for allowing me to participate in the vascular care of this patient. If you have any questions or concerns regarding the treatment for the above condition please do not hesitate to contact me. The office telephone contact is [phone]. Please note a longitudinal relationship has been created with the patient and we have been following and surveillance this chronic condition. This note is constructed using voice recognition software. While every effort has been made to ensure accuracy, cardiac monitor technician errors may have been included. Thank you for allowing me to participate in the care of your patient. Yours sincerely, TRI Ramirez Coding Level of Care Code Established Pt Est Pt Level 4 (46037) Established Pt Complex EM visit Add On G2211 Patient Type Established Diagnoses Varicose veins of right lower extremity with inflammation I83.11
== END 2024-01-06 11:24 | disposition home or self-care (01) ==
PROVIDERS: PCP Nurse Practitioner Family; Visit Provider Physician Assistant Surgical
DX: I83.11 Varicose veins of right lower extremity with inflammation (principal)
CPT/HCPCS: 99214; G2211

== ENCOUNTER → 2024-01-06 11:05 | Outpatient (BNVA) | payer MEDICARE, SELFPAY | PROVIDERS: PCP Nurse Practitioner Family; Visit Provider Physician Assistant Surgical | DX: I83.11 Varicose veins of right lower extremity with inflammation (principal); Z98.890 Other specified postprocedural states | CPT/HCPCS: 99212 ==

== ENCOUNTER → 2025-01-06 12:32 | Outpatient (REF) | payer MEDICARE, SELFPAY ==
--- NOTE | 2025-01-06 12:49 | CA_ITS ---
Transthoracic Echocardiogram Patient (Last, First, Middle): Vanessa Hightower, Gender: Female Date of : 1935 Age: 89 Procedure Date: 01/06/2025 Procedure Type: Transthoracic Echocardiogram Location: OP Height: 167. cm Weight: 74.84 kg BSA: 1.84 m2 Heart Rate: 53 bpm BP: 170 / 70 mmHg Hat Trimmer: NORMA Referring MD: Julio Cesar Min MD Yarn Worker: Julio Cesar Min MD Symptoms: Z95.2 - Presence of prosthetic heart valve Study Quality: Fair ECG Rhythm: Bradycardia Conclusions: - 1. Normal LV ejection fraction of 60 65% with pseudonormal filling pattern 2. At least moderately dilated left atrium 3. Normally functioning bioprosthetic aortic valve with mean gradient of 7 mm Hg 4. [id number] calcific mitral stenosis 5. Upper limits of normal ascending aortic size 6. No gross pericardial effusion Findings Left Ventricle Normal left ventricular size, thickness, and systolic function. The visually estimated ejection fraction is between 60-65%. Spectral Doppler is indicative of a pseudonormal filling pattern. Right Ventricle Normal right ventricular cavity size and systolic function. Atria The left atrium is moderately dilated. There is no evidence of interatrial shunt. The right atrium is mildly dilated. Aortic Valve A bioprosthetic aortic valve is present. The prosthetic aortic valve appears to be functioning normally. The aortic valve was not well visualized. The mean gradient is 7 mmHg. There is no aortic valve regurgitation. Mitral Valve There is moderate anterior and severe posterior mitral leaflet thickening. There is moderate anterior and moderate posterior mitral annular calcification. There is severe mitral annular calcification. There is no mitral valve regurgitation. There is mild to moderate mitral valve stenosis. Pulmonic Valve The pulmonic valve was not well visualized. Tricuspid Valve Likely normal tricuspid valve structure and function. Tricuspid regurgitation envelope is inadequate for calculation of right ventricular systolic pressure. Normal right atrial pressure. Great Vessels The pulmonary artery was not well visualized. There is no dilatation of the ascending aorta measuring 3.60 cm. Small plaque is seen in the sino tubular ridge. Venous The inferior vena cava is normal in size. Inferior vena cava flow is normal. Pericardium/Pleural There is no evidence of pericardial effusion. Prior Study Comparison Changes noted compared to prior study dated: 10/30/2023. [id number] calcific mitral stenosis is present Measurements 2D Linear Measurements IVSd: 1.12 0.6-0.9/0.6-1.0 cm LVIDd: 4.49 3.9-5.3/4.2-5.9 cm LVIDd Index: 2.44 2.4-3.2/2.2-3.1 cm/m2 LVIDs: 2.74 2.0-3.6 cm LVPWd: 0.99 0.7-1.1 cm LA Diam: 3.50 2.7-3.8/3.0-4.0 cm LAIDs Index: 1.90 1.5-2.3 cm/m2 LV Mass: 205.13 67-162/88-224 g LV Mass Index: 111.48 43-95/49-115 g/m2 LVOT Diam: 1.90 3.0+(-)1.3 cm 2D Systolic Function EF 4C: 64.80 >55% EF 2C: 63.50 >55% EF BiP: 64.40 >55% Mitral Valve MV VTI: 0.68 MV Pk Tim: 1.79 MV Mn Tim: 0.83 MV Pk Grad: 13.00 MV Mn Grad: 4.00 MV Pk E: 1.57 MV PK A: 1.64 MV Decel Time: 439.00 E/A: 1.00 E'Lateral: 8.16 E'Medial: 5.22 E/E' Med: 30.10 E/E' Lat: 19.20 PHT: 129.00 MVA PHT: 1.71 MVA Continuity: 1.38 Decel Thayer: 3.59 Aortic Valve AoV Pk Tim: 1.72 AoV Mn Tim: 1.22 AoV VTI: 0.49 AoV Pk Grad: 12.00 Aov Mn Grad: 7.00 RODRIGO Cont.VTI: 1.91 LVOT LVOT Pk Tim: 1.23 LVOT Mn Tim: 0.91 LVOT VTI: 0.33 LVOT Pk Grad: 6.00 LVOT Mn Grad: 4.00 LVOT Diam: 1.90 LVOT Area: 2.84 Diastolic Function MV Pk E: 1.57 MV Pk A: 1.64 E/A: 1.00 E'Medial: 5.22 E/E' Med: 30.10 E' Laterial: 8.16 E/E' Lat: 19.20 Right Ventricle TAPSE (mm): 18.20 TVS' Tim: 7.07 Tricuspid Valve RA Press: 3.00 Great Vessels Aorta Sinus of Valsalva: 2.60 2.0-3.5 cm Ao Asc: 3.60 2.1-3.4 cm Ao Arch: 3.10 Pulmonary Veins Pulm Vein S/D 1.10 Pulmonary Valve PV Pk Tim: 1.13 Peak PV Grad: 5.00 Updated in Other Vendor System with Status of Final Julio Cesar Min MD electronically signed on 01/06/2025 3:59:42 PM with status of Final
--- OUTSIDE RECORDS SUMMARY | 2025-01-06 15:43 | XMS_ITS | Clinical Summary ---
Author Organization [facility] Address [address] [address] Phone Care Team Providers Care Trade Show Manager Name Role Phone Christiane Greenwood NP Primary Care Provider [phone] Allergies Active Allergy Reactions Criticality Noted Date Comments Lisinopril 10/16/2016 Oxycodone Nausea And Vomiting 10/16/2016 Sulfasalazine 10/16/2016 Medications omeprazole (PRILOSEC) 20 MG capsule Take by mouth. Activ e levothyroxine (SYNTHROID, LEVOTHROID) 125 MCG tablet Take by mouth. Acti ve simvastatin (ZOCOR) 20 MG tablet Take by mouth. Activ e acetaminophen (TYLENOL ARTHRITIS PAIN) 650 MG CR tablet 1 tablet as needed Active aspirin 81 MG EC tablet 1 tablet Active atorvastatin (LIPITOR) 10 MG tablet Take 20 mg by mouth daily. Active furosemide (LASIX) 20 MG tabletIndication s:Essential hypertension Take 1 tablet (20 mg total) by mouth daily. 90 tablet 3 9 Active Additional Information Patient not taking.Reported on 02/24/2020 losartan (COZAAR) 100 MG tabletIndication s:Medication refill TAKE 1 TABLET BY MOUTH EVERY DAY 90 tablet 3 1 Active metoprolol succinate (TOPROL-XL) 25 MG 24 hr tabletIndication s:Medication refill TAKE 1 TABLET BY MOUTH EVERY DAY 90 tablet 3 1 Active Active Problems Problem Noted Date Diagnosed Date Essential hypertension 03/18/2017 Assessment & Plan (11/08/2017 6:00 PM EDT): - BP within range during today's office visit. She is tolerating the lasix. Continue on lasix and decreased dose of metoprolol. BMP prior to next visit. - She will follow up with Dr. Tate in February 2018 for already scheduled visit. 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 Continue with yearly echos. GI bleed 03/18/2017 Mixed hyperlipidemia 03/18/2017 Social History Tobacco Use Types Packs/Day Years Used Date Smoking Tobacco: Former Smokeless Tobacco: Never Alcohol Use Standard Drinks/Week Comments No 0 (1 standard drink = 0.6 oz pur e alcohol) Education Answer Date Recorded Are you interested in more education? Not on calixto e 07/19/2022 Are you concerned about learning? Not on file 07/19/2022 No 07/19/2022 No 07/19/2022 Digital Access Answer Date Recorded No 08/19/2022 No 08/19/2022 Reliable internet access at home? Not on file 08/19/2022 Device with a working camera? Not on file Comments Unknown Sex and Gender Information Value Date Recorded Sex Assigned at Not on file Legal Sex Female 10:13 PM EDT Gender Identity Not on file Sexual Orientation Not on file Last Filed Vital Signs Vital Sign Reading Time Taken Comments Blood Pressure 148/78 02/24/2020 11:12 AM EST Pulse 80 02/24/2020 11:12 AM EST Temperature - - Respiratory Rate 16 11/06/2017 2:50 PM EDT Oxygen Saturation 94% 02/24/2020 11:12 AM EST Inhaled Oxygen Concentration - - Weight 95.5 kg (210 lb 9.6 oz) 02/24/2020 11:12 AM EST Height 167.6 cm (5' 6 ) 08/19/2019 11:01 AM EDT Body Mass Index 33.99 08/19/2019 11:01 AM EDT Plan of Treatment Health Maintenance Due Date Last Done Comments Adult Td,Tdap Booster 1935 DEPRESSION SCREENING 1947 PNEUMOCOCCAL VACCINES (50+ years) (1 of 1 - PCV) 11/21/1987 ZOSTER VACCINES (1 of 2) 11/21/1987 OSTEOPOROSIS SCREENING INITI AL (ONE-TIME) 2002 RSV VACCINE (1 - 1-dose 75+ series) 2012 CREATININE LEVEL 08/18/2020 08/19/2019 POTASSIUM LEVEL 08/18/2020 08/19/2019 TSH LEVEL 08/18/2020 08/19/2019 INFLUENZA VACCINE (#1) 2024 03/02/2020 COVID-19 VACCINE (3 - 2024-2 6 season) 2024 08/19/2020, 07/29/2020 HEPATITIS A VACCINES Aged Out No long er eligible based on patient's age to complete this topic HIB VACCINES Aged Out No longer eligi ble based on patient's age to complete this topic MENINGOCOCCAL VACCINES (ACWY) Aged Out No longer eligible based on patient's age to complete this topic MENINGOCOCCAL VACCINES (B) Aged Out N o longer eligible based on patient's age to complete this topic Medical Devices Not on file Procedures Procedure Name Priority Date/Time Associated Diagnosis Comments TSH WITH REFLEX Routine 08/19/2019 12:03 PM EDT Acquired hypothyroidism COMPREHENSIVE METABOLIC PANEL Routine 08/19/2019 12:03 PM EDT Mixed hyperlipidemia from Last 3 Months or Most Recently Relevant to Health Maintenance Results * (ABNORMAL) Comprehensive metabolic panel (08/19/2019 12:03 PM EDT) SODIUM 139 133 - 146 mmol/L [facility] POTASSIUM 5.3(H) 3.3 - 5.1 mmol/L [facility] CHLORIDE 103 96 - 108 mmol/L [facility] CO2 26 21 - 35 mmol/L [facility] BUN 28(H) 6 - 19 mg/dL [facility] CREATININE 1.40 0.5 - 1.5 mg/dL [facility] GLUCOSE 102(H) 70 - 99 mg/dL [facility] ALBUMIN 4.2 3.9 - 4.8 g/dL [facility] TOTAL PROTEIN 8.2(H) 6.5 - 8.0 g/dL [facility] CALCIUM 9.9 8.4 - 10.3 mg/dL [facility] ALKALINE PHOSPHATASE 105 39 - 117 U/L [facility] TOTAL BILIRUBIN 0.4 0.0 - 1.2 mg/dL [facility] AST 27 0 - 37 U/L [facility] ALT 14 0 - 40 U/L [facility] GLOBULIN 4.0 1 - 4.8 g/dL [facility] EGFR 35(L) >59 mL/min/1.7 3m2 [facility] Comment:If patient is black, multiply result by 1.159. Estimated glomerular filtration rate calculated using the CKD-EPI equation. ANION GAP 15 10 - 20 mmol/L [facility] Blood 08/19/2019 12:0 3 PM EDT 08/19/2019 12:07 PM EDT Robert Tate MD LAB BLOOD ORDERABLES Rubi l Result [address] [address] * TSH with reflex (08/19/2019 12:03 PM EDT) TSH 0.43 0.27 - 4.20 uIU/mL [facility] Blood 08/19/2019 12:0 3 PM EDT 08/19/2019 12:07 PM EDT Robert Tate MD LAB BLOOD ORDERABLES Rubi l Result [address] [address] from Last 3 Months or Most Recently Relevant to Health Maintenance Insurance MEDICARE PART A & B [employer] SUPPLEMENT MEDICARE PART A & B [employer] MED[employer] SUPPLEMENT MEDICARE PART A & B [employer] MED[employer] SUPPLEMENT MEDICARE PART A & B [employer] MED[employer] SUPPLEMENT MEDICARE PART A & B [employer] MED[employer] SUPPLEMENT MEDICARE PART A & B [employer] MEDEX SUPPLEMENT MEDICARE PART A & B [facility] MEDEX SUPPLEMENT MEDICARE PART A & B [employer] MEDEX SUPPLEMENT MEDICARE PART A & B [employer] MEDEX SUPPLEMENT Care Teams Trade Show Manager Relationship Specialty Start Date End Date Christiane Greenwood NP [address] [place] [address] PCP - General Family Medicine 08/13/18 Additional Source Comments The information contained in this document represents components of the legal health record. It is not the complete legal health record.[facility]
--- OUTSIDE RECORDS SUMMARY | 2025-01-06 15:43 | XMS_ITS | Data Portability ---
Author Organization [place] - [facility], Allergy Address [address] [address] Assessment Encounter Date Assessment Date Assessment LastModified by Organization Details LastModified Time 01/28/2024 01/28/2024 88 year old female presents to the office for six month ear cleaning. Ears were meticulously cleaned bilaterally today with fine pics and suction. Patient is encouraged to avoid Q-tips in her ears relative to packing the wax in tighter. Yearly visits or as needed are recommended. [email or web address] Not available 01/28/2024 15:58:34 Plan of Treatment Reminders Order Date Submit Date Provider Last Modified By Organization Details Last Modified Time Details Appointments None record ed. Lab None record ed. Referral None record ed. Procedures None record ed. Surgeries None record ed. Imaging None record ed. Medication Orders None record ed. Patient TargetsNo targets recorded. Patient InstructionsNo instructions recorded. Reason for Referral None Reported. Problems Name Problem SNOMED Code Status Onset Date Resolution Date Notes Provider Name and Address Organization Details Recorded Time Impacted cerumen of bilateral ears 19881131449 21913 Active 2023 Impacted cerumen, bilateral ; Note: Date Diagnosed : 04/15/2023 2:51 PM (H61.23) Not Available [facility] 02:42:07 Sensorine ural hearing loss of bilateral ears [id number] Active 2023 Sensorine ural hearing loss, bilateral ; Note: Date Diagnosed : 04/15/2023 2:00 PM (H90.3) Not Available [facility] 02:42:13 Problem Notes None recorded. Procedures Surgical History Date Name Laterality Status Provider Name and Address Organization Details Recorded Time 4 Cerumen removal without microscope bilat completed Nita Albert [place] - [facility] 01/28/2024 15:58:12 Imaging Results None recorded. Procedure Notes None recorded. Medical Equipment None Reported. Allergies Allergen ID Allergen Name Allergen Category Reaction Reaction Severity Criticality Documentation Date Start Date Code Code System Note Provider Name and Address Organization Details Recorded Time 484760 acetamino phen / oxycodone medicatio n other Not available Not available 10/24/2023 21173 3 RxNorm React ion: Unkno wn; Not Available [facility] 4 00:31:42 831893 Substance with sulfonami de structure and antibacte rial mechanism of action (substanc e) medicatio n other Not available Not available 10/24/2023 00801 8003 SNOMED React ion: Unkno wn; Not Available [facility] 4 00:31:43 Medications Name Sig Start Date Stop Date Status Note LastModified by Organization Details LastModified Time amoxicillin 500 mg capsule TAKE 4 CAPS BY MOUTH 1 HOURS PRIOR TO DENTAL VISIT active Not Available Not Available No t Available atorvastatin 20 mg tablet TAKE 1 TABLET BY MOUTH DAILY. *LABS NEEDED FOR ADDITIONAL REFILLS* active Not Available Not Available No t Available amlodipine 5 mg tablet TAKE 1 TABLET BY MOUTH EVERY DAY active Not Available Not Available No t Available levothyroxin e 125 mcg tablet TAKE 1 TABLET BY MOUTH DAILY, FRI-FRI. HOLD ON SUNDAYS. LABS NEEDED FOR FURTHER REFILLS active Not Available Not Available No t Available omeprazole 20 mg capsule,vijay yed release TAKE 1 CAPSULE BY MOUTH EVERY DAY active Not Available Not Available No t Available metoprolol succinate ER 25 mg tablet,exten ded release 24 hr TAKE 1 TABLET BY MOUTH DAILY active Not Available Not Available Not Available losartan 100 mg tablet TAKE 1 TABLET BY MOUTH EVERY DAY active Not Available Not Available No t Available Vitals Date Recorded Body height Body mass index (BMI) Body weight Provider Name and Address Organization Details Last Updated DateTime 01/28/2024 170.18 cm 28.2 kg/m2 44776.63 g Elsa Poole [place] - [facility] 01/28/2024 15:38:26 Social History None recorded. Functional Status None recorded. Mental Status None recorded. Family History Nothing Reported. Medical History No medical history recorded. Gynecological HistoryNo gynecological history recorded. Obstetrics History GPAL:G 0 P 0 0 0 0 Past Encounters Encounter ID Performer Location Encounter Start Date Encounter Closed Date Diagnosis/Indication Diagnosis SNOMED-CT Code Diagnosis ICD10 Code Diagnosis IMO Codes Diagnosis Note [id number] NITA ALBERT PA-C [facility] [address] [place] [address] 01/28/2024 15:33:23 01/28/2024 15:50:56 Impacted cerumen of bilateral ears [id number] 833066 H61.23 Health Concerns Section Related Observation LastModified by Organization Detai ls LastModified Time None Recorded Concern Status LastModified by Organization Details LastModified Time None Recorded Advance Directives Directive None Recorded Payers Insurance Date Sequence Insurance Name Policy Number Policy Castillo Covered Member ID Castillo Member ID Guarantor Name 01/30/2024 2 [place] [id number] Vanessa Hightower [id number] Vanessa Hightower 01/28/2024 1 [place] [facility] Vanessa Hightower [id number] Vanessa Hightower Notes Date Note Type Note Provider Name and Address Organization Details Recorded Time 01/28/2024 text/html ROS as noted in the HPI 88 year old female presents to the office for six month ear cleaning. She denies otalgia or otorrhea. Nita moreira [place] - [facility] 01/28/2024 16:02:00 OBGyn Episode No OBEpisode recorded.
--- OUTSIDE RECORDS SUMMARY | 2025-01-06 15:43 | XMS_ITS | Clinical Summary ---
Author Organization [facility] Address [address] [place] [address] Care Team Providers Care Professor Of Musicology Name Role Phone Christiane Greenwood NP Primary Care Provider [phone] Allergies Active Allergy Reactions Criticality Noted Date Comments Lisinopril 10/16/2016 Oxycodone Nausea And Vomiting 10/16/2016 Sulfa Antibiotics 10/16/2016 Medications Medication Sig Dispensed Refills Start Date End Date Status aspirin 81 MG chewable tablet Chew 81 mg by mouth daily. 0 Active simvastatin (ZOCOR) tablet 20 mg Take 20 mg by mouth every night at bedtime. 0 Active losartan (COZAAR) 100 MG tablet Take 100 mg by mouth daily. 0 Active levothyroxine (SYNTHROID, LEVOXYL) tablet 125 mcg Take 125 mcg by mouth every morning on an empty stomach. 0 Active omeprazole (PRILOSEC) 20 MG capsule Take 20 mg by mouth daily. 0 Active acetaminophen (TYLENOL) 650 MG CR tablet 1 tablet as needed 0 Active metoprolol succinate (TOPROL-XL) 24 hr tablet 25 mg Take 25 mg by mouth daily. 0 Active furosemide (LASIX) 20 MG tablet Take 20 mg by mouth daily. 0 Active atorvastatin (LIPITOR) tablet 20 mg Take 20 mg by mouth daily. 0 Active Active Problems Problem Noted Date Diagnosed Date Essential hypertension 03/18/2017 Overview: Last Assessment & Plan: - BP within range during today's office visit. She is tolerating the lasix. Continue on lasix and decreased dose of metoprolol. BMP prior to next visit. - She will follow up with Dr. Tate in February 2018 for already scheduled visit. 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 Continue with yearly echos. 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 Social History Tobacco Use Types Packs/Day Years Used Date Smoking Tobacco: Former Smokeless Tobacco: Never Alcohol Use Standard Drinks/Week Comments No 0 (1 standard drink = 0.6 oz pur e alcohol) Sex and Gender Information Value Date Recorded Sex Assigned at Not on file Gender Identity Not on file Sexual Orientation Not on file Last Filed Vital Signs Vital Sign Reading Time Taken Comments Blood Pressure 159/56 12/03/2019 10:47 AM EDT Pulse 74 12/03/2019 10:47 AM EDT Temperature 36.2 C (97.1 F) 12/03/2019 10:47 AM EDT Respiratory Rate - - Oxygen Saturation - - Inhaled Oxygen Concentration - - Weight 94.8 kg (209 lb) 12/03/2019 10:47 AM EDT Height 167.6 cm (5' 6 ) 12/03/2019 10:47 AM EDT Body Mass Index 33.73 12/03/2019 10:47 AM EDT Plan of Treatment Health Maintenance Due Date Last Done Comments COVID-19 Vaccine (#1) 1942 Pneumococcal Vaccine (1 of 2 - PCV) 11[birth year]21/1941 Depression Screening 1949 Preventative Health Evaluation 11/21/1955 DTap / Tdap / Td (1 - Tdap) 1956 Shingrix-Zoster Vaccine (1 of 2) 1956 Fall Risk Assessment 2002 Osteoporosis Screening (DEXA Scan) 2002 RSV Adult > 60+ Yrs or Pregn ant (1 - 1-dose 75+ series) 2012 Influenza Vaccine (#1) 2024 Hepatitis B Vaccines Aged Out No long er eligible based on patient's age to complete this topic RSV Ped < 20 months Aged Out No longe r eligible based on patient's age to complete this topic Care Teams Professor Of Musicology Relationship Specialty Start Date End Date Christiane Greenwood NP [address] [facility] [place] [address] PCP - General Family Medicine 11/27/18
== END ==
LOC: HO.CARD 12:32
PROVIDERS: PCP Nurse Practitioner Family; Visit Provider Internal Medicine Cardiovascular Disease
DX: Z95.2 Presence of prosthetic heart valve (principal); I10 Essential (primary) hypertension
CPT/HCPCS: 93306

== ENCOUNTER → 2025-01-06 12:49 | Outpatient (BNV) | payer MEDICARE, SELFPAY | PROVIDERS: PCP Nurse Practitioner Family; Visit Provider Internal Medicine Cardiovascular Disease | DX: I34.2 Nonrheumatic mitral (valve) stenosis (principal); I51.7 Cardiomegaly; Z95.2 Presence of prosthetic heart valve | CPT/HCPCS: 93306 ==

== ENCOUNTER 2025-01-11 15:13 | Outpatient (AMB) | payer MEDICARE, SELFPAY ==
--- NOTE | 2025-01-11 15:33 | A.OFFVIS_ITS ---
Vital Signs 01/11/25 15:34 Height 5 ft 6 in Weight 178 lb 9.191 oz BMI 28.8 BP 138/78 Blood Pressure Location Lt brachial Position Sitting Pulse 56 Intake Visit Reasons: 1 year follow-up with ekg after echo Allergies Sulfa (Sulfonamide Antibiotics) (SULFA (SULFONAMIDE ANTIBIOTICS)) Allergy (Unknown, Verified 01/06/24 11:08) RASH acetaminophen (From Percocet) Adverse Reaction (Verified 01/06/24 11:08) Headache oxycodone (From Percocet) Adverse Reaction (Verified 01/06/24 11:08) Headache Medication List - Last Reconciled 01/11/25 by Julio Cesar Min MD acetaminophen (Tylenol Extra Strength) 1,000 mg PO QAM amlodipine 5 mg PO DAILY aspirin (Adult Low Dose Aspirin) 81 mg PO DAILY atorvastatin 20 mg PO DAILY cholecalciferol (vitamin D3) 25 mcg PO DAILY levothyroxine 125 mcg PO DAILY losartan 100 mg PO DAILY metoprolol succinate ER 25 mg PO DAILY omeprazole 20 mg PO DAILY polyethylene glycol 3350 (Miralax) 17 grams PO DAILY PRN [walker with bench seat As directed] HPI Comments Details: Vanessa comes for follow-up. She has no actual cardiac complaints. Main complaint in his significant pain in his right hip since the surgery for hip fracture. She says this lipids activity significantly. She recently had a fall, when she is stooped over to shredder picker something she fell. She was not ground for 1 hour and then was able to call paramedics to help her up. She had no injuries. Denied to come to the emergency room. She denies any shortness of breath which is worsening, orthopnea, PND, leg edema. No lightheadedness, syncope. Takes all her medications. Recent echocardiogram showed normal LV ejection fraction with normally functioning bioprosthetic aortic valve. [facility] Medical History Hip fracture Hypothyroidism Melanoma Hyperlipidemia HTN (hypertension) Severe aortic stenosis Surgical History H/O mastectomy History of partial colectomy Status post aortic valve replacement Family History Father No problems noted. Mother No problems noted. Social History Household Members: Spouse and Family Housing: House Do you presently have visiting nurse or other home services: No Alcohol intake: former Patient Tobacco Use Status: Former Tobacco user Tobacco use type: Cigarette Cigarette Packs Per Day: 1 Second Hand Smoke Exposure: No service: No Current occupational status: retired Review of Systems Const Denies chills, Denies fatigue, Denies fever(s), Denies frequent falls, Denies weakness, Denies weight gain and Denies weight loss ENT Denies dizziness Card Denies chest pain, Denies leg edema, Denies lightheadedness, Denies palpitations, Denies dyspnea, Denies dyspnea on exertion, Denies orthopnea and Denies other (loss of consciousness) Resp Denies cough, Denies dyspnea and Denies dyspnea on exertion GI Denies hematochezia and Denies change in stool character Musc Denies abnormal gait, Denies muscle weakness, Denies numbness, Denies radiating pain into limb and Denies tingling Neuro Denies abnormal gait, Denies dizziness, Denies frequent falls, Denies numbness, Denies tingling and Denies weakness Endo Denies fatigue and Denies palpitations Physical Exam Vital Signs: Last Vital Signs Pulse 56 01/11/25 15:34 BP 138/78 01/11/25 15:34 BMI result Body Mass Index 28.8 Repeat blood pressure is 152/70 Const General: cooperative, comfortable, no acute distress, alert, awake and well groomed Nutritional Appearance: obese Orientation/consciousness: patient oriented x3 Limitations: no limitations HEENT Head: Yes normocephalic and Yes atraumatic Neck Neck: Yes trachea midline, Yes supple and Yes no JVD Chest Chest palpation & inspection: abnormal inspection of the chest kyphotic and other (Well-healed sternotomy scar) Resp Effort & Inspection: normal respiratory effort Auscultation: clear to auscultation bilaterally Cardio Jugular venous distension: no JVD Palpation: normal PMI Rate: regular rate Rhythm: regular rhythm Heart sounds: S1 normal heart sound present, S2 normal heart sound present, Murmur heart sound present systolic early and Other heart sounds present (S4 present) GI Auscultation: normal bowel sounds Skin General skin exam: no rashes or lesions noted Neuro General: patient oriented x3 and no focal motor deficits Extrem General: No no clubbing, cyanosis or edema and Yes other (Bilateral varicosities as well as discoloration around the ankles and spide) Psych Appearance: grossly normal Office Procedures EKG Details: EKG shows sinus bradycardia otherwise normal EKG 16171-[id number], Complete Assessment & Plan Assessment & Plan (1) Status post aortic valve replacement: Comment: 23 mm bioprosthetic aortic valve replacement, bovine prosthesis, April [address] Nando Hendricks. No concomitant CAD Code(s): Z95.2 - Presence of prosthetic heart valve Category: Medical Plan: Status post transcatheter aortic valve replacement for severe aortic stenosis. She has done well since then. Valve is working well both clinically and by echocardiogram. Continue low-dose aspirin therapy. Continue vascular risk factor modification. SBE prophylaxis as per ACC/aha guidelines. (2) HTN (hypertension): Code(s): I10 - Essential (primary) hypertension Category: Medical Plan: Hypertension which is currently well optimized advised to monitor blood pressure at home maintain a log. Goal blood pressure less than 130/84. Continue current therapy. Low-salt diet was discussed. Stress mitigation strategies was discussed. Will follow up in the clinic in 1 year's time, sooner PRN. Thank you for allowing me to partake in her care Coding Level of Care Code Est Pt Level 4 (09030) Complex EM visit Add On G2211 Diagnoses Status post aortic valve replacement Z95.2 HTN (hypertension) I10 CPT Codes EKG - CPT: 54573-[id number], Complete ([id number])
[2025-01-11 15:34] VITALS: BP 138/78; PULSE 56; BMI 28.8
--- OUTSIDE RECORDS SUMMARY | 2025-01-11 20:24 | XMS_ITS | Data Portability ---
Author Organization [place] - [facility], Allergy Address [address] [address] Assessment Encounter Date Assessment Date Assessment LastModified [...] Recorded Time Impacted cerumen of bilateral ears 41967231748 41258 Active 2023 Impacted cerumen, bilateral ; Note: Date Diagnosed : 04/15/2023 2:51 PM (H61.23) Not Available [facility] 02:42:07 Sensorine ural hearing loss of bilateral ears 519847654 Active 2023 Sensorine ural hearing loss, bilateral ; Note: Date Diagnosed : 04/15/2023 2:00 PM (H90.3) Not Available [facility] 02:42:13 Problem Notes None recorded. Procedures Surgical History Date Name Laterality Status Provider Name and Address Organization Details Recorded Time 4 Cerumen removal without microscope bilat completed Nita Albert [place] - [facility] 01/28/2024 15:58:12 Imaging Results None recorded. Procedure Notes None recorded. Medical Equipment None Reported. Allergies Allergen ID Allergen Name Allergen Category Reaction Reaction Severity Criticality Documentation Date Start Date Code Code System Note Provider Name and Address Organization Details Recorded Time 430774 acetamino phen / oxycodone medicatio n other Not available Not available 10/24/2023 68651 3 RxNorm React ion: Unkno wn; Not Available [facility] 4 00:31:42 896930 Substance with sulfonami de structure and antibacte rial mechanism of action (substanc e) medicatio n other Not available Not available 10/24/2023 57769 8003 SNOMED React ion: Unkno wn; Not Available [facility] 4 00:31:43 Medications Name Sig Start [...] Updated DateTime 01/28/2024 170.18 cm 28.2 kg/m2 99905.63 g Elsa Poole [place] - [facility] 01/28/2024 15:38:26 Social History None recorded. Functional Status None recorded. Mental Status None recorded. Family History Nothing Reported. Medical History No medical history recorded. Gynecological HistoryNo gynecological history recorded. Obstetrics History GPAL:G 0 P 0 0 0 0 Past Encounters Encounter ID Performer Location Encounter Start Date Encounter Closed Date Diagnosis/Indication Diagnosis SNOMED-CT Code Diagnosis ICD10 Code Diagnosis IMO Codes Diagnosis Note [id number] NITA ALBERT PA-C [facility] [address] [place] [address] 01/28/2024 15:33:23 01/28/2024 15:50:56 Impacted cerumen of bilateral ears [id number] 089232 H61.23 Health Concerns Section Related Observation LastModified by Organization Detai ls LastModified Time None Recorded Concern Status LastModified by Organization Details LastModified Time None Recorded Advance Directives Directive None Recorded Payers Insurance Date Sequence Insurance Name Policy Number Policy Castillo Covered Member ID Castillo Member ID Guarantor Name 01/30/2024 2 [place] [id number] Vanessa Hightower [id number] Vanessa Hightower 01/28/2024 1 [place] [facility] Vanessa Hightower [id number] Vanessa Hightower Notes Date Note Type Note Provider Name and Address Organization Details Recorded Time 01/28/2024 text/html ROS as noted in the HPI 88 year old female presents to the office for six month ear cleaning. She denies otalgia or otorrhea. Nita moreira [place] - [facility] 01/28/2024 16:02:00 OBGyn Episode No OBEpisode recorded.
--- OUTSIDE RECORDS SUMMARY | 2025-01-11 20:24 | XMS_ITS | Clinical Summary ---
Author Organization [facility] Address [address] [address] Phone Care Team Providers Care Data Sme Name Role Phone Christiane Greenwood NP Primary Care Provider [phone] Allergies Active Allergy Reactions Criticality Noted Date [...] EDT) SODIUM 139 133 - 146 mmol/L [facility] POTASSIUM 5.3(H) 3.3 - 5.1 mmol/L [facility] CHLORIDE 103 96 - 108 mmol/L [facility] CO2 26 21 - 35 mmol/L [facility] BUN 28(H) 6 - 19 mg/dL [facility] CREATININE 1.40 0.5 - 1.5 mg/dL [facility] GLUCOSE 102(H) 70 - 99 mg/dL [facility] ALBUMIN 4.2 3.9 - 4.8 g/dL [facility] TOTAL PROTEIN 8.2(H) 6.5 - 8.0 g/dL [facility] CALCIUM 9.9 8.4 - 10.3 mg/dL [facility] ALKALINE PHOSPHATASE 105 39 - 117 U/L [facility] TOTAL BILIRUBIN 0.4 0.0 - 1.2 mg/dL [facility] AST 27 0 - 37 U/L [facility] ALT 14 0 - 40 U/L [facility] GLOBULIN 4.0 1 - 4.8 g/dL [facility] EGFR 35(L) >59 mL/min/1.7 3m2 [facility] Comment:If patient is black, multiply result by 1.159. Estimated glomerular filtration rate calculated using the CKD-EPI equation. ANION GAP 15 10 - 20 mmol/L [facility] Blood 08/19/2019 12:0 3 PM EDT 08/19/2019 12:07 PM EDT Robert Tate MD LAB BLOOD ORDERABLES Rubi l Result [address] [id number] * TSH with reflex (08/19/2019 12:03 PM EDT) TSH 0.43 0.27 - 4.20 uIU/mL [facility] Blood 08/19/2019 12:0 3 PM EDT 08/19/2019 12:07 PM EDT Robert Tate MD LAB BLOOD ORDERABLES Rubi l Result [address] [address] from Last 3 Months or Most Recently Relevant to Health Maintenance Insurance MEDICARE PART A & B [employer] MEDEX SUPPLEMENT MEDICARE PART A & B [employer] MEDEX SUPPLEMENT MEDICARE PART A & [employer] MEDEX SUPPLEMENT MEDICARE PART A & [employer] MEDEX SUPPLEMENT MEDICARE PART A & [employer] MEDEX SUPPLEMENT MEDICARE PART A & [employer] MEDEX SUPPLEMENT MEDICARE PART A & B [facility] MEDEX SUPPLEMENT MEDICARE PART A & B [employer] MED[employer] SUPPLEMENT MEDICARE PART A & B [employer] MEDEX SUPPLEMENT Care Teams Data Sme Relationship Specialty Start Date End Date Christiane Greenwood NP [address] [place] [address] PCP - General Family Medicine 08/13/18 Additional Source Comments The information contained in this document represents components of the legal health record. It is not the complete legal health record.[facility]
--- OUTSIDE RECORDS SUMMARY | 2025-01-11 20:24 | XMS_ITS | Clinical Summary ---
Author Organization [facility] Address [address] [place] [address] Care Team Providers Care Hunter Name Role Phone Christiane Greenwood NP Primary Care Provider [phone] Allergies Active Allergy Reactions Criticality Noted Date [...] age to complete this topic Care Teams Hunter Relationship Specialty Start Date End Date Christiane Greenwood NP [address] [place] [address] [facility] [place] [address] PCP - General Family Medicine 11/27/18
== END 2025-01-11 16:04 | disposition home or self-care (01) ==
LOC: HO.HCS 15:14
PROVIDERS: PCP Nurse Practitioner Family; Visit Provider Internal Medicine Cardiovascular Disease
DX: Z95.2 Presence of prosthetic heart valve (principal); I10 Essential (primary) hypertension
CPT/HCPCS: 93010; 99214; G2211

== ENCOUNTER → 2025-01-11 15:13 | Outpatient (BNVA) | payer MEDICARE, SELFPAY | PROVIDERS: PCP Nurse Practitioner Family; Visit Provider Internal Medicine Cardiovascular Disease | DX: I10 Essential (primary) hypertension (principal); Z95.2 Presence of prosthetic heart valve | CPT/HCPCS: 93005; 99212 ==